=== PATIENT | female | born 1955 | race Caucasian/White ===

== ENCOUNTER 2017-09-27 07:25 | Inpatient (IN) | payer MEDICARE, MEDICAID ==
[~2017-09-27] VITALS: Ht 167.6 cm; Wt 181.9 kg
[~2017-09-27 07:25] MED LIST: BUMETANIDE0.5 MG PO; LEVEMIR SUBQ; MYSOLINE250 M1 PO; NEURONTIN 300300 M1 PO; NORVASC2.5 MG PO; NOVOLOG100 UNIT/1 SUBQ; PREDNISONE50 MG PO; ROBAXIN 750 MG750 M1 PO; SYNTHROID50 MCG PO; TOPAMAX 100 MG100 MG PO; ZPAK PO
[2017-09-27 07:26] VITALS: BP 192/99
[2017-09-27 08:05] LABS: ABSOLUTE EOSINOPHILS 0.5 thou/uL (0.0-0.7); ABSOLUTE MONOCYTES 0.4 thou/uL (0.0-1.2); ABSOLUTE NEUTROPHILS 4.9 thou/uL (1.6-8.1); BASOPHILS 0.7 %; HEMATOCRIT 42.5 % (37.0-47.0); HEMOGLOBIN 14.2 gm/dL (12.0-15.0); LYMPHOCYTES 14.3 %; MCH 31.2 pg (26.0-34.0); MCHC 33.5 g/dL (28.0-37.0); MONOCYTES 5.2 %; MPV 10.6 fl. (7.2-11.1); NUCLEATED RBCS 0 /100WBC; PLATELET COUNT* 139 thou/uL (150-400); POLYS 71.8 %; RBC 4.57 mil/uL (4.20-5.00); RDW-CV 13.8 % (10.5-14.5); WBC 6.9 thou/uL (4.0-11.0)
[2017-09-27 08:18] LABS: ANION GAP 6 mmol/L (7-16); BUN 12 mg/dL (7-18); CALCIUM 8.4 mg/dL (8.5-10.1); CHLORIDE 101 mmol/L (98-107); CO2 30 mmol/L (21-32); GLUCOSE 167 mg/dL (70-99); POTASSIUM 4.2 mmol/L (3.5-5.1); SODIUM 137 mmol/L (136-145)
[2017-09-27 08:24] LABS: INFLUENZA A ANTIGEN None Detected (None Detect); INFLUENZA B ANTIGEN None Detected (None Detect)
[2017-09-27 08:28] LABS: ALKALINE PHOSPHATASE 97 U/L (46-116); LIPASE 66 U/L (73-393); MAGNESIUM 1.6 mg/dL (1.8-2.4); NT-PRO BRAIN NAT PEPTIDE 285 pg/mL (<300); SGOT 32 U/L (15-37); SGPT 45 U/L (30-65); TOTAL BILIRUBIN 0.3 mg/dL (<0.1-1.0); TROPONIN-I LEVEL <0.06 ng/mL (<0.06)
[2017-09-27 08:58] LABS: URINE BILIRUBIN NEGATIVE (Negative); URINE BLOOD TRACE (Negative); URINE CLARITY CLEAR; URINE COLOR YELLOW; URINE GLUCOSE-RANDOM NEGATIVE (Negative); URINE KETONES NEGATIVE (Negative); URINE LEUKOCYTES-REFLEX NEGATIVE (Negative); URINE NITRITE-REFLEX NEGATIVE (Negative); URINE PROTEIN 3+ (Negative); URINE SPECIFIC GRAVITY 1.025 (1.005-1.030); URINE UROBILINOGEN 0.2 E.U./dl (0.2-1.0)
[2017-09-27 09:11] LABS: SQUAMOUS >10 Many /LPF (0-3)
[2017-09-27 09:12] LABS: HYALINE CASTS 0-3 Few /LPF (None Seen); MUCUS None Seen strn/LPF (None Seen)
[2017-09-27 09:13] LABS: BACTERIA-REFLEX 1-9 Few /HPF (None Seen); CRYSTALS None Seen /LPF (None Seen); URINE RBC 0-2 Rare /HPF (0-2); URINE WBC-REFLEX 6-15 Few /HPF (0-5)
[2017-09-27] MEDS ORDERED: ULTRAM 50MG TAB50 MG PO (10:34)
[2017-09-27] MEDS ORDERED: VENTOLIN HFA 1818 GM INH (10:34)
[2017-09-27] MEDS ORDERED: RESTASIS1 EACH OPHTHALMIC (10:35)
[2017-09-27] MEDS ORDERED: SINGULAIR 10 MG10 M1 PO (10:36)
[2017-09-27] MEDS ORDERED: BUMETANIDE0.25 MG/1 IM (10:36)
[2017-09-27] MEDS ORDERED: OXYBUTYNIN 5 MG5 M2 PO (10:37)
[2017-09-27] MEDS ORDERED: OMEPRAZOLE 20 MG CAP PO (10:37)
[2017-09-27 12:00] VITALS: BP 131/71
[2017-09-27 12:30] VITALS: BP 171/82
--- NOTE | 2017-09-27 13:28 | NUR ---
pt to room from ER, appears alert oo x 3, denies chest pain, denies SOB at rest, although appears sl dyspeinic at rest, came up on BIPAP machine , switched to 6l per nc to eat, states has heasdache , other no pain
--- NOTE | 2017-09-27 13:32 | NUR ---
pt had taken off the bipap and turned it off and put on NC
[2017-09-27 16:00] VITALS: BP 131/47
[2017-09-27 17:04] LABS: BE -2.2 mmol/L (-2 to +3); HCO3 23.5 mmol/L (22.0-26.0); PCO2 43.7 mmHg (35.0-45.0); PO2 109.4 mmHg (75.0-100.0); pH 7.349 (7.340-7.450)
--- NOTE | 2017-09-27 18:52 | NUR ---
PT RESTING IN BED, WITHOUT C/O . O X 4, ON O2 AT 6L PER NC., ABGS DONE, WILL PENNY ATKINSAP AT HS
[2017-09-27 20:00] VITALS: BP 140/55
[2017-09-28] VITALS: BP 154/56
[2017-09-28 02:05] LABS: HEMATOCRIT 41.1 % (37.0-47.0); HEMOGLOBIN 13.6 gm/dL (12.0-15.0); MCH 31.2 pg (26.0-34.0); MCHC 33.1 g/dL (28.0-37.0); MCV 94.3 fL (80.0-100.0); MPV 10.3 fl. (7.2-11.1); RBC 4.36 mil/uL (4.20-5.00); RDW-CV 13.8 % (10.5-14.5); WBC 8.4 thou/uL (4.0-11.0)
[2017-09-28 02:54] LABS: POTASSIUM 4.6 mmol/L (3.5-5.1); TOTAL BILIRUBIN 0.2 mg/dL (<0.1-1.0)
[2017-09-28 02:55] LABS: ALBUMIN 2.8 g/dL (3.4-5.0); CALCIUM 8.4 mg/dL (8.5-10.1); MAGNESIUM 2.1 mg/dL (1.8-2.4); TOTAL PROTEIN 6.7 g/dL (6.4-8.2)
--- NOTE | 2017-09-28 03:53 | NUR ---
PT ALERT ORIENTED. PT OBESE. GETS UP TO BSC WITH 1 PERSON ASSIST. TRAMADOL GIVEN FOR BACK AND LEG PAIN AT BEDTIME. TELEMETRY SHOWS SR 80S. MANY CAT SCRATCHES ON THERESA LEGS AND ARMS. PT STATES THEY ARE FROM A CAT. INITAL ASSESSMENT O2 AT 6 LITERS NC. ON BIPAP AT HS 14/6, 12 AND 35% WILL CONTINUE TO MONITOR.
[2017-09-28 04:13] VITALS: BP 138/69
[2017-09-28 08:00] VITALS: BP 173/76
--- NOTE | 2017-09-28 09:50 | NUR ---
ASSUMED RESPONSIBILITY OF PT THIS AM PT IS ALERT AND ORIENTEDX4 FORGETFUL WITH SOME TIMES SOA NOTED AND CONGESTION PT COUGHS UP CLEAR/YELLOW THICK SPUTUM AT TIMES ON 4L NC AND DOES NOT WEAR AT HOME PT C/O PAIN 6 OUT OF 10 IN BACK AND KNEES HER 'CHRONIC PAIN USUALLY 3-4' GAVE TRAMADOL WITH EFFECTIVENESS AT BEDSIDE DISCUSSED 'CAT SCRATCHES' ALL OVER BODY AND ENCOURAGED DECLAWING OR MAKING THEM OUTSIDE CATS D/T THE NUMEROUS AMOUNTS AND COULD CAUSE INFECTION PT DOES NOT AMBULATE AND SITS IN HER CHAIR MOST OF THE DAY STRONG FOUL ODOR NOTED FROM HER BODY NO REDNESS OR YEAST LIKE SYMTPOMS BESIDES THE SMELL, IN ABD FOLDS PT WILL PIVOT TO BSC BUT ALSO IS INCONTINENT AT TIMES ENCOURAGED TO CALL OUT BEFORE THAT HAPPENS BLOOD PRESSURE AND PULSE ELEVATED MEDS GIVEN LS WITH WHEEZING AND COARSE IN UPPER LOBES CALL LIGHT IN REACH CALLS OUT APPROPRIATELY WILL CONT TO MONITOR BED ALARM ON
[2017-09-28 12:00] VITALS: BP 143/51
--- NOTE | 2017-09-28 12:34 | EKG ---
[place] [address] ELECTROCARDIOGRAM REPORT Name: HEATHER DIEHL Room: [address] ADM IN [facility].#: [id number] Admission: 09/27/17 Attend Phys: Aruna Damico MD Discharge: Date of : 53 Report #: [id number] THIS REPORT FOR: //name// [facility] ED Test Date: 2017-09-27 Test Time: 07:47:23 Pat Name: HEATHER DIEHL Department: Room: [facility] Gender: F Floor Nurse: Abril RUBIO : 1955 Requested By: Williams Moffett Order Number: [id number] MD: Piter Villaseñor Measurements Intervals [employer] Rate: 122 P: 61 MS: 164 QRS: 12 QRSD: 77 T: 74 QT: 366 QTc: 522 Interpretive Statements Sinus tachycardia Prolonged QT interval Compared to ECG 07/14/2017 11:49:12 Prolonged QT interval now present Sinus rhythm no longer present Atrial premature complex(es) no longer present T-wave abnormality no longer present Electronically Signed On 09-28-2017 12:34:13 ICT QUALITY ASSURANCE ENGINEER by Piter Villaseñor [email or web address] <ELECTRONICALLY SIGNED> By: Melissa Villaseñor MD, [facility] 09/28/17 1234 0747 0747 Melissa Villaseñor MD, [facility] /EPI
--- NOTE | 2017-09-28 17:13 | NUR ---
PT DOWN TO ORTHO ROOM 111 REPORT GIVEN TO KADEN LONDONO NO CONCERNS AT THIS TIME
--- NOTE | 2017-09-28 17:30 | NUR ---
PATIENT ARRIVED TO UNIT AT 1710. RECIEVED REPORT FROM SPRING ESPARZA. PATIENT ALERT AND ORIENTED X 4. VITAL SIGNS STABLE ON 4L O2 NASAL CANULA. AGREE WITH PREVIOUE CHARTING AND ASSESSMENT.
[2017-09-28 21:00] VITALS: BP 123/48
[2017-09-28 23:42] VITALS: BP 160/61
[2017-09-29 04:23] VITALS: BP 161/73
[2017-09-29 05:16] LABS: ABSOLUTE BASOPHILS 0.1 thou/uL (0.0-0.2); ABSOLUTE LYMPHOCYTES 1.4 thou/uL (0.8-5.3); ABSOLUTE MONOCYTES 0.4 thou/uL (0.0-1.2); ABSOLUTE NEUTROPHILS 5.8 thou/uL (1.6-8.1); BASOPHILS 0.8 %; EOSINOPHILS 0.1 %; HEMATOCRIT 39.6 % (37.0-47.0); HEMOGLOBIN 13.1 gm/dL (12.0-15.0); LYMPHOCYTES 18.1 %; MCH 31.2 pg (26.0-34.0); MCHC 33.1 g/dL (28.0-37.0); MCV 94.3 fL (80.0-100.0); MONOCYTES 5.1 %; MPV 10.3 fl. (7.2-11.1); NUCLEATED RBCS 0 /100WBC; PLATELET COUNT* 146 thou/uL (150-400); POLYS 75.9 %; RDW-CV 14.1 % (10.5-14.5); WBC 7.7 thou/uL (4.0-11.0)
--- NOTE | 2017-09-29 05:38 | NUR ---
ALERT AND ORIENTED X4. UP TO BEDSIDE COMMODE WITH 1ASSIST. VOIDING WITHOUT DIFFICLTY. DENIES PAIN OR NAUSEA. ON BIPAP WHILE SLEEPING AND ON 4L/NC WHEN UP DURING THE DAY. LUNG SOUNDS COARSE WITH AN OCCASSIONAL WHEEZING NOTED. HAS NONPRODUCTIVE COUGH. O2 SAT 97% WITH O2. CALL LIGHT WITHIN REACH.
[2017-09-29 08:00] VITALS: BP 131/81
--- NOTE | 2017-09-29 09:49 | NUR ---
DC ORDERS REVIEWED. PT STATES SHE DOES NOT WANT HH AND USES [facility] FOR O2. CURRENT RX WITH DR CANO
[2017-09-29] MEDS ORDERED: PREDNISONE 10 M10 MG PO (10:01)
[2017-09-29] MEDS ORDERED: LEVAQUIN 500 M500 M3 PO (10:02)
[2017-09-29] MEDS ORDERED: DUONEB 2.5-0.5 M3 ML INH (10:03)
[2017-09-29 10:23] VITALS: BP 131/81
--- NOTE | 2017-09-29 13:01 | NUR ---
RECEIVED PT ORDERS ON 09/28/17 AT 1127. ATTEMPTED EVALUATION THIS AM HOWEVER PT HAD DISCHARGED FROM HOSPITAL PRIOR TO EVALUATION ATTEMPT.
[2018-02-03] MEDS ORDERED: DULCOLAX10 MG RECTAL (13:00)
[2018-02-03] MEDS ORDERED: LOPRESSOR25 PO (13:00)
[2018-02-03] MEDS ORDERED: TYLENOL325 MG PO (13:01)
[2018-02-03] MEDS ORDERED: MILK OF MA400 MG/5 M PO (13:01)
[2018-02-03] MEDS ORDERED: NORCO 5-325 TA1 EACH PO (13:02)
[2018-02-03] MEDS ORDERED: PERCOCET PO (13:02)
[2018-02-03] MEDS ORDERED: VITAMINC500 PO (13:03)
[2018-02-03] MEDS ORDERED: UNICOMPLEX M TA1 TA1 PO (13:03)
[2018-02-03] MEDS ORDERED: NYAMYC15 GM TOP (13:04)
== END 2017-09-29 11:30 | disposition home or self-care (01) | DRG 177 ==
LOC: M.ERS 07:25 → M.ORTHSURG 09:27 → M.TBA-ER 09:27 → M.2W 12:53 → M.ORTHSURG 09-28 16:46
PROVIDERS: Emergency Medicine Emergency Medical Services; ADMIT Internal Medicine
PROC: 5A09457 Assistance with Respiratory Ventilation, 24-96 Consecutive Hours, Continuous Positive Airway Pressure (ICD-10-PCS; principal; 2017-09-27)
DX: J15.6 Pneumonia due to other Gram-negative bacteria (principal); J96.01 Acute respiratory failure with hypoxia; J44.1 Chronic obstructive pulmonary disease with (acute) exacerbation; J44.0 Chronic obstructive pulmonary disease with (acute) lower respiratory infection; I10 Essential (primary) hypertension; E11.9 Type 2 diabetes mellitus without complications; Z87.891 Personal history of nicotine dependence; Z79.4 Long term (current) use of insulin; Z79.899 Other long term (current) drug therapy; Z88.1 Allergy status to other antibiotic agents; Z88.2 Allergy status to sulfonamides

== ENCOUNTER → 2017-10-20 | Outpatient (CLI) | payer MEDICARE, MEDICAID ==
[~2017-10-20] MED LIST changes: +ACIDOPHILUS1 EAC4 PO; +ASPIRIN325 PO; +AUGMENTIN 875-1 EACH PO; +AZITHROMYCIN 2250 MG PO; +BUMETANIDE0.25 MG/1 IM; +CARDIZEM CD240 MG PO; +CEFUROXIME250 MG PO; +CIPRO500 MG PO; +DIGOXIN250 MCG PO; +DULCOLAX10 MG RECTAL; +DUONEB 2.5-0.5 M3 ML INH; +FLAGYL500 M1 PO; +FLAGYL500 MG PO; +FLECAINIDE ACET50 M1 PO; +FLUCONAZOLE 10100 MG PO; +FOLIC ACID1 MG PO; +HYDROCHLOROTH12.5 M1 PO; +HYDROCODONE-AP1 EAC6 PO; +LEVAQUIN 500 M500 M3 PO; +LIDOCAINE1 EACH TRANSDERM; +LISINOPRIL10 MG PO; +LOPRESSOR25 PO; +MILK OF MA2400 MG/10 PO; +MILK OF MA400 MG/5 M PO; +MYSOLINE50 MG PO; +NORCO 5-325 TA1 EACH PO; +NORVASC2.5 MG; +NYAMYC15 GM TOP; +NYSTATIN 100,0015 G1 TOP; +OMEPRAZOLE 20 MG CAP PO; +OXYBUTYNIN 5 MG5 M2 PO; +PACERONE 200 M200 M1 PO; +PERCOCET PO; +PRADAXA150 MG PO; +PREDNISONE 10 M10 MG PO; +PROPAFENONE 15150 MG PO; +RESTASIS1 EACH OPHTHALMIC; +SINGULAIR 10 MG10 M1 PO; +SYNTHROID75 MCG PO; +TYLENOL325 MG PO; +ULTRAM 50MG TAB50 MG PO; +UNICOMPLEX M TA1 TA1 PO; +VANCOCIN 125 M125 M1 PO; +VENTOLIN HFA 1818 GM INH; +VITAMINC500 PO; +VOLTAREN GEL 1100 G2 TOP; +ZITHROMAX250 MG NG
== END ==
LOC: M.RAD 13:56
DX: R05 Cough (principal); R06.2 Wheezing

== ENCOUNTER 2017-11-09 11:23 | Inpatient (IN) | payer MEDICARE ==
[~2017-11-09] VITALS: Ht 167.6 cm; Wt 185.1 kg
[~2017-11-09 11:23] MED LIST changes: -ACIDOPHILUS1 EAC4 PO; -ASPIRIN325 PO; -AUGMENTIN 875-1 EACH PO; -AZITHROMYCIN 2250 MG PO; -CARDIZEM CD240 MG PO; -CEFUROXIME250 MG PO; -CIPRO500 MG PO; -DIGOXIN250 MCG PO; -DULCOLAX10 MG RECTAL; -FLAGYL500 M1 PO; -FLAGYL500 MG PO; -FLECAINIDE ACET50 M1 PO; -FLUCONAZOLE 10100 MG PO; -FOLIC ACID1 MG PO; -HYDROCHLOROTH12.5 M1 PO; -HYDROCODONE-AP1 EAC6 PO; -LIDOCAINE1 EACH TRANSDERM; -LISINOPRIL10 MG PO; -LOPRESSOR25 PO; -MILK OF MA2400 MG/10 PO; -MILK OF MA400 MG/5 M PO; -MYSOLINE50 MG PO; -NORCO 5-325 TA1 EACH PO; -NORVASC2.5 MG; -NYAMYC15 GM TOP; -NYSTATIN 100,0015 G1 TOP; -PACERONE 200 M200 M1 PO; -PERCOCET PO; -PRADAXA150 MG PO; -PROPAFENONE 15150 MG PO; -SYNTHROID75 MCG PO; -TYLENOL325 MG PO; -UNICOMPLEX M TA1 TA1 PO; -VANCOCIN 125 M125 M1 PO; -VITAMINC500 PO; -VOLTAREN GEL 1100 G2 TOP; -ZITHROMAX250 MG NG
[2017-11-09 11:32] VITALS: BP 214/115
[2017-11-09 11:54] LABS: URINE BILIRUBIN NEGATIVE (Negative); URINE BLOOD 1+ (Negative); URINE CLARITY CLEAR; URINE COLOR YELLOW; URINE GLUCOSE-RANDOM TRACE (Negative); URINE KETONES NEGATIVE (Negative); URINE LEUKOCYTES-REFLEX NEGATIVE (Negative); URINE NITRITE-REFLEX NEGATIVE (Negative); URINE PROTEIN 3+ (Negative); URINE UROBILINOGEN 0.2 E.U./dl (0.2-1.0)
[2017-11-09 12:09] LABS: BE 2.1 mmol/L (-2 to +3); HCO3 24.8 mmol/L (22.0-26.0); PCO2 33.7 mmHg (35.0-45.0); PO2 60.9 mmHg (75.0-100.0); pH 7.485 (7.340-7.450)
[2017-11-09 12:13] LABS: HEMATOCRIT 47.1 % (37.0-47.0); HEMOGLOBIN 15.6 gm/dL (12.0-15.0); MCH 30.6 pg (26.0-34.0); MCHC 33.1 g/dL (28.0-37.0); MCV 92.2 fL (80.0-100.0); MPV 10.8 fl. (7.2-11.1); NUCLEATED RBCS 0 /100WBC; PLATELET COUNT* 139 thou/uL (150-400); RBC 5.11 mil/uL (4.20-5.00); WBC 19.3 thou/uL (4.0-11.0)
[2017-11-09 12:18] LABS: CASTS None Seen /LPF (None Seen); CRYSTALS None Seen /LPF (None Seen); SQUAMOUS 4-10 Moderate /LPF (0-3)
[2017-11-09 12:19] LABS: BACTERIA-REFLEX 1-9 Few /HPF (None Seen); URINE RBC 3-10 Few /HPF (0-2); URINE WBC-REFLEX 6-15 Few /HPF (0-5)
[2017-11-09 12:21] LABS: ANION GAP 10 mmol/L (7-16); BUN 14 mg/dL (7-18); CALCIUM 9.2 mg/dL (8.5-10.1); CHLORIDE 99 mmol/L (98-107); CO2 27 mmol/L (21-32); CREATININE 1.2 mg/dL (0.6-1.3); GLUCOSE 241 mg/dL (70-99); POTASSIUM 4.1 mmol/L (3.5-5.1); SODIUM 136 mmol/L (136-145)
[2017-11-09 12:28] LABS: ALBUMIN 2.8 g/dL (3.4-5.0); ALKALINE PHOSPHATASE 108 U/L (46-116); SGOT 38 U/L (15-37); SGPT 47 U/L (30-65); TOTAL BILIRUBIN 0.7 mg/dL (<0.1-1.0); TOTAL PROTEIN 7.5 g/dL (6.4-8.2); TROPONIN-I LEVEL <0.06 ng/mL (<0.06)
[2017-11-09 12:32] LABS: ABSOLUTE LYMPHOCYTES 0.2 thou/uL (0.8-5.3); ABSOLUTE MONOCYTES 0.8 thou/uL (0.0-1.2); ABSOLUTE NEUTROPHILS 18.3 thou/uL (1.6-8.1); PLATELET ESTIMATE DECREASED
[2017-11-09 15:41] LABS: AMP/METHAMP Negative (Negative); BARBITURATES POSITIVE (Negative); BENZODIAZEPINES Negative (Negative); COCAINE Negative (Negative); METHADONE Negative (Negative); OPIATES POSITIVE (Negative); PCP Negative (Negative); THC Negative (Negative)
[2017-11-09 16:46] VITALS: BP 161/66
[2017-11-09 17:00] VITALS: BP 160/61
--- NOTE | 2017-11-09 17:57 | NUR ---
PT ADMITTED TO ROOM 232 W/ DX OF COPD / ABDOMINAL PAIN W/ ASSOCIATED HYPOXEMIA. POSITIVE SEPSIS SCREENING. PHYSICIAN NOTIFIED. REFER TO ASSESSMENT. PT HAS MULTIPLE CAT SCRATCHES TO BLE. EXCORIATED UNDER ABDOMINAL FOLDS. NEW ORDER OBTAINED FOR NYSTATIN POWDER FOR ABDOMINAL FOLDS AND BREASTS FOLDS. PT FEBRILE AT 102.5 F ON ADMIT. PRN TYLENOL ADMINISTERED W/ ICE PACKS PLACED TO AXILLARY. BARIATRIC BED ORDERED FOR PT. AND GRAND DAUGHTER AT BEDSIDE DURING ADMIT. PT REPORTS SHE IS NONAMBULATORY AT HOME AND USES A MOTORIZED W/C. HAM TO DEPENDENT DRAINAGE. TELE ST. NO OTHER CONCERNS AT THIS TIME. CLWR. WCTM.
[2017-11-09 20:30] VITALS: BP 122/57
[2017-11-09 21:25] LABS: MAGNESIUM 1.2 mg/dL (1.8-2.4); PHOSPHORUS* 2.3 mg/dL (2.5-4.9)
[2017-11-10] VITALS: BP 112/55
[2017-11-10 04:00] VITALS: BP 136/52
[2017-11-10 04:43] LABS: ABSOLUTE LYMPHOCYTES 1.1 thou/uL (0.8-5.3); ABSOLUTE MONOCYTES 1.1 thou/uL (0.0-1.2); ABSOLUTE NEUTROPHILS 17.6 thou/uL (1.6-8.1); BASOPHILS 0.2 %; HEMATOCRIT 37.3 % (37.0-47.0); LYMPHOCYTES 5.4 %; MCH 30.6 pg (26.0-34.0); MCV 92.5 fL (80.0-100.0); MONOCYTES 5.7 %; NUCLEATED RBCS 0 /100WBC; PLATELET COUNT* 125 thou/uL (150-400); POLYS 88.7 %; RBC 4.03 mil/uL (4.20-5.00); WBC 19.8 thou/uL (4.0-11.0)
[2017-11-10 04:56] LABS: INR 1.3; PROTIME 12.9 Seconds (9.20-11.50)
[2017-11-10 04:58] LABS: PREALBUMIN 12.3 mg/dL (18.0-35.7)
[2017-11-10 05:18] LABS: HEMOGLOBIN 12.3 gm/dL (12.0-15.0)
[2017-11-10 05:26] LABS: CALCIUM 7.5 mg/dL (8.5-10.1); CREATININE 1.3 mg/dL (0.6-1.3); MAGNESIUM 1.3 mg/dL (1.8-2.4); POTASSIUM 3.8 mmol/L (3.5-5.1)
[2017-11-10 05:37] LABS: INFLUENZA A ANTIGEN None Detected (None Detect); INFLUENZA B ANTIGEN None Detected (None Detect)
--- NOTE | 2017-11-10 05:56 | NUR ---
ASSUMED CARE AT 1999, ASSESSMENT CHARTED. PATIENT ALERT/ORIENTED X4, RESTING IN BED. DR. SU NOTIFIED, STATES WANTING THE IVF BOLUS GIVEN PER SEPSIS PROTOCOL, TO RECEIVE A TOTAL OF 5319 ML FOR THE INITIAL BOLUS. IVF INFUSING PER MAR. PATIENT TURNED AND REPOSITIONED IN BED Q2H WITH WEDGES. DENIES NEEDS. STATES HAVING PAIN TO HEAD, MEDS PER MAR WITH RELIEF NOTED. MAG REPLACED PER PROTOCOL. BED ALARM ON. CALL LIGHT WITHIN REACH, ENCOURAGED TO CALL FOR NEEDS.
[2017-11-10 07:40] VITALS: BP 128/51
--- NOTE | 2017-11-10 11:24 | NUR ---
RECIEVED REPORT FROM MORTEZA AND ASSUMED CARE OF PT @ 3240. PT A/O X4, VSS, TRACING SINUS ARRYTHMIA ON MONITOR, LUNG SOUNDS ARE DIMINISHED.HAM IN PLACE AND PATENT.IV LEFT AC NORMAL SALINE RUNNING @ 80ML/HR. PT IS CALM AND COOPERATIVE WITH NO C/O PAIN. PT MAINTAINS BEDREST AND HAS BEEN PUT ON BEDPAN A COUPLE OF TIMES WITH NO SUCCESS. PT WAS LEFT RESTING IN BED WITH CALL LIGHT AND FALL PRECAUTIONS IN PLACE. WILL CONTINUE TO [facility]. DOCTOR CAME TO SEE PT AND WANTS PT TO BE GETTING UP TO CHAIR AND HAM D/C.BARIATRIC BED DELIEVERED AND MOVED INTO PT ROOM. PT GOT UP TO CHAIR WITH SBA ASSIST AND HAM REMOVED @ 1215. POSSIBLE DISCHARGE TOMORROW OR THE NEXT DAY PER .
[2017-11-10 12:09] VITALS: BP 117/56
--- NOTE | 2017-11-10 14:14 | NUR ---
MET WITH PT BRIEFLY, SHE WAS EATING LUNCH. WENT BACK AND SHE WAS SLEEPING. SPOKE WITH PT'S SPOUSE AT BEDSIDE. PT AND SPOUSE LIVE IN MOBILE HOME. PT IS ABLE TO WALK SHORT DISTANCES IN THE HOME. SHE USES A LIFT CHAIR THAT SHE SLEEPS IN 'SOMETIMES' AND ALSO AN ELECTRIC W/C. SPOUSE ASSISTS PT WITH ADLS AND IADLS NEEDED. PT FOLLOWS WITH DR CANO. SHE HASN'T HAD HH OR BEEN TO SNF. PLAN IS TO RETURN [place] AT [place]. WILL FOLLOW
--- NOTE | 2017-11-10 14:44 | EKG ---
[place] [address] ELECTROCARDIOGRAM REPORT Name: SHANITAHEATHER Room: [address] ADM IN [facility]#: [id number] Admission: 11/09/17 Attend Phys: Adam Santillan MD Discharge: Date of : 53 Report #: [id number] THIS REPORT FOR: //name// [facility] ED Test Date: 2017-11-09 Test Time: 12:02:11 Pat Name: HEATHER DIEHL Department: Room: [facility] Gender: Quality Assurance Coordinator: DAVID : 1955 Requested By: Clary Morin Order Number: [id number] MD: Yahir Wylie Measurements Intervals [place] Rate: 131 P: 56 WY: 152 QRS: 7 QRSD: 83 T: 53 QT: 292 QTc: 431 Interpretive Statements Sinus tachycardia Atrial premature complex Compared to ECG 09/27/2017 07:47:23 Atrial premature complex(es) now present Prolonged QT interval no longer present Electronically Signed On 11-10-2017 14:44:27 CDT by Yahir Wylie [email or web address] <ELECTRONICALLY SIGNED> By: Yahir Wylie MD, [facility] 11/10/17 1444 1202 1202 Yahir Wylie MD, [facility] /EPI
[2017-11-10 16:08] VITALS: BP 120/50
--- NOTE | 2017-11-10 17:34 | NUR ---
PT HAS HAD NO CHANGE IN STATUS.O2 TITRATED DOWN FROM 2L TO NONE. PT HAS BEEN UP IN CHAIR DURING SHIFT AND GOT CLEANED UP WITH SELF CARE. SEPSIS AND ELECTROLYTE PROTOCOL MAINTAINED PER ORDERS. PT HAS BEEN UP TO BSC SEVERAL TIMES WITH SUCCESSFUL BOWEL MOVEMENTS. PT WILL CONTINUE TO BE MONITORED. FALL PRECAUTIONS AND CALL LIGHT IN PLACE. PT LEFT RESTING IN RECLINER CHAIR. HOURLY ROUNDING COMPLETED FOR PT SAFETY.
[2017-11-10 18:07] LABS: GLYCOHEMOGLOBIN (HGB A1C) 6.2 % (4.8-5.6)
[2017-11-10 20:00] VITALS: BP 145/69
[2017-11-11] VITALS: BP 139/73
[2017-11-11 04:29] VITALS: BP 157/79
[2017-11-11 05:29] LABS: ABSOLUTE LYMPHOCYTES 1.1 thou/uL (0.8-5.3); ABSOLUTE MONOCYTES 0.8 thou/uL (0.0-1.2); ABSOLUTE NEUTROPHILS 10.1 thou/uL (1.6-8.1); BASOPHILS 0.3 %; EOSINOPHILS 0.3 %; HEMATOCRIT 35.2 % (37.0-47.0); HEMOGLOBIN 11.8 gm/dL (12.0-15.0); LYMPHOCYTES 9.4 %; MCH 30.8 pg (26.0-34.0); MCHC 33.4 g/dL (28.0-37.0); MCV 92.2 fL (80.0-100.0); MONOCYTES 6.5 %; MPV 11.5 fl. (7.2-11.1); NUCLEATED RBCS 0 /100WBC; PLATELET COUNT* 112 thou/uL (150-400); POLYS 83.5 %; RBC 3.82 mil/uL (4.20-5.00); RDW-CV 13.3 % (10.5-14.5)
[2017-11-11 05:58] LABS: CALCIUM 7.9 mg/dL (8.5-10.1); CREATININE 1.4 mg/dL (0.6-1.3); MAGNESIUM 1.8 mg/dL (1.8-2.4); POTASSIUM 4.4 mmol/L (3.5-5.1); TOTAL BILIRUBIN 0.2 mg/dL (<0.1-1.0); TOTAL PROTEIN 5.3 g/dL (6.4-8.2)
--- NOTE | 2017-11-11 06:12 | NUR ---
ASSUMED CARE AT 1999, ASSESSMENT CHARTED. PATIENT ALERT/ORIENTED X4, RESTING IN BED. UP WITH ASSIST TO BSC. DENIES PAIN OR NEEDS. REFUSING SCD'S. REFUSING Q2H TURNS. MEDS PER OCT. REMAINS ON BARIATRIC BED. BED ALARM ON. CALL LIGHT WITHIN REACH, ENCOURAGED TO CALL FOR NEEDS.
[2017-11-11 07:45] VITALS: BP 132/50
--- NOTE | 2017-11-11 08:10 | NUR ---
PATIENT UP TO RECLINER THIS MORNING. DENIES PAIN OR NEEDS. BEDSIDE REPORT GIVEN. WILL MONITOR.
--- NOTE | 2017-11-11 10:20 | NUR ---
RECIEVED REPORT FROM MORTEZA AND ASSUMED CARE OF PT @ 0982. PT IS A/O X4, VSS,TRACING SR WITH PVCS ON MONTIOR. LUNGS ARE CLEAR DIMINISHED. BOWEL MOVEMENT THIS MORNING.IV LEFT AC NS RUNNING @ 80ML/HR. PT IS CALM AND COOPERATIVE WITH C/O PAIN IN LEFT KNEE 8 OUT OF 10-MEDICATIONS GIVEN WITH COMPLETE RELIEF. PT IS UP WITH ONE ASSIST TO BSC.PT LEFT RESTING IN RECLINER WITH CALL LIGHT AND FALL PRECAUTIONS IN PLACE. WILL CONTINUE TO MONITOR.
[2017-11-11] MEDS ORDERED: FLAGYL500 M1 PO (11:43)
[2017-11-11] MEDS ORDERED: CIPRO500 MG PO (11:43)
[2017-11-11 11:53] VITALS: BP 132/50
--- NOTE | 2017-11-11 14:18 | NUR ---
PT SEEN BY DOCTOR AND OK FOR DISCHARGE. DISCHARGE PAPERWORK COMPLETED PER ORDERS AND GONE OVER WITH PT. EDUCATION PROVIDED FOR NEW SCRIPTS AND DISCHARGE FOLLOW UPS. DENIES ANY QUESTIONS OR CONCERNS AT TIME OF DISCHARGE.ALL PERSONAL BELONGINGS TAKEN AND WHEELED OUT BY NURSING STAFF AND SPOUSE TO PERSONAL VEHICLE. IV AND HEART MONITOR REMOVED AND RETURNED TO NURSES STATION.
--- NOTE | 2017-11-11 16:37 | NUR ---
PT. DISCHARGED PRIOR TO O.T. EVAL. PLEASE ORDER FURTHER O.T. SERVICES IF NEEDED.
--- NOTE | 2017-11-12 17:44 | H ---
[place] [address] HISTORY AND PHYSICAL Name: HEATHER DIEHL Room: [address]#: [id number] Admission: 11/09/17 Attend Phys: Adam Santillan MD Discharge: 11/11/17 Date of : 53 Report #: [id number] THIS REPORT FOR: //name// CC: Adam Layne MD DATE OF SERVICE: 11/09/2017 CHIEF COMPLAINT OR REASON FOR ADMISSION: Fevers and chills, and possibility of sepsis. HISTORY OF PRESENT ILLNESS: The patient is a 62-year-old lady presents to the hospital with complaints of fevers and chills, and body aches associated with cough and phlegm that has been ongoing for the last day or so. She says she woke up this morning with high grade fevers and when she checked her temperature, it was 103. She also had some toothache for which she did salt water gargling and used Sensodyne paste and apparently the toothache subsided, but she started having cough with phlegm. She does have underlying history of COPD. She used to be a smoker and apparently she has quit smoking. She is seen in the Emergency Department quite uncomfortable and in moderate to severe distress. Her heart rate is in the 130s. Her respiratory rates are more than 22. She is on oxygen support. She denies any chest discomfort. She admits to nausea and vomiting as well, in addition, to cough and fevers. She apparently threw up at least 3 times. She is having abdominal discomfort. No loose stools. No urinary complaints. She is morbidly obese. No focal neurological complaints. PAST MEDICAL HISTORY: Significant for COPD, diabetes, hypertension, asthma, and hysterectomy. CURRENT MEDICATIONS: List for this patient include levothyroxine, Levemir, Robaxin, gabapentin, primidone, Bumex, tramadol, cyclosporine, Singulair, oxybutynin, insulin aspart, amlodipine, Topamax, albuterol, omeprazole, prednisone, and DuoNeb. ALLERGIES: ALLERGIC TO BACTRIM. REVIEW OF SYSTEMS: HEAD: No complaints of any headache. EYES: No visual symptoms. EARS: No hearing difficulty. NOSE: No nasal discharge. NECK: No neck pain or neck swelling. THROAT: No soreness in the throat. LUNGS: [place] [address] HISTORY AND PHYSICAL Name: HEATHER DIEHL Room: [address]#: [id number] Admission: 11/09/17 Attend Phys: Adam Santillan MD Discharge: 11/11/17 Date of : 53 Report #: [id number] CARDIOVASCULAR: No chest pain or palpitation. GASTROINTESTINAL: No nausea, vomiting, abdominal discomfort. GENITOURINARY: No urine frequency or urgency. Currently, has Dominguez catheter. NEUROLOGIC: Generally feels weak. HEMATOLOGIC: No complaints of easy bruising, easy bleeding. MUSCULOSKELETAL: Currently, no complaints of aches or pains in joints. She does have some chronic pain. HEMATOLOGIC: No complaints of easy bruising, easy bleeding. PSYCHIATRIC: No history of anxiety, depression. FAMILY MEDICAL HISTORY: Negative for any malignancy or heart disease. SOCIAL HISTORY: Ex-smoker. Denies any alcohol or any recreational drug use. PHYSICAL EXAMINATION: GENERAL: This is a 62-year-old lady seen in the emergency department, is awake and alert, in moderate distress. She is tachycardic and tachypneic. VITAL SIGNS: Reviewed. Blood pressure is elevated to 170/100. HEENT: Atraumatic, normocephalic. EYES: Conjunctivae are clear. Pupils somewhat constricted. Extraocular movements appeared to be intact. NEUROLOGICAL: Alert and oriented, able to move all extremities. NECK: Supple. LUNGS: Diminished, basilar crepitations heard and some expiratory rhonchi heard. CARDIOVASCULAR: S1, S2 tachycardic. ABDOMEN: Soft, nontender. Bowel sounds active. GENITOURINARY: Deferred. RECTAL: Deferred. SKIN: Warm and dry. Lower extremity edema is noticed. VASCULAR: Upper and lower extremity pulses present. BACK: Limited. Gait is not evaluated. NECK: Supple. LABORATORY DATA: For this patient, WBC count elevated to 19,000. Sodium 136, potassium 4.1, BUN is 14, and creatinine 1.2. Blood glucose elevated to 241. Lactic acid elevated to 2.3, pH 7.48, pCO2 of 33, WBC count of 19, hemoglobin 15, hematocrit 47, and platelet count 139. Urine suggested possibility of urinary tract infection. IMAGING STUDIES: Chest x-ray negative. CT scan is currently pending at this time. ASSESSMENT AND PLAN: This is a 62-year-old lady who presents to the hospital with moderate distress and fevers, chills, tachycardia, tachypnea, elevated white count, elevated lactic acid symptoms and signs [place] [address] HISTORY AND PHYSICAL Name: HEATHER DIEHL Room: [address] IN [facility]#: [id number] Admission: 11/09/17 Attend Phys: Adam Santillan MD Discharge: 11/11/17 Date of : 53 Report #: [id number] systemic inflammation sepsis, concern for pneumonitis, possible gastrointestinal origin as well. IMPRESSION: 1. Pneumonitis. 2. Systemic inflammatory response syndrome, possible sepsis. 3. Lactic acidosis. 4. Chronic obstructive pulmonary disease exacerbation. 5. Diabetes mellitus, uncontrolled with hyperglycemia. 6. Hypertension. 7. History of asthma. 8. Morbid obesity. 9. Edema. 10. Possible urinary tract infection. PLAN: To give IV fluid bolus, IV antibiotics, steroids, and bronchodilators. Control sugars. Follow the CT scan and telemetry monitoring. This patient's prognosis is guarded. For further plan and management, please also see orders and consults. The patient and patient's family have been educated regarding plan of care, they verbalized understanding. We will follow with the patient closely. <ELECTRONICALLY SIGNED> By: Adam Santillan MD 11/12/17 1744 1506 1532Amegan Santillan MD /[facility]
[2018-02-03] MEDS ORDERED: DULCOLAX10 MG RECTAL (13:00)
[2018-02-03] MEDS ORDERED: LOPRESSOR25 PO (13:00)
[2018-02-03] MEDS ORDERED: TYLENOL325 MG PO (13:01)
[2018-02-03] MEDS ORDERED: MILK OF MA400 MG/5 M PO (13:01)
[2018-02-03] MEDS ORDERED: PERCOCET PO (13:02)
[2018-02-03] MEDS ORDERED: NORCO 5-325 TA1 EACH PO (13:02)
[2018-02-03] MEDS ORDERED: VITAMINC500 PO (13:03)
[2018-02-03] MEDS ORDERED: UNICOMPLEX M TA1 TA1 PO (13:03)
[2018-02-03] MEDS ORDERED: NYAMYC15 GM TOP (13:04)
== END 2017-11-11 12:00 | disposition home or self-care (01) | DRG 371 ==
LOC: M.ERS 11:23 → M.2W 15:07 → M.TBA-ER 15:07 → M.2W 17:04
PROVIDERS: Personal Emergency Response Attendant; ADMIT Internal Medicine
DX: A04.9 Bacterial intestinal infection, unspecified (principal); J96.21 Acute and chronic respiratory failure with hypoxia; J44.0 Chronic obstructive pulmonary disease with (acute) lower respiratory infection; N39.0 Urinary tract infection, site not specified; R65.10 Systemic inflammatory response syndrome (SIRS) of non-infectious origin without acute organ dysfunction; Z68.44 Body mass index [BMI] 60.0-69.9, adult; J44.1 Chronic obstructive pulmonary disease with (acute) exacerbation; J98.11 Atelectasis; E11.65 Type 2 diabetes mellitus with hyperglycemia; E66.01 Morbid (severe) obesity due to excess calories; I10 Essential (primary) hypertension; Z90.710 Acquired absence of both cervix and uterus; Z79.2 Long term (current) use of antibiotics; Z79.4 Long term (current) use of insulin; Z79.899 Other long term (current) drug therapy; Z88.2 Allergy status to sulfonamides; Z88.8 Allergy status to other drugs, medicaments and biological substances

== ENCOUNTER 2017-11-19 12:12 | Inpatient (IN) | payer MEDICARE ==
[~2017-11-19] VITALS: Ht 167.6 cm; Wt 215.9 kg
--- NOTE | 2017-11-19 | NUR ---
ASSUMED CARE AT 1950, ASSESSMENT CHARTED. PATIENT ALERT/ORIENTED X4, RESTING IN BED. ON TELE, ATRIAL TACHYCARDIA WITH RATE IN THE UPPER 140'S. ON ROOM AIR, NO SOB NOTED, SATS 95%. IV TO RIGHT HAND LEAKING. NEW IV STARTED TO LEFT FOREARM, IV FLUIDS INFUSING PER MAR. UP WITH ASSIST TO BSC. DENIES PAIN OR NEEDS. SCD'S PLACED ON. HOME MEDICATIONS REVIEWED. MULTIPLE PICTURES TAKEN OF SCRATCHES TO SKIN, RASH TO BACK, AND BUTTOCKS. DR. SPANN NOTIFIED REGARDING HOME MEDICATIONS, ORDERS RECEIVED AND NOTED. DR. ZUÑIGA NOTIFIED REGARDING ELEVATED HEART RATE, ORDERS RECEIVED TO START CARDIZEM DRIP AT 10ML/HR AND TITRATE. MAG REPLACED PER PROTOCOL. VSS. BED ALARM ON. FALL PRECAUTIONS IN PLACE. CALL LIGHT WITHIN REACH, ENCOURAGED TO CALL FOR NEEDS.
[~2017-11-19 12:12] MED LIST changes: +CIPRO500 MG PO; +FLAGYL500 M1 PO
[2017-11-19 12:17] VITALS: BP 149/87
[2017-11-19 12:32] LABS: ABSOLUTE EOSINOPHILS 0.2 thou/uL (0.0-0.7); ABSOLUTE LYMPHOCYTES 1.1 thou/uL (0.8-5.3); ABSOLUTE MONOCYTES 0.5 thou/uL (0.0-1.2); ABSOLUTE NEUTROPHILS 5.3 thou/uL (1.6-8.1); BASOPHILS 0.6 %; EOSINOPHILS 3.1 %; HEMATOCRIT 40.5 % (37.0-47.0); HEMOGLOBIN 13.5 gm/dL (12.0-15.0); LYMPHOCYTES 15.2 %; MCH 30.9 pg (26.0-34.0); MCHC 33.4 g/dL (28.0-37.0); MCV 92.5 fL (80.0-100.0); MONOCYTES 7.3 %; MPV 10.1 fl. (7.2-11.1); NUCLEATED RBCS 0 /100WBC; PLATELET COUNT* 169 thou/uL (150-400); POLYS 73.8 %; RBC 4.37 mil/uL (4.20-5.00); RDW-CV 13.2 % (10.5-14.5); WBC 7.1 thou/uL (4.0-11.0)
[2017-11-19 12:55] LABS: APTT 29.4 Seconds (25.0-31.3); INR 1.1; PROTIME 11.1 Seconds (9.20-11.50)
[2017-11-19 13:18] LABS: ANION GAP 9 mmol/L (7-16); BUN 8 mg/dL (7-18); CALCIUM 8.5 mg/dL (8.5-10.1); CHLORIDE 106 mmol/L (98-107); CO2 25 mmol/L (21-32); CREATININE 1.2 mg/dL (0.6-1.3); GLUCOSE 109 mg/dL (70-99); POTASSIUM 3.7 mmol/L (3.5-5.1); SODIUM 140 mmol/L (136-145)
[2017-11-19 13:30] LABS: ALBUMIN 2.5 g/dL (3.4-5.0); ALKALINE PHOSPHATASE 87 U/L (46-116); LIPASE 76 U/L (73-393); MAGNESIUM 1.5 mg/dL (1.8-2.4); SGOT 25 U/L (15-37); SGPT 37 U/L (30-65); TOTAL BILIRUBIN 0.2 mg/dL (<0.1-1.0); TOTAL PROTEIN 7.1 g/dL (6.4-8.2); TROPONIN-I LEVEL <0.06 ng/mL (<0.06)
[2017-11-19 13:37] LABS: CK-MB MASS 0.8 ng/mL (<0.5-3.6); NT-PRO BRAIN NAT PEPTIDE 641 pg/mL (<300)
--- NOTE | 2017-11-19 15:19 | NUR ---
PT WAS GIVEN LITTLE SALENA SNACK CAKES, 8 OZ OF ORANGE JUICE AND ONE 8 OZ CAN OF COCA COLA UPON FINDINGS OF BLOOD GLUCOSE OF 31.
--- NOTE | 2017-11-19 15:54 | EKG ---
[place] [address] ELECTROCARDIOGRAM REPORT Name: SHANITAHEATHER KWOK Room: [place] [address] ADM IN [facility]#: [id number] Admission: 11/19/17 Attend Phys: Robert Caputo MD Discharge: Date of : 53 Report #: [id number] THIS REPORT FOR: //name// [facility] ED Test Date: 2017-11-19 Test Time: 12:22:26 Pat Name: HEATHER DIEHL Department: Room: [facility] Gender: F Palm And Back Forger: : 1955 Requested By: Narciso Yen Order Number: [id number] MD: Rene Robles Measurements Intervals [place] Rate: 143 P: 269 HI: 56 QRS: 37 QRSD: 116 T: 81 QT: 384 QTc: 593 Interpretive Statements atrial flutter Nonspecific intraventricular conduction delay Compared to ECG 11/09/2017 12:02:11 Sinus tachycardia no longer present Electronically Signed On 11-19-2017 15:54:15 CDT by Rene Robles [email or web address] <ELECTRONICALLY SIGNED> By: Rene Robles MD, [facility] 11/19/17 1554 1222 1222 Rene Robles MD, [facility] /EPI
--- NOTE | 2017-11-19 17:38 | NUR ---
DR. SPANN CONSULTING WITH PT.
[2017-11-19 17:54] VITALS: BP 120/81
[2017-11-19 18:05] VITALS: BP 144/69
--- NOTE | 2017-11-19 19:31 | NUR ---
RECEIVED REPORT FROM MYLES IN ER. PT ARRIVED TO TELE FLOOR AT 1805, ASSUMED CARE. VSS. O2 SAT 96% ON RA. PT A&O X4. ADMISSION HISTORY, EDUCATON AND ASSESSMENT COMPLETED CHARTED. STEEL PLATE PRINTER PLACED TRACING ST. PT ASYPMTOMATIC WITH TACHYCARDIA. PT DENIES CHEST PAIN. PT DENIES ANY OTHER PAIN OR DISCOMFORT AT THIS TIME. IV SALINE LOCKED. PT ORIENTED TO ROOM, BED AND CALL LIGHT, PT COMMUNICATEDS UNDERSTANDING. PT HAS MULTIPLE HEALING SCRATCHES TO BLE AND A FEW TO BUE THAT SHE STATES ARE FROM HER CATS AND DOG AT HOME. BOTTOM IS RED AND EXCORIATED FROM FREQUENT STOOLS. PT UP WITH 1 TO BEDSIDE COMMODE. VOIDING WITHOUT ISSUE. PT HAS HAD NO STOOLS SINCE ADMISSION TO FLOOR. PT ABLE TO EAT DINNER WITHOUT ISSUE. FAMILY AT BEDSIDE. CALL LIGHT IS WITHIN REACH. FALL PRECAUTIONS ARE IN PLACE. HOURLY ROUNDING PERFORMED.
[2017-11-19 19:50] VITALS: BP 148/71
[2017-11-20] VITALS (7 sets, daily range): BP systolic 106–128; BP diastolic 53–68
--- NOTE | 2017-11-20 | NUR ---
ASSUMED CARE AT 1950, ASSESSMENT CHARTED. PATIENT ALERT/ORIENTED X4, RESTING IN BED. ON TELE, ATRIAL TACHYCARDIA WITH RATE IN THE UPPER 140'S. ON ROOM AIR, NO SOB NOTED, SATS 95%. IV TO RIGHT HAND LEAKING. NEW IV STARTED TO LEFT FOREARM, IV FLUIDS INFUSING PER MAR. UP WITH ASSIST TO BSC. DENIES PAIN OR NEEDS. SCD'S PLACED ON. HOME MEDICATIONS REVIEWED. MULTIPLE PICTURES TAKEN OF SCRATCHES TO SKIN, RASH TO BACK, AND BUTTOCKS. DR. SPANN NOTIFIED REGARDING HOME MEDICATIONS, ORDERS RECEIVED AND NOTED. DR. ZUÑIGA NOTIFIED OF ELEVATED HEART RATE AFTER THE IV CARDIZEM PUSH, ORDERS RECEIVED TO START CARDIZEM DRIP AT 10ML/HR AND TITRATE. MAG REPLACED PER PROTOCOL. VSS. BED ALARM ON. FALL PRECAUTIONS IN PLACE. CALL LIGHT WITHIN REACH, ENCOURAGED TO CALL FOR NEEDS.
--- NOTE | 2017-11-20 04:02 | NUR ---
DR. ZUÑIGA PAGED AGAIN REGARDING ELEVATED HEART RATE, REMAINS UPPER 140'S. BP STABLE. CARDIZEM CONTINUES TO INFUSE AT 20MG/HR. DR. ZUÑIGA STATES TO INCREASE IVF RATE TO 150ML/HR AND TO RE-PAGE IF HEART RATE >160. PATIENT UPDATED. WILL MONITOR.
[2017-11-20 05:24] LABS: CALCIUM 8.3 mg/dL (8.5-10.1); MAGNESIUM 1.5 mg/dL (1.8-2.4); POTASSIUM 3.8 mmol/L (3.5-5.1)
--- NOTE | 2017-11-20 09:27 | NUR ---
ASSUMED CARE OF PT AROUND 0730 THIS AM. REFER TO ASSESSMENT. TELE REMAINS ATRIAL TACH W RATE IN THE 140'S. PHYSICIANS AWARE. PT CONTINUES ON CARDIZEM AT MAX DOSE. NO OTHER CONCERNS AT THIS TIME. CLWR. WCTM.
--- NOTE | 2017-11-20 14:08 | NUR ---
PT GIVEN FLECAINIDE BOLUS AROUND 1000 THIS AM. PT CONTINUES ON CARDIZEM GTT. RATE NOTED TO BE AROUND 115 AT THIS TIME. EKG OBTAINED AND STATES AFIB AT THIS TIME. DOES NOT APPEAR TO BE AFIB D/T REGULAR RHYTHM AT THIS TIME. NO OTHER CONCERNS AT THIS TIME. CLWR. WCTM.
--- NOTE | 2017-11-20 15:50 | NUR ---
CM ASSESSMENT: Pt is A&O. at bedside. Pt recently dc from hospital last month. assist with iADLs and does majority of ADLs. Pt is nonambulatory, uses an electric wc for mobility. No hx of HH or SNF. Goal is to return home once medically stable.
--- NOTE | 2017-11-20 16:36 | EKG ---
[place] [address] ELECTROCARDIOGRAM REPORT Name: SHANITAHEATHER KWOK Room: [address] ADM IN [facility]#: [id number] Admission: 11/19/17 Attend Phys: Robert Caputo MD Discharge: Date of : 53 Report #: [id number] THIS REPORT FOR: //name// [facility] Test Date: 2017-11-19 Test Time: 23:24:29 Pat Name: HEATHER DIEHL Department: Room: [address] Gender: F Audio Visual Aide: : 1955 Requested By: Robert Caputo Order Number: [id number] Reading MD: Jeronimo Verma Measurements Intervals [place] Rate: 143 P: 262 TX: 74 QRS: -9 QRSD: 72 T: 86 QT: 340 QTc: 525 Interpretive Statements Atrial flutter with 21 conduction Low voltage, precordial leads Abnormal R-wave progression, late transition Repol abnrm suggests ischemia, diffuse leads Compared to ECG 11/19/2017 12:22:26 Low QRS voltage now present Early repolarization now present Possible ischemia now present Intraventricular conduction delay no longer present Electronically Signed On 11-20-2017 16:36:36 CDT by Jeronimo Verma [email or web address] <ELECTRONICALLY SIGNED> By: Jeronimo Verma MD, [facility] 11/20/17 1636 2324 2324 Jeronimo Verma MD, [facility] /EPI
--- NOTE | 2017-11-20 16:43 | EKG ---
[place] [address] ELECTROCARDIOGRAM REPORT Name: HEATHER DIEHL Room: [address] ADM IN [facility]#: [id number] Admission: 11/19/17 Attend Phys: Robert Caputo MD Discharge: Date of : 53 Report #: [id number] THIS REPORT FOR: //name// [facility] Test Date: 2017-11-20 Test Time: 13:26:09 Pat Name: HEATHER DIEHL Department: Room: [address] Gender: F A P Manager: : 1955 Requested By: Robert Caputo Order Number: [id number] Reading MD: Jeronimo Verma Measurements Intervals [place] Rate: 115 P: MD: QRS: 8 QRSD: 86 T: -6 QT: 331 QTc: 458 Interpretive Statements Atrial flutter Compared to ECG 11/19/2017 12:22:26 no significant changes noted Electronically Signed On 11-20-2017 16:43:13 CDT by Jeronimo Verma [email or web address] <ELECTRONICALLY SIGNED> By: Jeronimo Verma MD, [facility] 11/20/17 1643 25 Jeronimo Verma MD, [facility] /EPI
--- NOTE | 2017-11-20 17:52 | NUR ---
PT SOMEWHAT PROGRESSING TOWARDS GOALS THIS SHIFT. PT HAS HAD A COUPLE LOOSE STOOLS THIS SHIFT. SAMPLE SENT TO LAB FOR C-DIFF ANALYSIS. PT IN SPECIAL CONTACT ISOLATION. TELE REMAINS A-TACH WITH RATE AROUND 115. NURSING STAFF NOTED BUGS CRAWLING OFF PT'S HOME W/C THIS SHIFT. FAMILY NOTIFIED TO REMOVE ALL PERSONAL BELONGINGS AND RETURN THEM HOME. PT WAS MOVED TO ROOM 205 TODAY WITH NEW LINEN/ GOWN. PT'S PREVIOUS ROOM TO BE EVALUATED BY [employer] COURTESY CLERK. PT STATES THEY HAVE HAD AN INFESTATION OF COCKROACHES AT HOME AND THEY HAVE NOT BEEN ABLE TO TREAT D/T WEATHER. VSS. NO OTHER CONCERNS AT THIS TIME. CLWR. WCTM.
--- NOTE | 2017-11-20 18:16 | CON ---
[address] [address] CONSULTATION Name: HEATHER DIEHL Room: [address] IN .R.#: [id number] Admission: 11/19/17 Attend Phys: Robert Caputo MD Discharge: Date of : 53 Report #: [id number] THIS REPORT FOR: //name// CC: Rene Caputo INDICATION: Atrial tachycardia. HISTORY OF PRESENT ILLNESS: The patient is a very pleasant, morbidly obese 62-year-old white female who was admitted to the hospital after being seen at her primary care physician's office and noted to be tachycardic. She is totally asymptomatic. Her heart rate is 140. She is not having chest pain. She has dyspnea on exertion, but no shortness of breath. She denies orthopnea or paroxysmal nocturnal dyspnea. She has no prior cardiac history. Her only cardiac risk factors are diabetes and hypertension. PAST MEDICAL HISTORY: 1. Type 2 diabetes mellitus. 2. Hypertension. 3. COPD. 4. Morbid obesity. 5. Cholecystectomy. FAMILY HISTORY: Noncontributory. SOCIAL HISTORY: The patient has a remote history of smoking only for approximately a year. She does not drink alcohol. REVIEW OF SYSTEMS: She reports remote pneumonia, COPD, dyspnea, lower extremity edema, diabetes, hypothyroidism, seasonal allergies, medical allergies to BACTRIM, arthritis, she wears glasses, otherwise 14-point review of systems unremarkable. PHYSICAL EXAMINATION: VITAL SIGNS: Blood pressure 128/64, pulse 144 and regular. GENERAL: This is a morbidly obese white female, in no distress. HEENT: Extraocular muscles intact. NECK: Thick. CHEST: Clear to auscultation. CARDIOVASCULAR: Regular rhythm without gallop rhythm. Rate is tachycardic. I do not appreciate obvious murmur. ABDOMEN: Protuberant, soft. EXTREMITIES: 3+ edema to fglhi-zdd-hmnvs bilaterally. SKIN: Warm and dry. A 12-lead EKG shows atrial tachycardia, likely atrial flutter with 2:1 [place] [address] CONSULTATION Name: HEATHER DIEHL Room: [address] IN [facility].#: [id number] Admission: 11/19/17 Attend Phys: Robert Caputo MD Discharge: Date of : 53 Report #: [id number] conduction. No acute ST segment abnormalities noted. LABS: Reviewed. Electrolytes are within normal limits. BUN 6, creatinine 1.0, serum glucose 119. TSH is minimally elevated at 6.247. CBC is within normal limits. IMPRESSION AND RECOMMENDATIONS: 1. New onset atrial tachycardia, likely atrial flutter with 2:1 conduction. We will start with flecainide bolus to see if the patient will chemically cardiovert to normal sinus rhythm. We would not recommend anticoagulation at this time. We will follow clinically. 2. Hypertension, well controlled on current regimen. 3. Diabetes per primary physician. 4. Hypothyroidism, on replacement. <ELECTRONICALLY SIGNED> By: Jeronimo Verma MD, FACC 11/20/17 1816 1000 1249Michael Dany Verma MD, FACC /nt
[2017-11-21] VITALS (15 sets, daily range): BP systolic 103–142; BP diastolic 49–125
--- NOTE | 2017-11-21 03:38 | NUR ---
ASSUMED PT CARE AT 1930, PT IS A&OX4, PT DENIES ANY PAIN OR NEEDS AT THIS TIME. PT IS TRACING ST ON THE MONITOR, HR IN THE 120'S. PT CARDIZEM INFUSING 20MLS/HR. VSS. PT IS UP STB TO THE BSC. SHE HAS NOT HAD ANY LOOSE STOOLS THIS SHIFT. PT DENIES ANY PAIN OR NEEDS AT THIS TIME. BED IN LOW POSITION, CALL LIGHT IN REACH, BED ALARM ON, YELLOW ARM BAND AND SOCKS IN PLACE. HOURLY ROUNDING COMPLETED FOR PT SAFETY. PT IS ON ISOLATION FOR PENDING C DIFF.
--- NOTE | 2017-11-21 07:30 | NUR ---
ASSUMED CARE OF PT ASSESSED AND DOCUMENTED. PT IS ON CARDIAC MONITER TRACING ST HR 127. PT IS A&O AND ON ROOM AIR. SHE IS ON ISO/PENDING C-DIFF. PT IS ON FALL RISK PER FACILITY PROTOCOL. BED IS IN LOW POSITION CALL LIGHT IS IN REACH. WM.
--- NOTE | 2017-11-21 09:00 | NUR ---
CALLED PHARMACY RE CYCLOSPORINE NOT IN PXYSIS.
--- NOTE | 2017-11-21 17:17 | TEE ---
[place] [address] TRANSESOPHAGEAL ECHOCARDIOGRAM Name: HEATHER DIEHL Room: [address] IN [facility]#: [id number] Admission: 11/19/17 Attend Phys: Robert Caputo, Discharge: Date of : 53 Date of Service: 11/21/17 1716 Report #: [id number] THIS REPORT FOR: //name// APPROVED REPORT Study performed: 11/21/2017 15:54:33 EXAM: Transesophageal Echocardiogram Patient Location: In-Patient Room #: [facility] Status: routine BSA: 2.89 HR: 110 bpm BP: 127/73 mmHg Rhythm: Atrial Fibrillation Other Information Study Quality: Good Indications Atrial Fibrillation Echo Enhancing Agent Indication: Rule out Shunt Agent(s) / Amount(s) Used: Agitated Saline 10 cc Procedure After obtaining informed consent, patient underwent transesophageal echo in the Bedside. Type of Sedation : Conscious Sedation Sedation was administered by Irlanda Thomas RN. Sedation start time: 1610 Case end Time: 1620 Sedation was achieved intravenously with: Versed (3) Fentanyl (75) Transesophageal probe was inserted and advanced into esophagus without difficulty by Jeronimo Verma MD, [facility]. Echo enhancement indication: R/O Septal defect. Echo enhancement agent administered: Agitated Saline The YIMI was performed without complications. Synchronized Cardioversion acheived with 300 Joules after 1 attempt(s). Rhythm following Synchronized Cardioversion: Normal Sinus Rhythm Throughout the procedure, the blood pressure, pulse oximetry, cardiac rhythm, and rate were monitored. The patient tolerated the procedure without [place] [address] TRANSESOPHAGEAL ECHOCARDIOGRAM Name: HEATHER DIEHL Room: [address] IN [facility]#: [id number] Admission: 11/19/17 Attend Phys: Robert Caputo, Discharge: Date of : 53 Date of Service: 11/21/17 1716 Report #: [id number] from conscious sedation was uneventful and vital signs were stable. Left Ventricle The left ventricle is normal size. There is normal LV segmental wall motion. There is normal left ventricular wall thickness. Left ventricular systolic function is normal. LVEF is >70%. Right Ventricle The right ventricle is normal size. The right ventricular systolic function is normal. Atria Left atrium is moderately dilated. No thrombus is visualized in the left atrium or appendage. Interatrial septum is intact without evidence of ASD or PFO. The right atrium size is normal. Aortic Valve The aortic valve is normal in structure. No aortic regurgitation is present. There is no aortic valvular stenosis. Mitral Valve The mitral valve is normal in structure. There is no mitral valve regurgitation noted. No evidence of mitral valve stenosis. Tricuspid Valve The tricuspid valve is normal in structure. Mild tricuspid regurgitation. Pulmonic Valve Pulmonic valve is not well visualized. Great Vessels The aortic root is normal in size. Aortic arch is not visualized. Pericardium Trace pericardial effusion. <Conclusion> The left ventricle is normal size. There is normal left ventricular wall thickness. Left ventricular systolic function is normal. LVEF is >70%. Left [place] [address] TRANSESOPHAGEAL ECHOCARDIOGRAM Name: HEATHER DIEHL Room: [address] IN ..#: [id number] Admission: 11/19/17 Attend Phys: Robert Caputo, Discharge: Date of : 53 Date of Service: 11/21/171715 Report #: [id number] No thrombus is visualized in the left atrium or appendage. Interatrial septum is intact without evidence of ASD or PFO. <ELECTRONICALLY SIGNED> By: Jeronimo Verma MD, FACC 11/21/171715 15 15 Jeronimo Verma MD, FACC /INF
--- NOTE | 2017-11-21 18:51 | NUR ---
PT HAD YIMI ,CARDIOVERSION THIS SHIFT IN PT ROOM DUE TO ISO STATUS. PT IS NOW NSR. CALLED DR CAMERON RE PTS MD OF 62. CARDIZEN GTT D/C'D BY . PTS C-DIFF IS NEG SO PT OFF ISO. EDUCATION GIVEN ON DEMAND. HOURLY ROUYNDING COMPLETE. MG PROTOCOL COMPLETE AND IS WNL.
[2017-11-22] VITALS: BP 110/60
--- NOTE | 2017-11-22 03:39 | NUR ---
ASSUMED PT CARE AT 1930, PT IS A&OX4, PT IS TRACING NSR ON THE MONITOR, ON RA SATTING MID TO HIGH 90'S. PT DNEIES ANY PAIN OR NEEDS AT THIS TIME. PT IS UP STB TO THE BSC. PT HAS NOT HAD ANY BM'S THIS SHIFT. PT HAS SLEPT ON AND OFF THROUGHOUT THE SHIFT. BED IN LOW POSITION, CALL LIGHT IN REACH, BED ALARM ON, YELLOW ARM BAND AND SOCKS IN PLACE. HOURLY ROUNDING COMPLETED FOR PT SAFETY.
[2017-11-22 04:00] VITALS: BP 131/69
[2017-11-22 06:11] LABS: CREATININE 1.4 mg/dL (0.6-1.3); MAGNESIUM 1.8 mg/dL (1.8-2.4); POTASSIUM 4.4 mmol/L (3.5-5.1)
[2017-11-22] MEDS ORDERED: SYNTHROID75 MCG PO (07:43)
[2017-11-22] MEDS ORDERED: FLECAINIDE ACET50 M1 PO (07:43)
[2017-11-22] MEDS ORDERED: LOPRESSOR25 PO (07:43)
[2017-11-22] MEDS ORDERED: ASPIRIN325 PO (07:48)
--- NOTE | 2017-11-22 08:16 | NUR ---
PT RESTING IN BED, APPEARS ALERT O X 4, DENIES CHEST PAIN, SOB, PAIN OR DISCOMFORT, SR ON MONITOR
[2017-11-22 08:18] VITALS: BP 130/78
[2017-11-22 08:28] VITALS: BP 130/78
[2017-11-22 12:21] VITALS: BP 130/856
--- NOTE | 2017-11-22 12:26 | EKG ---
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 : 1955 Requested By: Jeronimo Verma Order Number: [id number] Reading MD: Enrique Rodrigues Measurements Intervals [place] Rate: 79 P: 26 MT: 237 QRS: 20 QRSD: 104 T: 52 QT: 407 QTc: 467 Interpretive Statements Sinus rhythm Prolonged MT interval Low voltage, precordial leads Compared to ECG 11/20/2017 13:26:09 First degree AV block now present Low QRS voltage now present Atrial flutter no longer present Electronically Signed On 11-22-2017 12:26:19 CDT by Enrique Rodrigues [email or web address] <ELECTRONICALLY SIGNED> By: Enrique Rodrigues MD, [facility] 11/22/17 1226 0740 0740 Enrique Rodrigues MD, [facility] /EPI
[2017-11-22 12:28] VITALS: BP 130/78
--- NOTE | 2017-11-24 08:18 | CARD ---
[address] [address] CARDIAC CATH REPORT Name: HEATHER DIEHL Room: [address]#: [id number] Admission: 11/19/17 Attend Phys: Robert Caputo MD Discharge: 11/22/17 Date of : 53 Report #: [id number] THIS REPORT FOR: //name// CC: Rene Caputo DATE OF SERVICE: 11/21/2017 INDICATION: Persistent atrial flutter. PROCEDURE: Direct current cardioversion. DESCRIPTION OF PROCEDURE: After informed consent was obtained, the patient underwent transesophageal echocardiogram. No evidence of intracardiac thrombus was noted. A full report will be submitted separately. After transesophageal echocardiogram was completed, adequate sedation was assured. The patient was cardioverted with a single biphasic shock of 300 joules from atrial flutter to normal sinus rhythm. IMPRESSION: 1. Persistent atrial flutter. 2. Successful direct current cardioversion to normal sinus rhythm after transesophageal echocardiogram. <ELECTRONICALLY SIGNED> By: Jeronimo Verma MD, FACC 11/24/17817 1716 1918[facility] MD, FACC /nt
[2018-02-03] MEDS ORDERED: DULCOLAX10 MG RECTAL (13:00)
[2018-02-03] MEDS ORDERED: LOPRESSOR25 PO (13:00)
[2018-02-03] MEDS ORDERED: MILK OF MA400 MG/5 M PO (13:01)
[2018-02-03] MEDS ORDERED: TYLENOL325 MG PO (13:01)
[2018-02-03] MEDS ORDERED: PERCOCET PO (13:02)
[2018-02-03] MEDS ORDERED: NORCO 5-325 TA1 EACH PO (13:02)
[2018-02-03] MEDS ORDERED: UNICOMPLEX M TA1 TA1 PO (13:03)
[2018-02-03] MEDS ORDERED: VITAMINC500 PO (13:03)
[2018-02-03] MEDS ORDERED: NYAMYC15 GM TOP (13:04)
== END 2017-11-22 14:09 | disposition home or self-care (01) | DRG 394 ==
LOC: M.ERS 12:12 → M.2W 15:01 → M.TBA-ER 15:01 → M.2W 18:04
PROVIDERS: Family Medicine; ADMIT Internal Medicine
PROC: B24BZZ4 Ultrasonography of Heart with Aorta, Transesophageal (ICD-10-PCS; principal; 2017-11-21)
PROC: 5A2204Z Restoration of Cardiac Rhythm, Single (ICD-10-PCS; principal; 2017-11-21)
DX: K52.1 Toxic gastroenteritis and colitis (principal); I47.1 Supraventricular tachycardia; I48.92 Unspecified atrial flutter; Z68.45 Body mass index [BMI] 70 or greater, adult; T37.3X5A Adverse effect of other antiprotozoal drugs, initial encounter; E66.01 Morbid (severe) obesity due to excess calories; J44.9 Chronic obstructive pulmonary disease, unspecified; E11.9 Type 2 diabetes mellitus without complications; I10 Essential (primary) hypertension; E03.9 Hypothyroidism, unspecified; Z90.49 Acquired absence of other specified parts of digestive tract; Z90.710 Acquired absence of both cervix and uterus; Z87.891 Personal history of nicotine dependence; Z79.4 Long term (current) use of insulin; Z79.899 Other long term (current) drug therapy; Z88.1 Allergy status to other antibiotic agents; Z88.2 Allergy status to sulfonamides; Z82.49 Family history of ischemic heart disease and other diseases of the circulatory system; Z80.8 Family history of malignant neoplasm of other organs or systems; Y92.89 Other specified places as the place of occurrence of the external cause

== ENCOUNTER 2017-12-12 22:03 | Inpatient (IN) | payer MEDICARE, MEDICAID ==
[~2017-12-12] VITALS: Ht 167.6 cm; Wt 186.0 kg
[~2017-12-12 22:03] MED LIST changes: +ASPIRIN325 PO; +FLECAINIDE ACET50 M1 PO; +LOPRESSOR25 PO; +SYNTHROID75 MCG PO
[2017-12-12 22:10] VITALS: BP 122/36
[2017-12-12 22:26] LABS: ABSOLUTE BASOPHILS 0.1 thou/uL (0.0-0.2); ABSOLUTE EOSINOPHILS 0.4 thou/uL (0.0-0.7); ABSOLUTE LYMPHOCYTES 1.4 thou/uL (0.8-5.3); ABSOLUTE MONOCYTES 0.9 thou/uL (0.0-1.2); BASOPHILS 0.7 %; EOSINOPHILS 4.1 %; HEMOGLOBIN 11.8 gm/dL (12.0-15.0); LYMPHOCYTES 13.1 %; MCH 30.7 pg (26.0-34.0); MCHC 32.8 g/dL (28.0-37.0); MCV 93.5 fL (80.0-100.0); MONOCYTES 8.4 %; NUCLEATED RBCS 0 /100WBC; PLATELET COUNT* 170 thou/uL (150-400); POLYS 73.7 %; RBC 3.85 mil/uL (4.20-5.00); RDW-CV 14.8 % (10.5-14.5); WBC 10.8 thou/uL (4.0-11.0)
[2017-12-12 22:35] LABS: ANION GAP 12 mmol/L (7-16); BUN 26 mg/dL (7-18); CALCIUM 7.9 mg/dL (8.5-10.1); CHLORIDE 100 mmol/L (98-107); CO2 20 mmol/L (21-32); CREATININE 1.7 mg/dL (0.6-1.3); GLUCOSE 82 mg/dL (70-99); POTASSIUM 4.3 mmol/L (3.5-5.1); SODIUM 132 mmol/L (136-145)
[2017-12-12 22:36] LABS: APTT 37.8 Seconds (25.0-31.3); INR 1.2; PROTIME 12.1 Seconds (9.20-11.50)
[2017-12-12 22:43] LABS: URINE BILIRUBIN NEGATIVE (Negative); URINE BLOOD 1+ (Negative); URINE CLARITY SL CLOUDY; URINE COLOR YELLOW; URINE GLUCOSE-RANDOM NEGATIVE (Negative); URINE KETONES NEGATIVE (Negative); URINE LEUKOCYTES-REFLEX 3+ (Negative); URINE NITRITE-REFLEX NEGATIVE (Negative); URINE PROTEIN 1+ (Negative); URINE UROBILINOGEN 0.2 E.U./dl (0.2-1.0)
[2017-12-12 22:51] LABS: BACTERIA-REFLEX >30 Many /HPF (None Seen); MUCUS None Seen strn/LPF (None Seen); SQUAMOUS >10 Many /LPF (0-3); URINE WBC-REFLEX >25 Many /HPF (0-5); WBC CLUMPS Few (None Seen)
[2017-12-12 22:52] LABS: CRYSTALS None Seen /LPF (None Seen); HYALINE CASTS 0-3 Few /LPF (None Seen); URINE RBC 0-2 Rare /HPF (0-2)
[2017-12-12 22:53] LABS: ALBUMIN 2.7 g/dL (3.4-5.0); ALKALINE PHOSPHATASE 71 U/L (46-116); NT-PRO BRAIN NAT PEPTIDE 846 pg/mL (<300); SGOT 26 U/L (15-37); SGPT 25 U/L (30-65); TOTAL BILIRUBIN 0.3 mg/dL (<0.1-1.0); TROPONIN-I LEVEL <0.06 ng/mL (<0.06)
[2017-12-12 23:45] VITALS: BP 116/44
[2017-12-13] VITALS: BP 109/35
[2017-12-13 04:00] VITALS: BP 103/38
[2017-12-13 08:30] VITALS: BP 140/54
--- NOTE | 2017-12-13 08:36 | EKG ---
[place] [address] ELECTROCARDIOGRAM REPORT Name: SHANITAHEATHER Room: [address] IN [facility]#: [id number] Admission: 12/12/17 Attend Phys: Robert Caputo MD Discharge: Date of : 53 Report #: [id number] THIS REPORT FOR: //name// [facility] ED Test Date: 2017-12-12 Test Time: 22:25:52 Pat Name: HEATHER DIEHL Department: Room: Gender: Accreditation Specialist: BARRON Samuels : 1955 Requested By: Narciso Yen Order Number: [id number] MD: Jeronimo Verma Measurements Intervals [place] Rate: 59 P: 38 [place]: 268 QRS: 2 QRSD: 115 T: 31 QT: 483 QTc: 479 Interpretive Statements Sinus arrhythmia Prolonged [place] interval Incomplete right bundle branch block Compared to ECG 11/22/2017 07:40:09 Incomplete right bundle-branch block now present Electronically Signed On 12-13-2017 8:36:37 CDT by Jeronimo Verma [email or web address] <ELECTRONICALLY SIGNED> By: Jeronimo Verma MD, FACC 12/13/17 0836 2225 Jeronimo Verma MD, [facility] /EPI
[2017-12-13 16:04] VITALS: BP 137/70
[2017-12-14 00:12] VITALS: BP 150/59
[2017-12-14 03:41] LABS: HEMATOCRIT 34.9 % (37.0-47.0); HEMOGLOBIN 11.6 gm/dL (12.0-15.0); MCH 30.7 pg (26.0-34.0); MCHC 33.1 g/dL (28.0-37.0); MCV 92.9 fL (80.0-100.0); RBC 3.76 mil/uL (4.20-5.00); RDW-CV 15.1 % (10.5-14.5); WBC 7.4 thou/uL (4.0-11.0)
[2017-12-14 03:45] LABS: CALCIUM 8.4 mg/dL (8.5-10.1); CREATININE 1.2 mg/dL (0.6-1.3); POTASSIUM 4.5 mmol/L (3.5-5.1)
[2017-12-14 07:47] VITALS: BP 110/80
[2017-12-14 16:15] LABS: BE -4.1 mmol/L (-2 to +3); HCO3 22.1 mmol/L (22.0-26.0); PCO2 45.3 mmHg (35.0-45.0); PO2 106.7 mmHg (75.0-100.0); pH 7.307 (7.340-7.450)
[2017-12-14 16:44] VITALS: BP 159/79
[2017-12-14 20:00] VITALS: BP 147/67
[2017-12-15 00:42] VITALS: BP 123/54
[2017-12-15 05:05] LABS: CALCIUM 8.2 mg/dL (8.5-10.1); CREATININE 1.1 mg/dL (0.6-1.3); MAGNESIUM 1.8 mg/dL (1.8-2.4); POTASSIUM 3.9 mmol/L (3.5-5.1)
[2017-12-15 07:55] VITALS: BP 120/63
[2017-12-15 10:49] VITALS: BP 120/63
[2017-12-15] MEDS ORDERED: LIDOCAINE1 EACH TRANSDERM (11:02)
[2017-12-15] MEDS ORDERED: MILK OF MA2400 MG/10 PO (11:02)
[2017-12-15] MEDS ORDERED: FOLIC ACID1 MG PO (11:04)
[2017-12-15] MEDS ORDERED: HYDROCODONE-AP1 EAC6 PO (11:06)
[2017-12-15] MEDS ORDERED: NYSTATIN 100,0015 G1 TOP (11:07)
[2017-12-15] MEDS ORDERED: CEFUROXIME250 MG PO (11:53)
[2017-12-15 16:00] VITALS: BP 152/67
[2017-12-15 21:12] VITALS: BP 161/53
[2017-12-16 08:07] VITALS: BP 150/56
[2017-12-16 16:00] VITALS: BP 143/47
[2017-12-17 00:31] VITALS: BP 156/62
[2017-12-17] MEDS ORDERED: FLUCONAZOLE 10100 MG PO (08:08)
[2017-12-17] MEDS ORDERED: NYSTATIN 100,0015 G1 TOP (08:08)
[2017-12-17 09:20] VITALS: BP 132/64
[2018-02-03] MEDS ORDERED: DULCOLAX10 MG RECTAL (13:00)
[2018-02-03] MEDS ORDERED: LOPRESSOR25 PO (13:00)
[2018-02-03] MEDS ORDERED: MILK OF MA400 MG/5 M PO (13:01)
[2018-02-03] MEDS ORDERED: TYLENOL325 MG PO (13:01)
[2018-02-03] MEDS ORDERED: PERCOCET PO (13:02)
[2018-02-03] MEDS ORDERED: NORCO 5-325 TA1 EACH PO (13:02)
[2018-02-03] MEDS ORDERED: VITAMINC500 PO (13:03)
[2018-02-03] MEDS ORDERED: UNICOMPLEX M TA1 TA1 PO (13:03)
[2018-02-03] MEDS ORDERED: NYAMYC15 GM TOP (13:04)
== END 2017-12-17 10:27 | disposition left against medical advice (07) | DRG 683 ==
LOC: M.ERS 22:03 → M.TBA-ER 23:07 → M.ORTHSURG 23:07 → M.ICU 23:14 → M.ORTHSURG 12-13 11:00
PROVIDERS: Family Medicine; ADMIT Internal Medicine
DX: N17.9 Acute kidney failure, unspecified (principal); N39.0 Urinary tract infection, site not specified; I50.32 Chronic diastolic (congestive) heart failure; Z68.44 Body mass index [BMI] 60.0-69.9, adult; I13.0 Hypertensive heart and chronic kidney disease with heart failure and stage 1 through stage 4 chronic kidney disease, or unspecified chronic kidney disease; L89.322 Pressure ulcer of left buttock, stage 2; J44.9 Chronic obstructive pulmonary disease, unspecified; E66.01 Morbid (severe) obesity due to excess calories; N18.3 Chronic kidney disease, stage 3 (moderate); E11.22 Type 2 diabetes mellitus with diabetic chronic kidney disease; B37.2 Candidiasis of skin and nail; I48.0 Paroxysmal atrial fibrillation; R25.1 Tremor, unspecified; M17.11 Unilateral primary osteoarthritis, right knee; Z53.21 Procedure and treatment not carried out due to patient leaving prior to being seen by health care provider; L89.312 Pressure ulcer of right buttock, stage 2; J45.909 Unspecified asthma, uncomplicated; Z90.710 Acquired absence of both cervix and uterus; Z86.73 Personal history of transient ischemic attack (TIA), and cerebral infarction without residual deficits; Z98.49 Cataract extraction status, unspecified eye; Z88.2 Allergy status to sulfonamides; Z88.8 Allergy status to other drugs, medicaments and biological substances; Z82.49 Family history of ischemic heart disease and other diseases of the circulatory system; Z79.82 Long term (current) use of aspirin; Z79.899 Other long term (current) drug therapy

== ENCOUNTER 2017-12-30 11:59 | Emergency (ER) | payer MEDICARE, MEDICAID ==
[~2017-12-30] VITALS: Ht 167.6 cm; Wt 171.5 kg
[~2017-12-30 11:59] MED LIST changes: +CEFUROXIME250 MG PO; +FLUCONAZOLE 10100 MG PO; +FOLIC ACID1 MG PO; +HYDROCODONE-AP1 EAC6 PO; +LIDOCAINE1 EACH TRANSDERM; +MILK OF MA2400 MG/10 PO; +NYSTATIN 100,0015 G1 TOP
[2017-12-30] MEDS ORDERED: PRADAXA150 MG PO (12:10)
[2017-12-30 13:10] VITALS: BP 154/74
--- NOTE | 2017-12-30 14:59 | EKG ---
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 : 1955 Requested By: Narciso Yen Order Number: [id number] MD: Jeronimo Verma Measurements Intervals [place] Rate: 107 P: 249 [place]: 192 QRS: -30 QRSD: 88 T: 17 QT: 378 QTc: 505 Interpretive Statements Sinus or ectopic atrial tachycardia Abnormal R-wave progression, late transition Inferior infarct, old Lateral leads are also involved Prolonged QT interval Nonspecific T-wave abnormality Compared to ECG 12/12/2017 22:25:52 Myocardial infarct finding now present Prolonged QT interval now present Sinus arrhythmia no longer present First degree AV block no longer present Incomplete right bundle-branch block no longer present Electronically Signed On 12-30-2017 14:59:09 CDT by Jeronimo Verma [email or web address] <ELECTRONICALLY SIGNED> By: Jeronimo Verma MD, FAC 12/30/17 1459 1216 1216 Jeronimo Verma MD, [facility] /EPI
[2018-02-03] MEDS ORDERED: DULCOLAX10 MG RECTAL (13:00)
[2018-02-03] MEDS ORDERED: LOPRESSOR25 PO (13:00)
[2018-02-03] MEDS ORDERED: TYLENOL325 MG PO (13:01)
[2018-02-03] MEDS ORDERED: MILK OF MA400 MG/5 M PO (13:01)
[2018-02-03] MEDS ORDERED: PERCOCET PO (13:02)
[2018-02-03] MEDS ORDERED: NORCO 5-325 TA1 EACH PO (13:02)
[2018-02-03] MEDS ORDERED: VITAMINC500 PO (13:03)
[2018-02-03] MEDS ORDERED: UNICOMPLEX M TA1 TA1 PO (13:03)
[2018-02-03] MEDS ORDERED: NYAMYC15 GM TOP (13:04)
== END 2017-12-30 13:10 | disposition home or self-care (01) ==
LOC: M.ERS 11:59
DX: R06.00 Dyspnea, unspecified (principal); J44.9 Chronic obstructive pulmonary disease, unspecified; I48.91 Unspecified atrial fibrillation; E11.9 Type 2 diabetes mellitus without complications; E11.22 Type 2 diabetes mellitus with diabetic chronic kidney disease; N18.3 Chronic kidney disease, stage 3 (moderate); I50.9 Heart failure, unspecified; Z79.4 Long term (current) use of insulin; Z88.1 Allergy status to other antibiotic agents; Z86.73 Personal history of transient ischemic attack (TIA), and cerebral infarction without residual deficits

== ENCOUNTER 2018-01-02 11:55 | Inpatient (IN) | payer MEDICARE, MEDICAID ==
[~2018-01-02] VITALS: Ht 167.6 cm; Wt 173.7 kg
[~2018-01-02 11:55] MED LIST changes: +PRADAXA150 MG PO
[2018-01-02 12:05] VITALS: BP 146/77
[2018-01-02] MEDS ORDERED: PROPAFENONE 15150 MG PO (12:08)
[2018-01-02] MEDS ORDERED: AZITHROMYCIN 2250 MG PO (12:09)
[2018-01-02] MEDS ORDERED: VOLTAREN GEL 1100 G2 TOP (12:09)
[2018-01-02 12:32] LABS: ABSOLUTE EOSINOPHILS 0.5 thou/uL (0.0-0.7); ABSOLUTE LYMPHOCYTES 1.2 thou/uL (0.8-5.3); ABSOLUTE MONOCYTES 0.7 thou/uL (0.0-1.2); ABSOLUTE NEUTROPHILS 6.1 thou/uL (1.6-8.1); BASOPHILS 0.6 %; EOSINOPHILS 5.6 %; HEMATOCRIT 40.1 % (37.0-47.0); HEMOGLOBIN 13.1 gm/dL (12.0-15.0); LYMPHOCYTES 14.6 %; MCH 30.6 pg (26.0-34.0); MCHC 32.7 g/dL (28.0-37.0); MCV 93.5 fL (80.0-100.0); MONOCYTES 7.7 %; NUCLEATED RBCS 0 /100WBC; PLATELET COUNT* 215 thou/uL (150-400); POLYS 71.5 %; RDW-CV 15.5 % (10.5-14.5); WBC 8.6 thou/uL (4.0-11.0)
[2018-01-02 12:54] LABS: CALCIUM 8.6 mg/dL (8.5-10.1); CREATININE 1.1 mg/dL (0.6-1.3); POTASSIUM 3.5 mmol/L (3.5-5.1)
[2018-01-02 12:59] LABS: ALBUMIN 2.8 g/dL (3.4-5.0); TOTAL BILIRUBIN 0.4 mg/dL (<0.1-1.0); TOTAL PROTEIN 7.6 g/dL (6.4-8.2)
[2018-01-02 13:30] LABS: URINE BILIRUBIN NEGATIVE (Negative); URINE BLOOD 1+ (Negative); URINE CLARITY CLEAR; URINE COLOR YELLOW; URINE GLUCOSE-RANDOM NEGATIVE (Negative); URINE KETONES NEGATIVE (Negative); URINE PROTEIN 2+ (Negative); URINE SPECIFIC GRAVITY 1.025 (1.005-1.030); URINE UROBILINOGEN 0.2 E.U./dl (0.2-1.0)
[2018-01-02 13:31] LABS: URINE LEUKOCYTES-REFLEX 2+ (Negative); URINE NITRITE-REFLEX POSITIVE (Negative)
[2018-01-02 14:20] LABS: BACTERIA-REFLEX >30 Many /HPF (None Seen); CASTS None Seen /LPF (None Seen); CRYSTALS None Seen /LPF (None Seen); SQUAMOUS >10 Many /LPF (0-3); URINE RBC 3-10 Few /HPF (0-2); URINE WBC-REFLEX >25 Many /HPF (0-5)
[2018-01-02 15:21] VITALS: BP 169/100
[2018-01-02 15:35] VITALS: BP 168/91
[2018-01-02 23:36] VITALS: BP 153/77
[2018-01-03 04:19] LABS: HEMATOCRIT 37.2 % (37.0-47.0); HEMOGLOBIN 12.2 gm/dL (12.0-15.0); MCH 30.5 pg (26.0-34.0); MCHC 32.8 g/dL (28.0-37.0); MCV 93.2 fL (80.0-100.0); MPV 10.1 fl. (7.2-11.1); RBC 3.99 mil/uL (4.20-5.00); RDW-CV 15.3 % (10.5-14.5); WBC 5.4 thou/uL (4.0-11.0)
[2018-01-03 05:16] LABS: CALCIUM 8.6 mg/dL (8.5-10.1); MAGNESIUM 1.7 mg/dL (1.8-2.4); POTASSIUM 4.4 mmol/L (3.5-5.1)
[2018-01-03 09:05] VITALS: BP 156/89
[2018-01-03 14:00] VITALS: BP 155/79
[2018-01-03] MEDS ORDERED: RESTASIS1 EACH OPHTHALMIC (22:28)
[2018-01-03] MEDS ORDERED: ROBAXIN 750 MG750 M1 PO (22:28)
[2018-01-03 23:29] VITALS: BP 164/80
[2018-01-04 04:27] LABS: HEMATOCRIT 35.4 % (37.0-47.0); HEMOGLOBIN 11.6 gm/dL (12.0-15.0); MCH 30.5 pg (26.0-34.0); MCHC 32.8 g/dL (28.0-37.0); MCV 92.7 fL (80.0-100.0); MPV 10.2 fl. (7.2-11.1); RBC 3.82 mil/uL (4.20-5.00); RDW-CV 14.6 % (10.5-14.5)
[2018-01-04 04:45] LABS: CALCIUM 8.6 mg/dL (8.5-10.1); CREATININE 0.9 mg/dL (0.6-1.3); MAGNESIUM 1.7 mg/dL (1.8-2.4); POTASSIUM 3.5 mmol/L (3.5-5.1)
[2018-01-04 08:25] VITALS: BP 167/98
--- NOTE | 2018-01-04 15:28 | EKG ---
[place] [address] ELECTROCARDIOGRAM REPORT Name: HEATHER DIEHL Room: [address] ADM IN [facility]#: [id number] Admission: 01/02/18 Attend Phys: Robert Caputo MD Discharge: Date of : 53 Report #: [id number] THIS REPORT FOR: //name// [facility] Test Date: 2018-01-04 Test Time: 08:35:30 Pat Name: HEATHER DIEHL Department: Room: [address] Gender: Banquet Steward: INDIRA DUVAL : 1955 Requested By: Robert Caputo Order Number: [id number] Reading MD: Rene Robles Measurements Intervals [place] Rate: 134 P: 172 SD: 96 QRS: -14 QRSD: 78 T: -82 QT: 241 QTc: 360 Interpretive Statements ectopic atrial tachycardia Abnormal T, consider ischemia, inferior leads Compared to ECG 12/30/2017 12:16:27 atrial tachycardia seen T-wave abnormality still present Electronically Signed On 01-04-2018 15:28:22 CDT by Rene Robles [email or web address] <ELECTRONICALLY SIGNED> By: Rene Robles MD, [facility] 01/04/18 1528 0835 0835 Rene Robles MD, [facility] /EPI
[2018-01-04 16:17] VITALS: BP 173/96
[2018-01-04 19:00] VITALS: BP 156/91
[2018-01-04 19:53] VITALS: BP 147/77
[2018-01-04 21:18] VITALS: BP 143/77
[2018-01-04 22:45] VITALS: BP 115/66
[2018-01-05] VITALS (7 sets, daily range): BP systolic 116–158; BP diastolic 53–98
[2018-01-05 05:33] LABS: CALCIUM 8.3 mg/dL (8.5-10.1); CREATININE 0.9 mg/dL (0.6-1.3); MAGNESIUM 1.8 mg/dL (1.8-2.4); POTASSIUM 3.5 mmol/L (3.5-5.1)
[2018-01-06] VITALS: BP 150/70
[2018-01-06 04:33] VITALS: BP 160/65
[2018-01-06 05:10] LABS: HEMATOCRIT 39.7 % (37.0-47.0); HEMOGLOBIN 13.2 gm/dL (12.0-15.0); MCH 30.5 pg (26.0-34.0); MCHC 33.1 g/dL (28.0-37.0); MPV 10.1 fl. (7.2-11.1); RBC 4.32 mil/uL (4.20-5.00); RDW-CV 14.6 % (10.5-14.5)
[2018-01-06 05:12] LABS: CALCIUM 8.7 mg/dL (8.5-10.1); CREATININE 0.8 mg/dL (0.6-1.3); MAGNESIUM 1.7 mg/dL (1.8-2.4)
[2018-01-06 09:30] VITALS: BP 131/44
--- NOTE | 2018-01-06 10:13 | EKG ---
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: : 1955 Requested By: Rene Robles Order Number: [id number] Reading MD: Rene Robles Measurements Intervals [place] Rate: 128 P: [place]: QRS: -46 QRSD: 92 T: -81 QT: 403 QTc: 588 Interpretive Statements Atrial flutter/fibrillation Left axis deviation Abnormal R-wave progression, late transition Borderline repol abnormality, diffuse leads Prolonged QT interval Compared to ECG 01/04/2018 08:35:30 no change Electronically Signed On 01-06-2018 10:13:45 CDT by Rene Robles [email or web address] <ELECTRONICALLY SIGNED> By: Rene Robles MD, [facility] 01/06/18 1013 0834 0834 Rene Robles MD, [facility] /EPI
[2018-01-06 11:33] VITALS: BP 143/67
[2018-01-06 15:40] VITALS: BP 132/84
[2018-01-06 20:00] VITALS: BP 157/70
[2018-01-07] VITALS (9 sets, daily range): BP systolic 119–175; BP diastolic 62–94
[2018-01-07 05:07] LABS: CALCIUM 8.4 mg/dL (8.5-10.1); CREATININE 0.8 mg/dL (0.6-1.3); MAGNESIUM 1.7 mg/dL (1.8-2.4)
[2018-01-07 05:31] LABS: POTASSIUM 2.9 mmol/L (3.5-5.1)
[2018-01-07] MEDS ORDERED: AUGMENTIN 875-1 EACH PO (10:31)
[2018-01-07] MEDS ORDERED: FLUCONAZOLE 10100 MG PO (10:31)
[2018-01-07] MEDS ORDERED: AZITHROMYCIN 2250 MG PO (10:31)
[2018-01-07] MEDS ORDERED: ACIDOPHILUS1 EAC4 PO (10:31)
[2018-01-07] MEDS ORDERED: PREDNISONE 10 M10 MG PO (10:31)
--- NOTE | 2018-01-07 16:29 | EKG ---
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: : 1955 Requested By: Robert Caputo Order Number: [id number] Reading MD: Yahir Wylie Measurements Intervals [place] Rate: 128 P: [place]: QRS: -35 QRSD: 96 T: -87 QT: 377 QTc: 550 Interpretive Statements Atrial flutter with 2:1 AV block Left axis deviation Possible ischemia Prolonged QT interval Compared to ECG 01/06/2018 08:34:45 2:1 AV block now present Possible ischemia now present Electronically Signed On 01-07-2018 16:29:32 CDT by Yahir Wylie [email or web address] <ELECTRONICALLY SIGNED> By: Yahir Wylie MD, [facility] 01/07/18 1629 0814 Yahir Wylie MD, [facility] /EPI
[2018-01-07 18:41] LABS: MAGNESIUM 1.7 mg/dL (1.8-2.4); POTASSIUM 4.8 mmol/L (3.5-5.1)
[2018-01-08] VITALS: BP 148/62
[2018-01-08 04:39] VITALS: BP 142/58
[2018-01-08 08:00] VITALS: BP 155/61
[2018-01-08 09:11] VITALS: BP 153/75
[2018-01-08 10:39] VITALS: BP 153/75
[2018-01-08] MEDS ORDERED: PACERONE 200 M200 M1 PO (10:55)
[2018-01-08] MEDS ORDERED: DIGOXIN250 MCG PO (11:00)
[2018-01-08] MEDS ORDERED: CARDIZEM CD240 MG PO (11:02)
[2018-01-08 11:11] VITALS: BP 153/75
--- NOTE | 2018-01-09 17:06 | EKG ---
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: : 1955 Requested By: Maricel Case Order Number: [id number] Reading MD: Enrique Rodrigues Measurements Intervals [place] Rate: 71 P: 32 [place]: 194 QRS: 11 QRSD: 101 T: 81 QT: 411 QTc: 447 Interpretive Statements Sinus rhythm Borderline T abnormalities, lateral leads Compared to ECG 01/07/2018 08:14:31 T-wave abnormality now present Atrial flutter no longer present 2:1 AV block no longer present Left-axis deviation no longer present Possible ischemia no longer present Prolonged QT interval no longer present Electronically Signed On 01-09-2018 17:05:48 CDT by Enrique Rodrigues [email or web address] <ELECTRONICALLY SIGNED> By: Enrique Rodrigues MD, [facility] 01/09/18 1705 1033 1033 Enrique Rodrigues MD, [facility] /EPI
--- NOTE | 2018-01-10 11:31 | PROC ---
[address] [address] PROCEDURE REPORT Name: HEATHER DIEHL Room: [address]#: [id number] Admission: 01/02/18 Attend Phys: Robert Caputo MD Discharge: 01/08/18 Date of : 53 Report #: [id number] THIS REPORT FOR: //name// CC: Rene Caputo DATE OF SERVICE: 01/08/2018 PROCEDURE: DC cardioversion. TECHNIQUE: The patient received sedation with total of 3 mg of Versed and 50 mcg of fentanyl. Appropriate sedation was achieved with patches applied in the AP location and with synchronization undertaken, we proceeded with DC cardioversion x 1 with 200 watt seconds, through a rhythm reverting from atrial flutter with 2:1 atrioventricular conduction block to sinus rhythm at a rate of 85. That persisted. The sedation gradually wore off and she returned to her normal state of consciousness. She remained in sinus rhythm at a moderate rate as noted above. IMPRESSION: Successful DC cardioversion with rhythm reverting from atrial flutter with 2:1 atrioventricular conduction block to sinus rhythm and a normal rate. <ELECTRONICALLY SIGNED> By: Yahir Wylie MD, [facility] 01/10/18 1131 1736 0240Joeunice Wylie MD, FACC /nt
[2018-02-03] MEDS ORDERED: DULCOLAX10 MG RECTAL (13:00)
[2018-02-03] MEDS ORDERED: LOPRESSOR25 PO (13:00)
[2018-02-03] MEDS ORDERED: TYLENOL325 MG PO (13:01)
[2018-02-03] MEDS ORDERED: MILK OF MA400 MG/5 M PO (13:01)
[2018-02-03] MEDS ORDERED: PERCOCET PO (13:02)
[2018-02-03] MEDS ORDERED: NORCO 5-325 TA1 EACH PO (13:02)
[2018-02-03] MEDS ORDERED: VITAMINC500 PO (13:03)
[2018-02-03] MEDS ORDERED: UNICOMPLEX M TA1 TA1 PO (13:03)
[2018-02-03] MEDS ORDERED: NYAMYC15 GM TOP (13:04)
== END 2018-01-08 11:45 | disposition home or self-care (01) | DRG 189 ==
LOC: M.ERS 11:55 → M.2W 13:47 → M.TBA-ER 13:47 → M.3W 15:39 → M.2W 01-04 12:44
PROVIDERS: Emergency Medicine Emergency Medical Services; ADMIT Internal Medicine
PROC: 5A2204Z Restoration of Cardiac Rhythm, Single (ICD-10-PCS; principal; 2018-01-08)
DX: J96.01 Acute respiratory failure with hypoxia (principal); J44.0 Chronic obstructive pulmonary disease with (acute) lower respiratory infection; J44.1 Chronic obstructive pulmonary disease with (acute) exacerbation; I50.32 Chronic diastolic (congestive) heart failure; N39.0 Urinary tract infection, site not specified; Z68.44 Body mass index [BMI] 60.0-69.9, adult; I13.0 Hypertensive heart and chronic kidney disease with heart failure and stage 1 through stage 4 chronic kidney disease, or unspecified chronic kidney disease; I48.92 Unspecified atrial flutter; I47.1 Supraventricular tachycardia; I48.2 Chronic atrial fibrillation; J20.9 Acute bronchitis, unspecified; N18.3 Chronic kidney disease, stage 3 (moderate); E11.22 Type 2 diabetes mellitus with diabetic chronic kidney disease; E66.01 Morbid (severe) obesity due to excess calories; G47.33 Obstructive sleep apnea (adult) (pediatric); Z86.73 Personal history of transient ischemic attack (TIA), and cerebral infarction without residual deficits; Z88.2 Allergy status to sulfonamides; Z88.8 Allergy status to other drugs, medicaments and biological substances; Z82.49 Family history of ischemic heart disease and other diseases of the circulatory system

== ENCOUNTER 2018-01-10 17:49 | Inpatient (IN) | payer MEDICARE, MEDICAID ==
[~2018-01-10] VITALS: Ht 157.5 cm; Wt 166.7 kg
[~2018-01-10 17:49] MED LIST changes: +ACIDOPHILUS1 EAC4 PO; +AUGMENTIN 875-1 EACH PO; +AZITHROMYCIN 2250 MG PO; +CARDIZEM CD240 MG PO; +DIGOXIN250 MCG PO; +PACERONE 200 M200 M1 PO; +PROPAFENONE 15150 MG PO; +VOLTAREN GEL 1100 G2 TOP
[2018-01-10 17:55] VITALS: BP 123/60
[2018-01-10 18:36] LABS: HEMATOCRIT 39.4 % (37.0-47.0); HEMOGLOBIN 12.8 gm/dL (12.0-15.0); MCH 30.6 pg (26.0-34.0); MCHC 32.4 g/dL (28.0-37.0); MCV 94.5 fL (80.0-100.0); MPV 10.7 fl. (7.2-11.1); NUCLEATED RBCS 0 /100WBC; PLATELET COUNT* 188 thou/uL (150-400); RBC 4.17 mil/uL (4.20-5.00); RDW-CV 15.3 % (10.5-14.5); WBC 10.9 thou/uL (4.0-11.0)
[2018-01-10 18:44] LABS: CALCIUM 8.7 mg/dL (8.5-10.1); CREATININE 1.6 mg/dL (0.6-1.3); POTASSIUM 5.7 mmol/L (3.5-5.1)
[2018-01-10 18:49] LABS: TOTAL BILIRUBIN 0.3 mg/dL (<0.1-1.0); TOTAL PROTEIN 7.2 g/dL (6.4-8.2)
[2018-01-10 18:58] LABS: ABSOLUTE LYMPHOCYTES 0.8 thou/uL (0.8-5.3); ABSOLUTE MONOCYTES 0.3 thou/uL (0.0-1.2); ABSOLUTE NEUTROPHILS 9.8 thou/uL (1.6-8.1); PLATELET ESTIMATE ADEQUATE
[2018-01-10 22:18] VITALS: BP 159/67
[2018-01-10 23:00] VITALS: BP 156/56
[2018-01-11] VITALS (12 sets, daily range): BP systolic 121–155; BP diastolic 36–97
[2018-01-11 03:42] LABS: ABSOLUTE EOSINOPHILS 0.1 thou/uL (0.0-0.7); ABSOLUTE LYMPHOCYTES 1.6 thou/uL (0.8-5.3); ABSOLUTE NEUTROPHILS 6.6 thou/uL (1.6-8.1); BASOPHILS 0.5 %; EOSINOPHILS 0.7 %; HEMATOCRIT 42.8 % (37.0-47.0); HEMOGLOBIN 13.7 gm/dL (12.0-15.0); LYMPHOCYTES 17.2 %; MCH 30.6 pg (26.0-34.0); MCHC 31.9 g/dL (28.0-37.0); MCV 95.7 fL (80.0-100.0); MONOCYTES 10.5 %; MPV 11.1 fl. (7.2-11.1); NUCLEATED RBCS 0 /100WBC; PLATELET COUNT* 146 thou/uL (150-400); POLYS 71.1 %; RBC 4.47 mil/uL (4.20-5.00); RDW-CV 15.6 % (10.5-14.5); WBC 9.3 thou/uL (4.0-11.0)
[2018-01-11 03:48] LABS: ALBUMIN 2.8 g/dL (3.4-5.0); CALCIUM 8.5 mg/dL (8.5-10.1); CREATININE 1.5 mg/dL (0.6-1.3); POTASSIUM 4.9 mmol/L (3.5-5.1); TOTAL BILIRUBIN 0.3 mg/dL (<0.1-1.0); TOTAL PROTEIN 7.3 g/dL (6.4-8.2)
--- NOTE | 2018-01-11 15:56 | EKG ---
[place] [address] ELECTROCARDIOGRAM REPORT Name: SHANITAHEATHER KWOK Room: [address] IN [facility]#: [id number] Admission: 01/10/18 Attend Phys: Raul Allen, Discharge: Date of : 53 Report #: [id number] THIS REPORT FOR: //name// [facility] ED Test Date: 2018-01-10 Test Time: 18:00:15 Pat Name: HEATHER DIEHL Department: Room: Gender: Trap Operator: Abril RUBIO : 1955 Requested By: Clary Morin Order Number: [id number] MD: Jeronimo Verma Measurements Intervals [place] Rate: 64 P: 0 [place]: 188 QRS: -6 QRSD: 105 T: 74 QT: 420 QTc: 434 Interpretive Statements Sinus rhythm Probable left atrial enlargement Nonspecific ST segment depression Compared to ECG 01/08/2018 10:33:47 T-wave abnormality no longer present Electronically Signed On 01-11-2018 15:55:54 CDT by Jeronimo Verma [email or web address] <ELECTRONICALLY SIGNED> By: Jeronimo Verma MD, FACC 01/11/18 1555 1800 1800 Jeronimo Verma MD, FAC /EPI
[2018-01-12 00:22] VITALS: BP 165/69
[2018-01-12 04:12] VITALS: BP 156/64
[2018-01-12 12:07] VITALS: BP 165/48
[2018-01-12 14:20] LABS: CALCIUM 8.7 mg/dL (8.5-10.1); POTASSIUM 4.4 mmol/L (3.5-5.1)
[2018-01-12 15:38] VITALS: BP 158/45
[2018-01-12 20:00] VITALS: BP 151/49
[2018-01-13 00:10] VITALS: BP 162/48
[2018-01-13 04:00] VITALS: BP 147/62
[2018-01-13 05:34] LABS: CALCIUM 8.8 mg/dL (8.5-10.1); CREATININE 0.9 mg/dL (0.6-1.3); POTASSIUM 4.9 mmol/L (3.5-5.1)
[2018-01-13 07:30] VITALS: BP 174/64
[2018-01-13 09:05] VITALS: BP 174/64
[2018-01-13 11:37] VITALS: BP 153/55
[2018-01-13] MEDS ORDERED: HYDROCHLOROTH12.5 M1 PO (14:01)
[2018-01-13] MEDS ORDERED: LISINOPRIL10 MG PO (14:39)
--- NOTE | 2018-01-13 17:14 | CON ---
[address] [address] CONSULTATION Name: HEATHER DIEHL Room: [address] IN .R.#: [id number] Admission: 01/10/18 Attend Phys: Raul Allen, Discharge: Date of : 53 Report #: [id number] THIS REPORT FOR: //name// CC: Rene Allen TYPE OF REPORT: Cardiology consultation. INDICATION: Cardiac evaluation. HISTORY OF PRESENT ILLNESS: The patient is a 62-year-old morbidly obese white female who has a history of paroxysmal atrial fibrillation, diabetes, hypertension and morbid obesity. She was admitted to the hospital after fracturing her right fibula. At outside hospital, the patient was noted to be mildly hyperkalemic with some bradycardia. She is in sinus rhythm. Here at [place], she was noted to have a mildly elevated digoxin level and was given Digibind. She is also on amiodarone, metoprolol and diltiazem for both rate and rhythm control. She is anticoagulated with Pradaxa and having no bleeding problems. Presently, she is without cardiac complaint. She is not having any significant chest pain. She is not having palpitations. She does have underlying COPD. PAST MEDICAL HISTORY: 1. Paroxysmal atrial fibrillation. 2. Type 2 diabetes mellitus. 3. Hypertension. 4. COPD. 5. Morbid obesity. 6. History of cholecystectomy. FAMILY HISTORY: Noncontributory. SOCIAL HISTORY: The patient has a remote history of smoking and at that time only for a year. She does not drink alcohol. PHYSICAL EXAMINATION: VITAL SIGNS: Stable. Blood pressure 138/36, pulse 64 and regular. GENERAL: Morbidly obese white female, in no distress. HEENT: The patient is wearing glasses. Extraocular muscles intact. NECK: Reveals a thick neck with no obvious jugular venous distention. CHEST: Reveals diffuse wheezes throughout. CARDIAC: Reveals a regular rhythm with normal S1 and S2. I do not appreciate gallop [place] [address] CONSULTATION Name: HEATHER DIEHL Room: [address] IN [facility]#: [id number] Admission: 01/10/18 Attend Phys: Raul Allen, Discharge: Date of : 53 Report #: [id number] ABDOMEN: Reveals a protuberant abdomen, soft and nontender. EXTREMITIES: The right lower extremity to be splinted and wrapped. There is moderate edema of the left lower extremity. There are chronic skin changes noted. SKIN: Dry. LABORATORY DATA: Current labs are evaluated. Sodium 136, potassium 4.9, chloride 103, bicarbonate 26, BUN 28, creatinine 1.5 and serum glucose 136. Troponin less than 0.06. White blood cell count 9.3; hemoglobin 13.7 and platelet count 146,000. RADIOLOGICAL DATA: Chest x-ray shows bilateral scarring and mild cardiomegaly with decreasing congestion. IMPRESSION AND RECOMMENDATIONS: 1. Paroxysmal atrial fibrillation. The patient presently maintaining sinus rhythm on amiodarone. We would continue amiodarone at above recommended dose. She is anticoagulated with Pradaxa and having no bleeding problems. 2. Recent ankle fracture. Per the family, the orthopedic physicians did not feel that surgery was going to be needed as there is fair alignment of the fracture. We will follow. 3. Hypertension, presently stable. 4. Acute renal failure. The patient is being gently hydrated. Repeat labs in a.m. 5. Chronic obstructive pulmonary disease. Continue breathing treatments. 6. Morbid obesity. The patient has been counseled on considering weight loss. <ELECTRONICALLY SIGNED> By: Jeronimo Verma MD, FACC 01/13/18 1714 1448 2248Micmick Verma MD, FACC /nt
[2018-01-13 20:00] VITALS: BP 167/61
[2018-01-14] VITALS: BP 161/54
[2018-01-14 04:00] VITALS: BP 172/63
[2018-01-14 04:05] VITALS: BP 146/56
[2018-01-14 08:00] VITALS: BP 178/67
[2018-01-14 12:39] VITALS: BP 140/88
[2018-01-14] MEDS ORDERED: PREDNISONE 10 M10 MG PO (14:56)
[2018-01-14] MEDS ORDERED: ZITHROMAX250 MG NG (14:58)
[2018-02-03] MEDS ORDERED: DULCOLAX10 MG RECTAL (13:00)
[2018-02-03] MEDS ORDERED: LOPRESSOR25 PO (13:00)
[2018-02-03] MEDS ORDERED: TYLENOL325 MG PO (13:01)
[2018-02-03] MEDS ORDERED: MILK OF MA400 MG/5 M PO (13:01)
[2018-02-03] MEDS ORDERED: NORCO 5-325 TA1 EACH PO (13:02)
[2018-02-03] MEDS ORDERED: PERCOCET PO (13:02)
[2018-02-03] MEDS ORDERED: VITAMINC500 PO (13:03)
[2018-02-03] MEDS ORDERED: UNICOMPLEX M TA1 TA1 PO (13:03)
[2018-02-03] MEDS ORDERED: NYAMYC15 GM TOP (13:04)
== END 2018-01-14 15:15 | DRG 562 ==
LOC: M.ERS 17:49 → M.ICU 20:45 → M.2W 20:45 → M.TBA-ER 20:45 → M.ICU 22:37 → M.2W 01-11 19:00
PROVIDERS: Internal Medicine; Internal Medicine Cardiovascular Disease; Personal Emergency Response Attendant; ADMIT Family Medicine
PROC: 2W0 Placement, Anatomical Regions, Change (ICD-10-PCS; principal; 2018-01-11)
DX: S82.831A Other fracture of upper and lower end of right fibula, initial encounter for closed fracture (principal); N17.0 Acute kidney failure with tubular necrosis; I48.92 Unspecified atrial flutter; I50.32 Chronic diastolic (congestive) heart failure; I13.0 Hypertensive heart and chronic kidney disease with heart failure and stage 1 through stage 4 chronic kidney disease, or unspecified chronic kidney disease; E66.2 Morbid (severe) obesity with alveolar hypoventilation; Z68.44 Body mass index [BMI] 60.0-69.9, adult; J44.1 Chronic obstructive pulmonary disease with (acute) exacerbation; R00.1 Bradycardia, unspecified; J44.9 Chronic obstructive pulmonary disease, unspecified; I48.91 Unspecified atrial fibrillation; N18.3 Chronic kidney disease, stage 3 (moderate); E11.22 Type 2 diabetes mellitus with diabetic chronic kidney disease; E87.5 Hyperkalemia; I48.0 Paroxysmal atrial fibrillation; M19.90 Unspecified osteoarthritis, unspecified site; T46.0X5A Adverse effect of cardiac-stimulant glycosides and drugs of similar action, initial encounter; W18.39XA Other fall on same level, initial encounter; Y92.89 Other specified places as the place of occurrence of the external cause; Z91.14 Patient's other noncompliance with medication regimen; Z86.73 Personal history of transient ischemic attack (TIA), and cerebral infarction without residual deficits; Z79.899 Other long term (current) drug therapy; Z79.4 Long term (current) use of insulin; Z88.2 Allergy status to sulfonamides; Z88.8 Allergy status to other drugs, medicaments and biological substances; Z90.49 Acquired absence of other specified parts of digestive tract; Z87.891 Personal history of nicotine dependence; Y93.89 Activity, other specified; Y99.8 Other external cause status

== ENCOUNTER → 2018-01-19 | Outpatient (CLI) | payer MEDICARE, MEDICAID ==
[~2018-01-19] MED LIST changes: +DULCOLAX10 MG RECTAL; +FLAGYL500 MG PO; +HYDROCHLOROTH12.5 M1 PO; +LISINOPRIL10 MG PO; +MILK OF MA400 MG/5 M PO; +MYSOLINE50 MG PO; +NORCO 5-325 TA1 EACH PO; +NORVASC2.5 MG; +NYAMYC15 GM TOP; +PERCOCET PO; +TYLENOL325 MG PO; +UNICOMPLEX M TA1 TA1 PO; +VANCOCIN 125 M125 M1 PO; +VITAMINC500 PO; +ZITHROMAX250 MG NG
== END ==
LOC: M.WC 08:00
DX: E11.622 Type 2 diabetes mellitus with other skin ulcer (principal); L89.322 Pressure ulcer of left buttock, stage 2; I48.2 Chronic atrial fibrillation; I10 Essential (primary) hypertension; E66.01 Morbid (severe) obesity due to excess calories; M06.9 Rheumatoid arthritis, unspecified; G47.33 Obstructive sleep apnea (adult) (pediatric); J44.9 Chronic obstructive pulmonary disease, unspecified; Z90.710 Acquired absence of both cervix and uterus; Z68.43 Body mass index [BMI] 50.0-59.9, adult; Z87.891 Personal history of nicotine dependence

== ENCOUNTER → 2018-01-26 | Outpatient (CLI) | payer MEDICARE, MEDICAID | LOC: M.WC 06:28 | DX: E11.622 Type 2 diabetes mellitus with other skin ulcer (principal); L89.322 Pressure ulcer of left buttock, stage 2; L98.411 Non-pressure chronic ulcer of buttock limited to breakdown of skin; I10 Essential (primary) hypertension; I48.2 Chronic atrial fibrillation; E66.01 Morbid (severe) obesity due to excess calories; M06.9 Rheumatoid arthritis, unspecified; G47.33 Obstructive sleep apnea (adult) (pediatric); J44.9 Chronic obstructive pulmonary disease, unspecified; Z87.891 Personal history of nicotine dependence; Z68.43 Body mass index [BMI] 50.0-59.9, adult; Z90.710 Acquired absence of both cervix and uterus ==

== ENCOUNTER → 2018-02-02 | Outpatient (CLI) | payer MEDICARE, MEDICAID | LOC: M.WC 01:07 | DX: E11.622 Type 2 diabetes mellitus with other skin ulcer (principal); L89.322 Pressure ulcer of left buttock, stage 2; L98.411 Non-pressure chronic ulcer of buttock limited to breakdown of skin; E66.01 Morbid (severe) obesity due to excess calories; I48.2 Chronic atrial fibrillation; J44.9 Chronic obstructive pulmonary disease, unspecified; I10 Essential (primary) hypertension; M06.9 Rheumatoid arthritis, unspecified; G47.33 Obstructive sleep apnea (adult) (pediatric); Z87.891 Personal history of nicotine dependence; Z90.710 Acquired absence of both cervix and uterus; Z68.43 Body mass index [BMI] 50.0-59.9, adult ==

== ENCOUNTER 2018-02-05 06:30 | Inpatient (IN) | payer MEDICARE, MEDICAID ==
[~2018-02-05] VITALS: Ht 167.6 cm; Wt 160.6 kg
[~2018-02-05 06:30] MED LIST changes: -FLAGYL500 MG PO; -MYSOLINE50 MG PO; -NORVASC2.5 MG; -VANCOCIN 125 M125 M1 PO
[2018-02-05 07:17] LABS: ABSOLUTE EOSINOPHILS 0.3 thou/uL (0.0-0.7); ABSOLUTE MONOCYTES 0.3 thou/uL (0.0-1.2); ABSOLUTE NEUTROPHILS 1.9 thou/uL (1.6-8.1); BASOPHILS 0.9 %; EOSINOPHILS 8.4 %; HEMATOCRIT 40.9 % (37.0-47.0); HEMOGLOBIN 13.4 gm/dL (12.0-15.0); LYMPHOCYTES 28.2 %; MCH 30.3 pg (26.0-34.0); MCHC 32.7 g/dL (28.0-37.0); MCV 92.6 fL (80.0-100.0); MONOCYTES 8.7 %; MPV 11.3 fl. (7.2-11.1); NUCLEATED RBCS 0 /100WBC; PLATELET COUNT* 115 thou/uL (150-400); POLYS 53.8 %; RBC 4.41 mil/uL (4.20-5.00); RDW-CV 14.3 % (10.5-14.5); WBC 3.5 thou/uL (4.0-11.0)
[2018-02-05 07:26] LABS: ALBUMIN 2.8 g/dL (3.4-5.0); CALCIUM 8.7 mg/dL (8.5-10.1); POTASSIUM 4.2 mmol/L (3.5-5.1); TOTAL BILIRUBIN 0.3 mg/dL (<0.1-1.0); TOTAL PROTEIN 6.4 g/dL (6.4-8.2)
[2018-02-05 07:32] VITALS: BP 143/77
[2018-02-05 08:39] LABS: URINE BILIRUBIN NEGATIVE (Negative); URINE BLOOD TRACE (Negative); URINE CLARITY CLEAR; URINE COLOR YELLOW; URINE GLUCOSE-RANDOM NEGATIVE (Negative); URINE KETONES NEGATIVE (Negative); URINE PROTEIN NEGATIVE (Negative); URINE SPECIFIC GRAVITY <= 1.005 (1.005-1.030); URINE UROBILINOGEN 0.2 E.U./dl (0.2-1.0)
[2018-02-05 08:42] LABS: URINE LEUKOCYTES-REFLEX 3+ (Negative); URINE NITRITE-REFLEX POSITIVE (Negative)
[2018-02-05 08:52] LABS: SQUAMOUS 0-3 Few /LPF (0-3); URINE RBC 0-2 Rare /HPF (0-2)
[2018-02-05 08:53] LABS: BACTERIA-REFLEX 1-9 Few /HPF (None Seen)
[2018-02-05 08:54] LABS: CASTS None Seen /LPF (None Seen); CRYSTALS None Seen /LPF (None Seen); MUCUS None Seen strn/LPF (None Seen)
[2018-02-05 18:00] VITALS: BP 149/73
--- NOTE | 2018-02-05 18:22 | NUR ---
PATIENT CAME FROM THE OR VIA BED IN STABLE CONDITION, ON TWO LITERS OF OXYGEN THROUGH NASAL CANNULA WITH A CAPNO. IV FLUIDS RUNNING IN RIGHT HAND. ADMISSION ASSESSMENT AND ROOM ORIENTATION DONE. QUESTIONS ANSWERED FOR PATIENT. CALL LIGHT IS IN REACH, WILL CONTINUE TO MONITOR.
[2018-02-05 20:30] VITALS: BP 149/85
[2018-02-06 00:45] VITALS: BP 125/42
[2018-02-06 04:00] VITALS: BP 138/58
--- NOTE | 2018-02-06 06:49 | NUR ---
PATIENT ALERT AND ORIENTED X 4. VITALS STABLE. ON 2L OF OXYGEN. RLE DRESSING C/D/I. HAM TO DEPENDENT DRAINAGE. CONTINUED CONTACT ISOLATION DUE TO ESBL IN THE URINE. PHYSICIAN CONTACTED PER PATIENT REQUEST DUE TO POOR PAIN CONTROL. ORDER RECEIVEDS. REPOSITONED FOR COMFORT. PATIENT UNHAPPY WITH PAIN MEDICATION ORDERS. PATIENT DOES FALL ASLEEP AFTER TAKING ONE HYDROCODONE AND SEEMED COMFORTABLE DURING THE NIGHT. HOURLY ROUNDS. BED ALARM IN USE. NURSING WILL CONTINUE TO MONITOR.
[2018-02-06 09:30] VITALS: BP 133/88
--- NOTE | 2018-02-06 15:04 | NUR ---
CM SPOKE TO THE PATIENT TO DISCUSS HOME SITUATION, DISCHARGE PLANNING, AND TO INFORM OF THE ROLE OF CM. PATIENT ALERT AND ORIENTED. PATIENT RESIDES AT HOME WITH SPOUSE AND GRANDDAUGHTER. PATIENT RECENTLY DISCHARGED FROM [facility] TO HAVE SURGERY FOR RT ANKLE FX. PATIENT USES AN ALECTRIC W/C FOR MOBILITY. PATIENT INFORMS THAT SHE RECENTLY PURCHASED A SLIDE BOARD AND GRAB BARS. PATIENT HAS NO HX OF HH. PATIENT INFORMS THAT SHE WILL NOT RETURN TO [facility] AT D/C, AND PLANS TO RETURN HOME. CM WILL REMAIN AVIALABLE TO ASSIST AND FOLLOW NEEDED.
[2018-02-06 15:53] VITALS: BP 158/69
--- NOTE | 2018-02-06 17:01 | NUR ---
PATIENT UP WITH PT TO CHAIR FOR APPROX 2 HOURS. RIGHT LEG REMAINS SPLINTED AND ELEVATED. PRN VICODIN GIVEN THIS AM FOR RIGHT ANKLE PAIN, DC'D AND CHANGED TO PERCOCET THIS EVENING FOR BETTER PAIN CONTROL. IV ZOSYN STARTED THIS EVENING FOR UTI, IVF TO BE SL. INSULIN GIVEN WITH MEALS WHEN REQUIRED. HAM DRAINING LARGE AMOUNTS OF YELLOW URINE.
[2018-02-07 00:20] VITALS: BP 160/58
--- NOTE | 2018-02-07 05:49 | NUR ---
ASSESSMENT COMPLETE. PT SLEPT PART OF THE NIGHT. PT REPORTS PAIN IN RIGHT FOOT, PRN PAIN MEDICATION GIVEN NEEDED. FOOT ELEVATED WITH PILLOWS. PT TURNED Q2 FOR SKIN INTEGRITY. PT GIVEN IV ZOSYN ORDERED. PT IS IN ISOLATION FOR ESBL. PT IS ON ROOM AIR WITH [place] SATS. HAM IN PLACE WITH [place] OUTPUT. PT HAS NEW IV IN LEFT HAND, SL. PT IS FALL RISK, BED ALARM ON. SEE ASSESSMENT AND VITALS FOR OTHER DETAILS. CALL LIGHT WITHIN REACH, WILL CONTINUE PLAN OF CARE
[2018-02-07 09:30] VITALS: BP 114/57
--- NOTE | 2018-02-07 15:15 | NUR ---
PATIENT SAT UP IN WHEELCHAIR APPROX 3 HOURS, UTILZING SLIDE BOARD. PRN TRAMADOL AND PERCOCET GIVEN FOR PAIN. NO INSULIN REWUIRED FOR BREAKFAST AND LUNCH. FATOUMATA LOMBARDI'D PER DR. SU.
[2018-02-07 16:57] VITALS: BP 103/46
--- NOTE | 2018-02-07 18:08 | NUR ---
TOK OVER CARE OF PATIENT AT 1500, AGREE WITH THE PREVIOUS NURSES ASSESSMENT FOR TODAY. SOME PAIN THAT IS PARTIALLY CONTROLLED WITH ORAL PAIN MEDICATIONS. VITAL SIGNS STABLE. CALL LIGHT IS IN REACH, WILL CONTINUE TO MONITOR.
[2018-02-07 23:59] VITALS: BP 111/52
[2018-02-08 04:18] LABS: ABSOLUTE EOSINOPHILS 0.3 thou/uL (0.0-0.7); ABSOLUTE LYMPHOCYTES 1.3 thou/uL (0.8-5.3); ABSOLUTE MONOCYTES 0.5 thou/uL (0.0-1.2); ABSOLUTE NEUTROPHILS 2.7 thou/uL (1.6-8.1); BASOPHILS 0.6 %; EOSINOPHILS 6.4 %; HEMATOCRIT 36.5 % (37.0-47.0); LYMPHOCYTES 26.5 %; MCH 30.8 pg (26.0-34.0); MCHC 32.9 g/dL (28.0-37.0); MCV 93.4 fL (80.0-100.0); MONOCYTES 9.5 %; MPV 11.6 fl. (7.2-11.1); NUCLEATED RBCS 0 /100WBC; PLATELET COUNT* 119 thou/uL (150-400); RBC 3.91 mil/uL (4.20-5.00); WBC 4.8 thou/uL (4.0-11.0)
[2018-02-08 05:04] LABS: ALBUMIN 2.4 g/dL (3.4-5.0); CALCIUM 8.5 mg/dL (8.5-10.1); POTASSIUM 3.8 mmol/L (3.5-5.1); TOTAL BILIRUBIN 0.3 mg/dL (<0.1-1.0); TOTAL PROTEIN 5.8 g/dL (6.4-8.2)
--- NOTE | 2018-02-08 06:02 | NUR ---
ASSESSMENT COMPLETE. PT SLEPT PART OF THE NIGHT. PRN PAIN MEDICATION GIVEN NEEDED. RIGHT FOOT IN SPLINT, ELEVATED ON PILLOW. PT GIVEN BENADRYL FOR ITCHING. IV ZOSYN GIVEN SCHEDULED. PT IS UP WITH CORDELIA. PT USES BEDPAN NEEDED. SEE ASSESSMENT AND VITALS FOR OTHER DETAILS. CALL LIGHT WITHIN REACH, WILL CONTINUE PLAN OF CARE
[2018-02-08 08:00] VITALS: BP 137/68
[2018-02-08 16:25] VITALS: BP 117/54
--- NOTE | 2018-02-08 16:53 | NUR ---
PATIENT RESTING IN BED. PATIENT WORKED WITH PHYSICAL THERAPY THIS AM AND WAS UP TO WHEELCHAIR. PATIENT ASSISTED BACK TO BED BY LIFT. PATIENT HAS COMPLAINTS OF PAIN TO RIGHT FOOT, TREATED ADEQUATELY WITH MEDICATION. PATIENT HAS GOOD APPETITE. PATIENT HOPING TO GO HOME SOON. PATIENT DENIES ANY NEEDS AT THIS TIME. CALL LIGHT WITHIN REACH. WILL CONTINUE TO MONITOR.
[2018-02-09 00:12] VITALS: BP 124/56
--- NOTE | 2018-02-09 06:03 | NUR ---
ASSESSMENT COMPLETE. PT SLEPT GOOD THROUGH THE NIGHT. PRN PAIN MEDICATION GIVEN TWICE NEEDED. PT HAS RIGHT FOOT ELEVATED WITH PILLOW. PT GIVEN IV ZOSYN SCHEDULED. URINE CULTURES STILL PENDING AT THIS TIME. PT IS IN ISOLATION. PT USES BEDPAN WHEN NEEDED. SPLINT TO RIGHT FOOT C/D/I. SEE ASSESSMENT AND VITALS FOR OTHER DETAILS. CALL LIGHT WITHIN REACH, WILL CONTINUE PLAN OF CARE
[2018-02-09 08:10] VITALS: BP 149/74
[2018-02-09 12:17] VITALS: BP 149/74
--- NOTE | 2018-02-09 12:20 | NUR ---
Received order from physician to arrange d/c to SNF vs home with home health. Reviewed chart and spoke with nurse and pt. Pt adamantly refuses SNF and said she will go home with home health. Pt said she wants referral sent to [facility]. [employer] to fax orders along with referral to . No other needs identified.
[2018-02-09] MEDS ORDERED: AUGMENTIN 875-1 EACH PO (13:02)
[2018-02-09] MEDS ORDERED: PERCOCET PO (13:05)
[2018-02-09 13:18] VITALS: BP 149/74
--- NOTE | 2018-02-09 13:41 | OP ---
[address] [address] OPERATIVE REPORT Name: HEATHER DIEHL Room: [address] IN .R.#: [id number] Admission: 02/05/18 Attend Phys: Belle Gillespie Discharge: Date of : 53 Report #: [id number] THIS REPORT FOR: //name// CC: Rene Amato DATE OF SERVICE: 02/05/2018 PREOPERATIVE DIAGNOSES: 1. Closed trimalleolar fracture with diastasis of syndesmotic ligament, right ankle. 2. Marked obesity, BMI 54. OPERATION PERFORMED: 1. Open reduction and internal fixation of trimalleolar fracture, right ankle. 2. Insertion of a transmalleolar screw for diastasis of syndesmotic ligament, right ankle. PHYSICIAN DIRECTED FLUOROSCOPY: Less than [address] Che. ANESTHESIA: General. SURGEON: Jeronimo Che DO. ROLLWAY WORKER: Rad Martinez. GROSS PATHOLOGY: There was evidence of a displaced fracture of the distal fibula of the right ankle with diastasis of the syndesmotic ligament, which x-rays in my office revealed change of her previous ankle mortise and fracture site, which revealed increased tibiotalar space, displacement of the distal fibula and surgical findings were consistent with a diastasis as well as the fractures above. The C-arm was used intermittently through surgery under my direction of less than 1 hour. IMPLANTS UTILIZED: Clare distal fibula plate system, 3.5 cortical locking and nonlocking screws. DESCRIPTION OF PROCEDURE: The patient was brought to the operating room where general anesthetic was administered. Preoperative antibiotics were given. A Hibiclens scrub and a ChloraPrep, prep were done to the right leg. The patient was draped in a sterile manner. Incision was then made approximately 5-1/2 inches in length on the distal right fibula. It was carried down through the skin and subcuticular material by sharp and blunt dissection. The fracture site was further identified. Hypertrophic tissue was removed from the fracture site. The fracture was reduced and held in place with clamps[place] [address] OPERATIVE REPORT Name: LYNDSEY DIEHLH Gunnar Room: [address] IN [facility]#: [id number] Admission: 02/05/18 Attend Phys: Belle Gillespie Discharge: Date of : 53 Report #: [id number] widening of the ankle mortise consistent with a diastasis. The plate was secured with screws as above. Two screw holes were left open for the insertion of the transmalleolar screws to also help make the constrain a diabetic sparing construct as well as one screw hole at the proximity of the fracture site. The screws were filled in the usual manner in the sideplate. The ankle mortise was reduced, and the transmalleolar screws were then inserted across the syndesmosis keeping this reduced. The C-arm was used intermittently through surgery with final pictures revealed acceptable position of the implant device and fracture sites. The medial malleolus was an avulsion type. The posterior malleolar fracture reduced well and was small in nature. The deep tissues closed with Vicryl sutures, subcutaneous with 2-0 Vicryl and lilly on the skin. ESTIMATED BLOOD LOSS: 30 mL. The area is anesthetized with Marcaine 0.5% plain, approximately 30 mL. The sterile dressing was applied. Gerardo Guzman dressing, splints posterior and stirrup U was applied. The patient was transferred to the recovery room in good condition. It is noted the patient's urine was positive for bacteria consistent with UTI. The patient also demanded a Dominguez be put into place. We will continue postoperatively antibiotics for her UTI and change per Medicine as they wish. The patient will also be admitted because of her marked obesity needing therapy as well as care of her multiple medical conditions. <ELECTRONICALLY SIGNED> By: Jeronimo Che DO 02/09/18 1341 1142 1228Micmick Che DO /nt
--- NOTE | 2018-02-09 14:29 | NUR ---
ASSUMED CARE OF PATIENT AFTER REPORT THIS MORNING. PATIENT AWAKE, ALERT, AND ORIENTED APPROPRIATELY. PHYSICAL ASSESSMENT COMPLETED AND CHARTED. COMPLAINED OF PAIN THIS SHIFT. GIVEN PRN AND SCHEDULED MEDICATIONS, SEE EMAR FOR DOCUMENTATION. VITAL SIGNS STABLE. OXYGEN SATURATION WITHIN NORMAL LIMITS ON ROOM AIR. PATIENT TRANSFERS WITH ASSIST FROM STAFF. USES CALL LIGHT APPROPRIATELY. RECEIVED ORDERS TO DISCHARGE PATIENT HOME WITH HOME HEALTH. PATIENT REFUSES TO GO TO A FACILITY. DISCHARGE PAPERWORK COMPLETED AND CHECKED BY SECOND NURSE. IV DISCONTINUED. WAITING FOR PATIENT'S RIDE AT THIS TIME. CALL LIGHT WITHIN REACH. DENIES NEEDS. NURSING WILL CONTINUE TO MONITOR.
--- NOTE | 2018-02-09 15:16 | NUR ---
DISCHARGE PAPERWORK DISCUSSED WITH PATIENT AND PRESCRIPTIONS GIVEN AND DISCUSSED WITH PATIENT. PAPERWORK SIGNED AND ON PATIENT'S CHART. ARRIVED WITH PATIENT'S WHEELCHAIR. TRANSPORTED PATIENT TO FRONT ENTERANCE IN HER OWN WHEELCHAIR. ESCORTED BY CRISTHIAN GIVENS. PATIENT DISCHARGED AT 1515.
== END 2018-02-09 15:15 | disposition home health service (06) | DRG 492 ==
LOC: M.TBA 06:30 → M.PRE 09:13 → M.3W 17:27
PROVIDERS: Internal Medicine; Orthopaedic Surgery; ADMIT Internal Medicine
PROC: 0QSJ04Z Reposition Right Fibula with Internal Fixation Device, Open Approach (ICD-10-PCS; principal; 2018-02-05)
PROC: 0QHG04Z Insertion of Internal Fixation Device into Right Tibia, Open Approach (ICD-10-PCS; principal; 2018-02-05)
DX: S82.851A Displaced trimalleolar fracture of right lower leg, initial encounter for closed fracture (principal); G92 Toxic encephalopathy; N39.0 Urinary tract infection, site not specified; Z68.43 Body mass index [BMI] 50.0-59.9, adult; J96.10 Chronic respiratory failure, unspecified whether with hypoxia or hypercapnia; B96.20 Unspecified Escherichia coli [E. coli] as the cause of diseases classified elsewhere; E11.9 Type 2 diabetes mellitus without complications; E66.01 Morbid (severe) obesity due to excess calories; G47.33 Obstructive sleep apnea (adult) (pediatric); G89.29 Other chronic pain; I11.0 Hypertensive heart disease with heart failure; T50.905A Adverse effect of unspecified drugs, medicaments and biological substances, initial encounter; J44.9 Chronic obstructive pulmonary disease, unspecified; I48.91 Unspecified atrial fibrillation; I50.9 Heart failure, unspecified; Z96.1 Presence of intraocular lens; X58.XXXA Exposure to other specified factors, initial encounter; Z79.2 Long term (current) use of antibiotics; Z79.4 Long term (current) use of insulin; Z79.01 Long term (current) use of anticoagulants; Z79.899 Other long term (current) drug therapy; Z88.1 Allergy status to other antibiotic agents; Z88.2 Allergy status to sulfonamides; Z90.710 Acquired absence of both cervix and uterus; Z98.41 Cataract extraction status, right eye; Z90.49 Acquired absence of other specified parts of digestive tract; Z80.9 Family history of malignant neoplasm, unspecified; Z82.49 Family history of ischemic heart disease and other diseases of the circulatory system; Y92.89 Other specified places as the place of occurrence of the external cause; Y93.89 Activity, other specified; Y92.121 Bathroom in nursing home as the place of occurrence of the external cause; Y99.8 Other external cause status

== ENCOUNTER 2018-03-24 15:28 | Inpatient (IN) | payer MEDICARE, MEDICAID ==
[~2018-03-24] VITALS: Ht 167.6 cm; Wt 129.3 kg
[2018-03-24 15:44] VITALS: BP 156/68
[2018-03-24 16:02] LABS: ABSOLUTE BASOPHILS 0.1 thou/uL (0.0-0.2); ABSOLUTE EOSINOPHILS 0.3 thou/uL (0.0-0.7); ABSOLUTE LYMPHOCYTES 2.7 thou/uL (0.8-5.3); ABSOLUTE MONOCYTES 1.1 thou/uL (0.0-1.2); ABSOLUTE NEUTROPHILS 13.3 thou/uL (1.6-8.1); BASOPHILS 0.7 %; EOSINOPHILS 1.5 %; HEMATOCRIT 43.4 % (37.0-47.0); LYMPHOCYTES 15.3 %; MCH 29.6 pg (26.0-34.0); MCHC 32.2 g/dL (28.0-37.0); MCV 91.7 fL (80.0-100.0); MONOCYTES 6.5 %; MPV 9.2 fl. (7.2-11.1); NUCLEATED RBCS 0 /100WBC; PLATELET COUNT* 318 thou/uL (150-400); RBC 4.73 mil/uL (4.20-5.00); RDW-CV 15.1 % (10.5-14.5); WBC 17.5 thou/uL (4.0-11.0)
[2018-03-24 16:13] LABS: ANION GAP 11 mmol/L (7-16); BUN 27 mg/dL (7-18); CALCIUM 8.2 mg/dL (8.5-10.1); CHLORIDE 96 mmol/L (98-107); CO2 19 mmol/L (21-32); CREATININE 1.6 mg/dL (0.6-1.3); GLUCOSE 199 mg/dL (70-99); SODIUM 126 mmol/L (136-145)
[2018-03-24 16:15] LABS: APTT 38.4 Seconds (25.0-31.3); INR 1.4; PROTIME 13.3 Seconds (9.20-11.50)
[2018-03-24 16:44] LABS: URINE BILIRUBIN NEGATIVE (Negative); URINE BLOOD 3+ (Negative); URINE CLARITY CLOUDY; URINE COLOR YELLOW; URINE GLUCOSE-RANDOM NEGATIVE (Negative); URINE KETONES TRACE (Negative); URINE PROTEIN TRACE (Negative); URINE UROBILINOGEN 0.2 E.U./dl (0.2-1.0)
[2018-03-24 16:46] LABS: ALBUMIN 2.3 g/dL (3.4-5.0); ALKALINE PHOSPHATASE 111 U/L (46-116); CK-MB MASS 0.5 ng/mL (<0.5-3.6); NT-PRO BRAIN NAT PEPTIDE 258 pg/mL (<300); SGOT 28 U/L (15-37); SGPT 22 U/L (30-65); TOTAL BILIRUBIN 0.3 mg/dL (<0.1-1.0); TOTAL PROTEIN 6.3 g/dL (6.4-8.2); TROPONIN-I LEVEL <0.06 ng/mL (<0.06)
[2018-03-24 17:00] LABS: URINE LEUKOCYTES-REFLEX 3+ (Negative); URINE NITRITE-REFLEX POSITIVE (Negative)
--- NOTE | 2018-03-24 17:02 | NUR ---
PT WHEEL CHAIR TAKEN TO CAR BY .
[2018-03-24 17:03] LABS: CASTS None Seen /LPF (None Seen); CRYSTALS None Seen /LPF (None Seen); SQUAMOUS >10 Many /LPF (0-3); URINE RBC 3-10 Few /HPF (0-2); URINE WBC-REFLEX >25 Many /HPF (0-5)
[2018-03-24 17:45] VITALS: BP 153/53
--- NOTE | 2018-03-24 18:05 | NUR ---
ER ADMIT TO 221 DIAGNOSIS HALLUCINATIONS REPORT GIVEN PATIENT TO VIA CART ASSIST TO BED ORIENTED TO RM OR CALL IGHT DENIES PAIN
[2018-03-24 18:15] VITALS: BP 157/71
[2018-03-24 20:00] VITALS: BP 152/81
[2018-03-25 00:42] VITALS: BP 146/63
[2018-03-25 04:54] VITALS: BP 153/64
--- NOTE | 2018-03-25 05:03 | NUR ---
ASSUMED CARE OF PT AFTER REPORT AT 1930.PT A&OX4. VSS. PHYSICAL ASSESSMENT COMPLETED & CHARTED. PT ON RA WITH 92% O2 SAT. PT TRACING SR 1ST DEG ON TELE.WOUND PRESSURE NOTED ON BILATERAL HIPS, SACRAL AND BUTTOCKS WITH ISH OF BEDPAN-PHOTOS TAKEN PLS SEE CHART.PT HAD 4 LIQUIDY STOOLS EPSIODES AND WITH EPISODES OF INCONTINENCE.DR SU INFORMED WITH NEW ORDERS. HAM CATHETER INSERTED. STOOL SPEMICEN SENT FOR C DIF. NO EPISODES OF HALLUCINATIONS.PTS REQUESTS FOR TRAMADOL & PRIMIDONE-DR SU INFORMED AND CLAIMED WILL AWAIT NEURO CONSULT FIRST.CALL LIGHT WITHIN REACH. BED IN LOW POSITION.
[2018-03-25 05:43] LABS: ABSOLUTE BASOPHILS 0.1 thou/uL (0.0-0.2); ABSOLUTE EOSINOPHILS 0.2 thou/uL (0.0-0.7); ABSOLUTE LYMPHOCYTES 1.7 thou/uL (0.8-5.3); ABSOLUTE MONOCYTES 1.1 thou/uL (0.0-1.2); ABSOLUTE NEUTROPHILS 10.9 thou/uL (1.6-8.1); BASOPHILS 0.4 %; EOSINOPHILS 1.5 %; HEMATOCRIT 39.6 % (37.0-47.0); HEMOGLOBIN 12.6 gm/dL (12.0-15.0); LYMPHOCYTES 12.2 %; MCH 29.5 pg (26.0-34.0); MCV 92.4 fL (80.0-100.0); MPV 9.1 fl. (7.2-11.1); NUCLEATED RBCS 0 /100WBC; POLYS 77.9 %; RBC 4.29 mil/uL (4.20-5.00); RDW-CV 14.9 % (10.5-14.5)
[2018-03-25 05:52] LABS: CALCIUM 7.7 mg/dL (8.5-10.1); CREATININE 1.2 mg/dL (0.6-1.3); PLATELET COUNT* 237 thou/uL (150-400); POTASSIUM 4.3 mmol/L (3.5-5.1)
[2018-03-25 08:00] VITALS: BP 154/60
--- NOTE | 2018-03-25 11:46 | NUR ---
ASSUMED CARE OF PATIENT THIS AM AT 0730. PATIENT IS ALERT AND ORIENTED X 4. SHE DENIED PAIN THIS AM. PATIENT CONTINUES IN ISOLATION FOR POSSIBLE CDIF. TELE SHOWS SR WITH 1D AVB. PATIENT IS USING BEDPAN FREQUENTLY. ASSISTED TO TURN Q 2 HR. IV FLUIDS CONTINUED. FSBS MONITORED ORDERED. IV FLUIDS CONTINUED PER ORDER. SEE FLOW SHEET FOR ASSESSMENTS. PATIENT IS TAKING HER DIET WELL. WILL CONTINUE TO MONITOR.
[2018-03-25 12:00] VITALS: BP 128/56
--- NOTE | 2018-03-25 14:53 | NUR ---
Pt is A&O. Resides at home with her . Pt was discharged from [facility] to home last Friday. Pt uses a electric wc for mobility and is normally able to transfer with slide board. Hx of [facility]. Pt has also been to [facility]. Pt's goal is to return home at ca. Following.
[2018-03-25 16:00] VITALS: BP 135/78
--- NOTE | 2018-03-25 17:29 | EKG ---
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 Rewinder: : 1955 Requested By: Narciso Yen Order Number: [id number] MD: Yahir Wylie Measurements Intervals [place] Rate: 91 P: 38 MI: 196 QRS: -14 QRSD: 97 T: 147 QT: 352 QTc: 434 Interpretive Statements Sinus rhythm Low voltage, precordial leads Consider anterior infarct Abnormal T, consider ischemia, lateral leads Compared to ECG 01/10/2018 18:00:15 Low QRS voltage now present Myocardial infarct finding now present T-wave abnormality now present Possible ischemia now present Electronically Signed On 03-25-2018 17:29:35 CDT by Yahir Wylie [email or web address] <ELECTRONICALLY SIGNED> By: Yahir Wylie MD, [facility] 03/25/18 1729 1630 1630 Yahir Wylie MD, [facility] /EPI
[2018-03-25 20:00] VITALS: BP 140/54
[2018-03-26] VITALS (7 sets, daily range): BP systolic 112–155; BP diastolic 32–76
--- NOTE | 2018-03-26 04:51 | NUR ---
ASSUMED CARE OF PT AFTER REPORT AT 1930. PT A&OX4.VSS. PHYSICAL ASSESSMENT COMPLETED AND CHARTED. PT ON RA WITH 95% O2 SAT. PT TRACING SR 1ST DEG ON TELE. PT HAS A HAM CATH PATENT & INTACT. PT COMPLAINED OF BACK & KNEE PAIN WITH PAIN SCALE OF 8/10-PAIN MEDS GIVEN WITH PARTIAL RELIEF. PT HAS CRITICAL RESULT BLOOD CULTURE-GRAM POSITIVE COCCI-RELAYED TO DR SPANN WITH NEW ORDER.HOURLY ROUNDING OBSERVED. HS REST & SAFETY GOALS ACHIEVED. CALL LIGHT WITHIN REACH. BED IN LOW POSITION.
[2018-03-26 04:58] LABS: ABSOLUTE BASOPHILS 0.1 thou/uL (0.0-0.2); ABSOLUTE EOSINOPHILS 0.3 thou/uL (0.0-0.7); ABSOLUTE LYMPHOCYTES 1.9 thou/uL (0.8-5.3); ABSOLUTE MONOCYTES 0.9 thou/uL (0.0-1.2); ABSOLUTE NEUTROPHILS 10.6 thou/uL (1.6-8.1); BASOPHILS 0.6 %; EOSINOPHILS 1.9 %; HEMATOCRIT 38.3 % (37.0-47.0); HEMOGLOBIN 12.3 gm/dL (12.0-15.0); LYMPHOCYTES 13.9 %; MCH 29.3 pg (26.0-34.0); MCHC 32.1 g/dL (28.0-37.0); MCV 91.3 fL (80.0-100.0); MONOCYTES 6.9 %; MPV 9.5 fl. (7.2-11.1); NUCLEATED RBCS 0 /100WBC; PLATELET COUNT* 240 thou/uL (150-400); POLYS 76.7 %; RBC 4.19 mil/uL (4.20-5.00); RDW-CV 14.7 % (10.5-14.5); WBC 13.8 thou/uL (4.0-11.0)
[2018-03-26 05:16] LABS: ALBUMIN 1.9 g/dL (3.4-5.0); CALCIUM 7.7 mg/dL (8.5-10.1); POTASSIUM 3.8 mmol/L (3.5-5.1); TOTAL BILIRUBIN 0.2 mg/dL (<0.1-1.0); TOTAL PROTEIN 5.3 g/dL (6.4-8.2)
--- NOTE | 2018-03-26 14:44 | NUR ---
WOUND CARE NOTE: CONSULT RECEIVED FOR WOUNDS ON HIPS, SACRAL AND BUTTOCKS. PATIENT PRESENTS WITH MULTIPLE AREAS OF SKIN BREAKDOWN. RIGHT HIP: STAGE 2 PRESSURE ULCER, MULTIPLE SITES OF ULCERATION. CLUSTERED, THE WOUND MEASURES 17.7X23X0.1. MOIST, RED, NON-GRANULAR WOUND BED. APPLIED BARRIER OINTMENT. LEFT HIP: STAGE 2 PRESSURE ULCER, MULTIPLE SITES OF ULCERATION. CLUSTERED, THE WOUND MEASURES 10.5X16X0.1. MOIST, RED, NON-GRANULAR WOUND BED. APPLIED BARRIER OINTMENT. LEFT POSTERIOR THIGHT: DTI MEASURING 1X9. PURPLE/MAROON DISCOLORATION WITHOUT OPENING. APPLIED BARRIER OINTMENT. LEFT BUTTOCK: UNSTAGEABLE PRESSURE ULCER WITH MULTIPLE SITES OF ULCERATION. CLUSTERED THE WOUND MEASURES 2.6X4X0.3. YELLOW, MOIST, ADHERENT SLOUGH TO 100% OF WOUND BED. CLEANSED WELL. APPLIED SKIN PREP TO ROLAND-WOUND. APPLIED AQUACEL AG TO WOUND BED. SECURED WITH EXUDERM THEN TEGADERM. RIGHT LOWER ABDOMEN, UNDERNEATH FOLD: ULCERATION MEASURING 0.5X1X0.1. UNSURE OF ETIOLOGY. WOUND BED IS RED, MOIST, NON-GRANULAR. ROLAND-WOUND WITH YEAST INFECTION. APPLIED AQUACEL AG TO WOUND BED AND COVERED WITH BORDERED FOAM. PATIENT TOLERATED WELL. EDUCATED ON IMPORTANCE OF TURNING AND KEEPING OFF AREA, PATIENT STATED THEY HAD BEEN TURNING HER. BARIATRIC RECLINER ORDERD AND WAFFLE CUSHION. RECOMMEND TURN Q2 HOURS LIMIT LAYERS OF LINEN UNDER PATIENT ENCOURAGE GOOD NUTRITION AND HYDRATION TIGHT BLOOD GLUCOSE CONTROL HOB <30 DEGREES IF CAN TOLERATE
--- NOTE | 2018-03-26 18:34 | NUR ---
PT HAD FREQUENT LOOSE BM TODAY USING BEDPAN. PT C/O PAIN IN BACK AND LEGS BUT REFUSED TYLENOL. BARIATRIC RECLINER ORDERED TODAY. BARRIER CREAM TO BUTTOCKS. HAM TO DD WITH YELLOW URINE. TELE SR HRR. PT ABLE TO MAKE NEEDS KNOWN, CALL LIGHT IN REACH
[2018-03-27] VITALS: BP 137/50
[2018-03-27 04:00] VITALS: BP 124/74
[2018-03-27 05:28] LABS: HEMATOCRIT 36.8 % (37.0-47.0); HEMOGLOBIN 12.1 gm/dL (12.0-15.0); MCH 30.1 pg (26.0-34.0); MCHC 32.9 g/dL (28.0-37.0); MCV 91.6 fL (80.0-100.0); NUCLEATED RBCS 0 /100WBC; PLATELET COUNT* 231 thou/uL (150-400); RBC 4.02 mil/uL (4.20-5.00); RDW-CV 14.9 % (10.5-14.5); WBC 8.4 thou/uL (4.0-11.0)
[2018-03-27 05:41] LABS: PREALBUMIN 10.6 mg/dL (18.0-35.7)
[2018-03-27 05:52] LABS: ALBUMIN 1.9 g/dL (3.4-5.0); CALCIUM 7.4 mg/dL (8.5-10.1); CREATININE 0.9 mg/dL (0.6-1.3); POTASSIUM 3.9 mmol/L (3.5-5.1); TOTAL BILIRUBIN 0.2 mg/dL (<0.1-1.0); TOTAL PROTEIN 5.1 g/dL (6.4-8.2)
[2018-03-27 06:56] LABS: ABSOLUTE EOSINOPHILS 0.3 thou/uL (0.0-0.7); ABSOLUTE LYMPHOCYTES 0.9 thou/uL (0.8-5.3); ABSOLUTE MONOCYTES 0.4 thou/uL (0.0-1.2); ABSOLUTE NEUTROPHILS 6.8 thou/uL (1.6-8.1); PLATELET ESTIMATE ADEQUATE
[2018-03-27 08:10] VITALS: BP 141/44
--- NOTE | 2018-03-27 10:01 | NUR ---
RECEIVED REPORT FROM ESTELLA AND ASSUMED CARE OF PT @ 8591.PT IS A/O,VSS,TRACING SR ON THE MONITOR.LUNG SOUNDS ARE DIMINSHED.LAST BM WAS TODAY.IV LEFT WRIST PATENT AND SALINE LOCKED.PT IS CALM AND COOPERATIVE WITH C/O PAIN IN KNEES AND BACK-RELIEF WITH MEDICATIONS.PT IS BEDREST WITH Q2 HOUR POSITION CHANGE.PT LEFT RESTING IN BED WITH CALL LIGHT AND FALL PRECAUTIONS IN PLACE.WILL CONTINUE TO MONITOR.
[2018-03-27 16:04] VITALS: BP 155/57
--- NOTE | 2018-03-27 18:22 | NUR ---
VSS,CARDIAC MONITORING IN PLACE WITH NO CHANGES.PAIN MANGAED WELL WITH PO PAIN MEDICATIONS.IV ANTIBIOTICS GIVEN.HAM SECURE AND PATENT.ISOLATION MAINTAINED.PT WORKED WITH PHYSICAL THERAPY TODAY AND GOT UP TO CHAIR WITH ASSIST OF 3.PT WORKED WITH OT.NEW DRESSING APPLIED TO WOUND PER ORDERS.HOURLY ROUNDING COMPLETED FOR PT SAFETY.CALL LIGHT AND FALL PRECAUTIONS IN PLACE.WILL CONTINUE TO MONITOR FOR DURATION OF SHIFT.
[2018-03-27 20:00] VITALS: BP 142/68
[2018-03-28] VITALS: BP 144/40
--- NOTE | 2018-03-28 02:53 | NUR ---
ASSUMED PT CARE AT 1930. ASSESSMENT COMPLETED CHARTED. ABLE TO MAKE NEEDS KNOWN. Q2HR TURN, ABLE TO TURN SELF, REDRESSED BOTTOM WOUND, ISOLATION STILL IN EFFECT, C/O CHRONIC BACK PAIN. WILL CONTINUE TO MONITOR.
[2018-03-28 04:00] VITALS: BP 145/62
[2018-03-28 05:42] LABS: ABSOLUTE EOSINOPHILS 0.3 thou/uL (0.0-0.7); ABSOLUTE LYMPHOCYTES 1.9 thou/uL (0.8-5.3); ABSOLUTE MONOCYTES 0.6 thou/uL (0.0-1.2); ABSOLUTE NEUTROPHILS 5.8 thou/uL (1.6-8.1); BASOPHILS 0.6 %; EOSINOPHILS 3.4 %; HEMATOCRIT 38.9 % (37.0-47.0); HEMOGLOBIN 12.7 gm/dL (12.0-15.0); LYMPHOCYTES 22.5 %; MCH 30.1 pg (26.0-34.0); MCHC 32.7 g/dL (28.0-37.0); MCV 91.9 fL (80.0-100.0); MONOCYTES 6.6 %; MPV 9.3 fl. (7.2-11.1); NUCLEATED RBCS 0 /100WBC; PLATELET COUNT* 252 thou/uL (150-400); POLYS 66.9 %; RBC 4.23 mil/uL (4.20-5.00); RDW-CV 15.2 % (10.5-14.5); WBC 8.6 thou/uL (4.0-11.0)
[2018-03-28 05:49] LABS: ALBUMIN 2.2 g/dL (3.4-5.0); CALCIUM 8.1 mg/dL (8.5-10.1); POTASSIUM 3.7 mmol/L (3.5-5.1); TOTAL BILIRUBIN 0.2 mg/dL (<0.1-1.0); TOTAL PROTEIN 5.5 g/dL (6.4-8.2)
[2018-03-28 07:55] VITALS: BP 147/53
[2018-03-28 09:22] LABS: AMP/METHAMP Negative (Negative); BARBITURATES POSITIVE (Negative); BENZODIAZEPINES Negative (Negative); COCAINE Negative (Negative); METHADONE Negative (Negative); OPIATES Negative (Negative); PCP Negative (Negative); THC Negative (Negative)
--- NOTE | 2018-03-28 11:27 | NUR ---
RECEIVED REPORT FROM RIO AND ASSUMED CARE OF PT @ 4287.PT IS A/O,VSS,TRACING SR ON THE MONITOR.LUNG SOUNDS ARE DIMINSHED.LAST BM WAS TODAY.IV PATENT AND SALINE LOCKED.HAM SECURE AND PATENT.PT IS CALM AND COOPERATIVE WITH C/O PAIN-RELIEF WITH MEDICATIONS.PT IS BEDREST WITH Q2 HOUR POSITION CHANGES.NEW WOUND DRESSING PLACED THIS AM.PT LEFT RESTING IN BED WITH CALL LIGHT AND FALL PRECAUTIONS IN PLACE.WILL CONTINUE TO MONITOR.
[2018-03-28 12:47] VITALS: BP 144/46
--- NOTE | 2018-03-28 15:27 | NUR ---
CM SPOKE TO THE PATIENT TO DISCUSS SNF AT D/C AND DISCHARGE PLANNING NEEDS. PATIENT STATES 'I WANT TO GO HOME, I DONT WANT TO GO BACK TO THE SKILLED NURSING'. CM WILL REMAIN AVAILABLE TO ASSIST AND FOLLOW NEEDED.
--- NOTE | 2018-03-28 18:14 | NUR ---
VSS,CARDIAC MONITORING IN PLACE WITH NO CHANGES THIS SHIFT.PT REMAINS ON ROOM AIR.PT PROGRESSING TOWARDS GOALS.PAIN WELL MANAGED WITH PO MEDICATIONS.IV ANTIBIOTICS GIVEN.Q2H POSITION CHANGES.DRESSING CHANGED ON WOUND.PT WORKED WITH PHYSICAL THERAPY AND GOT UP TO CHAIR.PT INFORMED OF PLAN OF CARE AND COMMUNICATES UNDERSTANDING.HOURLY ROUNDING COMPLETED FOR PT SAFETY.CALL LIGHT AND FALL PRECAUTIONS IN PLACE.WILL CONTINUE TO MONITOR FOR DURATION OF SHIFT.
[2018-03-28 18:20] VITALS: BP 155/55
[2018-03-28 20:00] VITALS: BP 151/67
[2018-03-29] VITALS: BP 147/38
[2018-03-29 04:00] VITALS: BP 149/87
--- NOTE | 2018-03-29 04:46 | NUR ---
ASSUMED PT CARE AT 1930. ASSESSMENT COMPLETED CHARTED. PT HAD HAM REPLACED AND THEN WANTED THE HAM OUT DUE TO PAIN AT INSERTION SITE AND DOESNT WANT IT BACK IN. ISOLATION STILL IN EFFECT. ABLE TO MAKE NEEDS KNOWN, PT HAS C/O CHRONIC BACK AND KNEE PAIN AND HAS BEEN GETTING CRAMPS IN FOOT AND GIVEN PRN PAIN MEDICATION. HAVE ALSO BEEN CHANGING BOTTOM WOUND DRESSING SEVERAL TIMES DUE TO BOWEL MOVEMENTS. WILL CONTINUE TO MONITOR.
[2018-03-29 08:25] VITALS: BP 162/66
--- NOTE | 2018-03-29 11:14 | NUR ---
RECEIVED REPORT FROM RIO AND ASSUMED CARE OF PT @ 7299.PT IS A/O,VSS,TRACING SR ON THE MONITOR.LUNG SOUNDS ARE CLEAR DIMINSHED.LAST BM WAS TODAY.IV LEFT WRIST PATENT AND SALINE LOCKED.PT IS CALM AND COOPERATIVE WITH C/O PAIN IN ANKLE 4/10-RELIEF WITH MEDICATION.PT IS BEDREST WITH Q2 HOUR POSITION CHANGES.PT LEFT RESTING IN BED WITIH CALL LIGHT AND FALL PRECAUTIONS IN PLACE.WILL CONTINUE TO MONITOR. PT OK FOR DISCHARGE.PAPERWORK COMPLETED AND GIVEN TO PT.SCRIPTS GIVEN WITH EDUCATION.IV REMOVED.HEART MONITOR REMOVED AND RETURNED TO NURSING STATION.DISCHARGE PICTURES TAKEN.WOUND DRESSINGS CHANGED.ALL PERSONAL BELONGINGS PACKED AND TAKEN WITH PT.
[2018-03-29] MEDS ORDERED: VANCOCIN 125 M125 M1 PO (11:39)
[2018-03-29 11:51] VITALS: BP 162/66
== END 2018-03-29 13:32 | DRG 371 ==
LOC: M.ERS 15:28 → M.2W 17:05 → M.TBA-ER 17:05 → M.2W 18:04
PROVIDERS: Family Medicine; ADMIT Internal Medicine
DX: A04.72 Enterocolitis due to Clostridium difficile, not specified as recurrent (principal); G93.40 Encephalopathy, unspecified; R65.11 Systemic inflammatory response syndrome (SIRS) of non-infectious origin with acute organ dysfunction; N17.9 Acute kidney failure, unspecified; N39.0 Urinary tract infection, site not specified; F11.20 Opioid dependence, uncomplicated; E87.1 Hypo-osmolality and hyponatremia; Z68.42 Body mass index [BMI] 45.0-49.9, adult; G25.0 Essential tremor; I48.91 Unspecified atrial fibrillation; G47.33 Obstructive sleep apnea (adult) (pediatric); E66.01 Morbid (severe) obesity due to excess calories; E11.9 Type 2 diabetes mellitus without complications; I10 Essential (primary) hypertension; J44.9 Chronic obstructive pulmonary disease, unspecified; Z96.1 Presence of intraocular lens; Z79.01 Long term (current) use of anticoagulants; Z91.19 Patient's noncompliance with other medical treatment and regimen; Z87.81 Personal history of (healed) traumatic fracture; Z88.1 Allergy status to other antibiotic agents; Z88.2 Allergy status to sulfonamides; Z90.49 Acquired absence of other specified parts of digestive tract; Z90.710 Acquired absence of both cervix and uterus; Z91.81 History of falling; Z98.41 Cataract extraction status, right eye; Z87.891 Personal history of nicotine dependence; Z79.2 Long term (current) use of antibiotics; Z79.4 Long term (current) use of insulin; Z79.899 Other long term (current) drug therapy; Z82.49 Family history of ischemic heart disease and other diseases of the circulatory system; Z80.9 Family history of malignant neoplasm, unspecified

== ENCOUNTER 2018-04-02 20:57 | Inpatient (IN) | payer MEDICARE, MEDICAID ==
[~2018-04-02] VITALS: Ht 167.6 cm; Wt 150.6 kg
--- NOTE | ~2018-04-02 | EKG ---
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: 00 : 1955 Requested By: Clary Morin Order Number: [id number] MD: Measurements Intervals [place] Rate: 65 P: 43 NH: 231 QRS: 9 QRSD: 103 T: 34 QT: 440 QTc: 458 Interpretive Statements Sinus rhythm Prolonged NH interval Low voltage, precordial leads Minimal ST depression, lateral leads Compared to ECG 03/24/2018 16:30:33 First degree AV block now present ST (T wave) deviation now present Myocardial infarct finding no longer present T-wave abnormality no longer present Possible ischemia no longer present [email or web address] By: 31 31 Epiphany Epiphany, /ARCHANA
--- NOTE | ~2018-04-02 | EKG ---
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: MARLEEN : 1955 Requested By: Clary Morin Order Number: [id number] MD: Measurements Intervals [place] Rate: 42 P: HI: QRS: 18 QRSD: 91 T: 178 QT: 592 QTc: 495 Interpretive Statements Junctional rhythm Repol abnrm suggests ischemia, anterolateral Compared to ECG 03/24/2018 16:30:33 Junctional rhythm now present Early repolarization now present Sinus rhythm no longer present Myocardial infarct finding no longer present T-wave abnormality no longer present Possible ischemia still present [email or web address] By: 01 01 Epiphany Epiphany, /ARCHANA
[~2018-04-02 20:57] MED LIST changes: +VANCOCIN 125 M125 M1 PO
[2018-04-02 21:04] VITALS: BP 105/34
[2018-04-02 21:28] LABS: ABSOLUTE BASOPHILS 0.1 thou/uL (0.0-0.2); ABSOLUTE EOSINOPHILS 0.2 thou/uL (0.0-0.7); ABSOLUTE LYMPHOCYTES 2.4 thou/uL (0.8-5.3); ABSOLUTE MONOCYTES 0.7 thou/uL (0.0-1.2); EOSINOPHILS 2.1 %; HEMATOCRIT 38.6 % (37.0-47.0); HEMOGLOBIN 12.7 gm/dL (12.0-15.0); MCH 29.8 pg (26.0-34.0); MCHC 32.9 g/dL (28.0-37.0); MCV 90.6 fL (80.0-100.0); MONOCYTES 8.9 %; MPV 9.2 fl. (7.2-11.1); NUCLEATED RBCS 0 /100WBC; PLATELET COUNT* 303 thou/uL (150-400); RBC 4.26 mil/uL (4.20-5.00); WBC 8.4 thou/uL (4.0-11.0)
[2018-04-02 21:41] LABS: APTT 36.3 Seconds (25.0-31.3); INR 1.3; PROTIME 12.2 Seconds (9.20-11.50)
[2018-04-02 21:51] LABS: ANION GAP 10 mmol/L (7-16); BUN 10 mg/dL (7-18); CHLORIDE 103 mmol/L (98-107); CO2 21 mmol/L (21-32); CREATININE 1.5 mg/dL (0.6-1.3); GLUCOSE 217 mg/dL (70-99); POTASSIUM 3.7 mmol/L (3.5-5.1); SODIUM 134 mmol/L (136-145)
[2018-04-02 22:00] LABS: ALBUMIN 2.4 g/dL (3.4-5.0); ALKALINE PHOSPHATASE 85 U/L (46-116); NT-PRO BRAIN NAT PEPTIDE 2379 pg/mL (<300); SGOT 27 U/L (15-37); SGPT 36 U/L (30-65); TOTAL BILIRUBIN 0.3 mg/dL (<0.1-1.0); TOTAL PROTEIN 5.7 g/dL (6.4-8.2); TROPONIN-I LEVEL <0.06 ng/mL (<0.06)
[2018-04-02 23:04] VITALS: BP 103/38
[2018-04-02 23:25] VITALS: BP 123/43
[2018-04-03 03:41] VITALS: BP 109/34
--- NOTE | 2018-04-03 04:02 | NUR ---
ASSUMED CARE OF PT AT 2325. PT IS ALERT AND ORIENTED BUT VERY DROWSY. VSS. PERRLA. NO COMPLAINTS OF PAIN. PT IS A Q2 TURN. PT IS SINUS BRADYCARDIA. PT IS SLEEPING COMFORTABLY IN BED. RESPIRATIONS ARE EVEN AND NONLABORED. WILL CONTINUE TO MONITOR PT.
[2018-04-03 06:48] LABS: AMP/METHAMP Negative (Negative); BARBITURATES POSITIVE (Negative); BENZODIAZEPINES Negative (Negative); COCAINE Negative (Negative); METHADONE Negative (Negative); OPIATES Negative (Negative); PCP Negative (Negative); THC Negative (Negative)
[2018-04-03 08:30] VITALS: BP 141/42
--- NOTE | 2018-04-03 08:30 | NUR ---
RECEIVED REPORT FROM BONNIE AND ASSUMED CARE OF PT @ 4914.PT IS A/O BUT VERY SLEEPY.VSS,TRACING SB WITH 1ST DEGREE.LUNG SOUNDS ARE CLEAR.LAST BM WAS TODAY.IV RIGHT AC PATENT WITH FLUIDS INFUSING PER ORDERS.IV LEFT HAND PATENT AND SALINE LOCKED.PT IS CALM ANDC OOPERATIVE WITH NO C/O PAIN AT TIME OF ASSESSMENT.PT IS BEDREST WITH Q2 HOUR POSITION CHANGE.PT LEFT RESTING IN BED WITH CALL LIGHT AND FALL PRECAUTIONS IN PLACE.WILL CONTINUE TO MONITOR.
[2018-04-03] MEDS ORDERED: MYSOLINE50 MG PO (09:37)
[2018-04-03 10:00] LABS: CALCIUM 7.7 mg/dL (8.5-10.1); CREATININE 1.3 mg/dL (0.6-1.3); MAGNESIUM 1.5 mg/dL (1.8-2.4); POTASSIUM 3.8 mmol/L (3.5-5.1)
[2018-04-03 11:14] VITALS: BP 153/41
--- NOTE | 2018-04-03 13:37 | NUR ---
Nutrition: Pt usually weighs 340#. 332# today. Admitted with cardiac dysrythmia. CHO controlled diet ordered. RD has educated pt on wt loss, CHO counting in past. Pt is noncompliant. MALKA/CPAP, narc dependent, afib. Has ARF, SIRS, UTI. Has wound on Lt buttock. Labs: BG 192, alb 2.4, prealb 14.7. RX: insulin, MVI, vanc. Increased nutrient needs R/T wound healing AEB long-term wound. RD will order Tigre b.i.d. for added protein for wound healing. Recommend continue MVI, tight BG control for wound healing aslo. Mild risk.
--- NOTE | 2018-04-03 13:53 | NUR ---
WOUND CARE NOTE: CONSULT RECEIVED FOR GLUTEAL WOUNDS PATIENT KNOWN TO ME FROM PREVIOUS HOSPITAL STAY. RIGHT HIP: HEALING STAGE 2 PRESSURE ULCER, MULTIPLE SITES OF ULCERATION, CLUSTERED MEASURE 9X6X0.2. CLEANSED WOUND AND REMOVED WHAT APPEARED TO BE BLACK HAIR FROM THE WOUND. WOUNDS ARE HEALING, ROLAND-WOUND WITH NEW EPITHELIUM. WOUND BEDS ARE RED, MOIST. APPLIED SKIN PREP TO ROLAND-WOUND. APPLIED AQUACEL AG TO WOUND BEDS AND SECURED WITH EXUDERM. RIGHT SIDE: HEALING STAGE 2 PRESSURE ULCER, MULTIPLE SITES OF ULCERATION. CLUSTERED MEASURE 3X6X0.1. CLEANSED WOUND AND REMOVED WHAT APPEARED TO BE BLACK HAIR FROM THE WOUND BED. WOUNDS ARE HEALING, ROLAND-WOUND WITH NEW EPITHELIUM. WOUND BEDS ARE RED, MOIST. APPLIED SKIN PREP TO ROLAND-WOUND. APPLIED AQUACEL AG TO WOUND BEDS AND SECURED WITH EXUDERM. LEFT HIP: HEALING STAGE 2 PRESSURE ULCER, MULTIPLE SITES OF ULCERATION. CLUSTERED MEASURE 2.5X6.5X0.1. CLEANSED WOUND AND REMOVED WHAT APPEARED TO BE BLACK HAIR FROM THE WOUND BED. WOUNDS ARE HEALING, ROLAND-WOUND WITH NEW EPITHELIUM. WOUND BEDS ARE RED, MOIST. APPLIED SKIN PREP TO ROLAND-WOUND. APPLIED AQUACEL AG TO WOUND BEDS AND SECURED WITH EXUDERM THEN TEGADERM. LEFT BUTTOCK: HEALING STAGE 3 PRESSURE ULCER, APPEARS MUCH IMPROVED SINCE LAST ADMISSION. WOUND MEASURES 0.3X3X0.3. RED, GRANULAR WOUND BED. ROLAND-WOUND IS PINK WITH NEW EPITHELIUM. THERE IS A SMALL ULCERATION PROXIMAL TO THIS ONE, MEASURING 0.2X0.3X0.1. ROLAND-WOUND IS PINK WITH NEW EPITHELIUM. CLEANSED ALL WITH WOUND CLEANSER, PATTED DRY. APPLIED SKIN PREP. APPLIED AQUACEL AG TO WOUND BED AND SECURED WITH TEGADERM. RIGHT LOWER ABDOMINAL QUADRANT, UNDERNEATH ABDOMINAL FOLD: PARTIAL THICKNESS UCLERATION. PINK, MOIST WOUND BED, FRIABLE. SANGUINEOUS DRAINAGE AFTER CLEANSING. APPLIED AQAUCEL AG AND SECURED WITH BORDERED FOAM. ENCOURAGED PATIENT TO EAT WELL AND KEEP OFF THE ULCERATIONS, COMMUNICATED UNDERSTANDING. RECOMMEND BARIATRIC PRASANNA [id number] STATES SHE HATES THE OTHER MATTRESS. ENCOURAGED HER TO USE TO ASSIST WITH WOUND HEALING ENCOURAGE GOOD NUTRTITION/HYDRATION TIGHT BLOOD GLUCOSE CONTROL.
--- NOTE | 2018-04-03 14:20 | NUR ---
Pt is A&O. Known to this CM from previous hospital stay. Pt resides at home with her and gdtr. Pt uses an electric wc and slide board for transfers. Pt stated that she had HH set up at her last dc with [facility], but they declined it when HH called to set up visit stating "I was doing so good at home, that I didn't think that I needed it." Hx of skilled at [facility] and [facility] [place]. Pt anticipates dc tomorrow. Pt stated that she does not think that she will need HH at dc. Following.
[2018-04-03 15:27] VITALS: BP 155/42
--- NOTE | 2018-04-03 18:19 | NUR ---
vss,cardiac monitoring in place with no changes.pt remains on 2l o2 nc.pt progressing towards goals.no c/o pain.pt has slept most of the shift.iv patent and saline locked.pt worked with physical therapy.hourly rounding completed for pt safety.call light and fall precautions in place.will continue to monitor for duration of shift.
[2018-04-03 19:30] VITALS: BP 145/50
[2018-04-04] VITALS (7 sets, daily range): BP systolic 120–162; BP diastolic 53–70
--- NOTE | 2018-04-04 06:46 | NUR ---
RECEIVED REPORT AND ASSUMED CARE AT 1900. VSS. CARDIAC MONITORING IN PLACE. PT DENIES ANY COMPLAINTS OF PAIN. ASSESSMENT COMPLETED CHARTED. POSITION CHANGED EVERY TWO HOURS. DISCUSSED PLAN OF CARE WITH PT. VERBALIZED UNDERSTANDING. PT ON BEDREST, RA. MEDICATION ADMIN PER EMAR. BED LOCKED IN LOWEST POSITION, CALL LIGHT WITHIN REACH. BED ALARM ON. HOURLY ROUNDING COMPLETED AND ALL NEEDS MET. WILL CONTINUE TO MONITOR
[2018-04-04 09:49] LABS: URINE BILIRUBIN NEGATIVE (Negative); URINE BLOOD 3+ (Negative); URINE CLARITY CLEAR; URINE COLOR YELLOW; URINE GLUCOSE-RANDOM NEGATIVE (Negative); URINE KETONES NEGATIVE (Negative); URINE PROTEIN NEGATIVE (Negative); URINE SPECIFIC GRAVITY <= 1.005 (1.005-1.030); URINE UROBILINOGEN 0.2 E.U./dl (0.2-1.0)
[2018-04-04 09:50] LABS: URINE LEUKOCYTES-REFLEX 3+ (Negative); URINE NITRITE-REFLEX POSITIVE (Negative)
[2018-04-04 09:56] LABS: SQUAMOUS 4-10 Moderate /LPF (0-3)
[2018-04-04 09:57] LABS: CASTS None Seen /LPF (None Seen); CRYSTALS None Seen /LPF (None Seen); MUCUS 0-3 Light strn/LPF (None Seen); URINE RBC 3-10 Few /HPF (0-2)
--- NOTE | 2018-04-04 11:32 | NUR ---
REC'D REPORT FROM [facility] AT 0730. A & O X4. 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 ON LOW AIR LOSS MATTRESS. CALL LIGHT IN REACH. ASSESSMENT COMPLETE DOCUMENTED. MEDS PER OCT.
--- NOTE | 2018-04-04 12:07 | EKG ---
[place] [address] ELECTROCARDIOGRAM REPORT Name: HEATHER DIEHL Room: [address] ADM IN .R.#: [id number] Admission: 04/02/18 Attend Phys: Belle Gillespie Discharge: Date of : 53 Report #: [id number] THIS REPORT FOR: //name// [facility] Test Date: 2018-04-04 Test Time: 08:18:58 Pat Name: HEATHER DIEHL Department: Room: [address] Gender: F Development Administrator: : 1955 Requested By: Rene Robles Order Number: [id number] Reading MD: Enrique Rodrigues Measurements Intervals [place] Rate: 69 P: 12 GA: 198 QRS: -1 QRSD: 90 T: 190 QT: 338 QTc: 362 Interpretive Statements Sinus rhythm Low voltage, precordial leads Borderline T abnormalities, diffuse leads Compared to ECG 04/02/2018 22:32:58 T-wave abnormality now present First degree AV block no longer present ST (T wave) deviation no longer present Electronically Signed On 04-04-2018 12:07:27 CDT by Enrique Rodrigues [email or web address] <ELECTRONICALLY SIGNED> By: Enrique Rodrigues MD, FACC 04/04/18 1207 7 7 Enrique Rodrigues MD, FAC /EPI
--- NOTE | 2018-04-04 20:02 | NUR ---
DISCHARGE EDUCATION GIVEN TO PATIENT AND FAMILY. REVIEWED MEDICATIONS. CALLED DR. SPANN FOR CLARIFICATION ABOUT HYDROCHLOROTHIZIDE ORDER WHICH PT STATES WAS NOT ONE OF HER HOME MEDICATIONS. MED WAS REMOVED FROM DC ORDER. PT ASKED WHERE TO GET SUPPLIES FOR WOUND CARE. PT WAS OFFERED HOME HEALTH BY ASSIGNMENT AGENT BUT REFUSED. EDUCATION GIVEN THAT WOUND CARE SUPPLIES CAN BE SUPPLIED THROUGH HOME HEALTH. PT REFUSED AND STATES WE WILL JUST BUY THE SUPPLIES AFTER WE ARE HOME. DISCUSSED TYPE OF DRESSINGS USED. PT'S SPOUSE STATES HE IS FAMILIAR WITH WOUND CARE AND HAS BEEN CARING FOR PT'S WOUNDS. HE EXPRESSED CONFIDENCE THAT HE HAS RECEIVED THE EDUCATION NECESSARY TO CARE FOR PT'S WOUNDS. PT TO BE TRANSPORTED HOME BY SPOUSE AND PERSONAL VEHICLE. PT LEFT UNIT VIA WC AND NURSING STAFF ASSISTANCE.
--- NOTE | 2018-04-06 08:25 | CON ---
[address] [address] CONSULTATION Name: HEATHER DIEHL Room: [address] IN M.R.#: [id number] Admission: 04/02/18 Attend Phys: Belle Gillespie Discharge: 04/04/18 Date of : 53 Report #: [id number] THIS REPORT FOR: //name// CC: Rene Amato DATE OF SERVICE: 04/03/2018 HISTORY OF PRESENT ILLNESS: The patient is a 63-year-old white female who I was asked to see in the hospital today after she was noted to have bradycardia. The history was obtained from the patient as well as some old records. She currently is followed by my partner, Dr. Jeronimo Verma. She has had multiple hospitalizations here at [facility]. She has a long history of diabetes. She is also morbidly obese, standing 5 feet 7 inches. There is no weight on the chart, but she apparently weighs over 250 pounds. She is not very active and basically uses a wheelchair. Apparently last year, she slipped and fractured her ankle and required surgery. She was in rehab for a couple of months. She was admitted to [facility] in November. She was noted to be in atrial fibrillation. She was seen by my partner, Dr. Verma. She underwent a YIMI. This showed no thrombus. Ejection fraction was over 65%, left atrial enlargement. No PFO. She was then cardioverted to sinus rhythm. She actually saw Dr. Verma in the Cardiology Clinic in February. He had placed her on propafenone, metoprolol and Pradaxa. She was in sinus rhythm at that time. He made no changes in her medications. Apparently, she was admitted last week with urinary tract infection, was found to have evidence of C. difficile colitis. She was in the hospital for a week. She just went home a week ago. However, recently she has felt fatigued, no energy and no appetite. She was having a hard time getting out of bed. An ambulance was called and she was noted to be bradycardic. She was admitted for further evaluation and treatment. She denied any syncope, chest pain, increased shortness of breath, increasing edema. PAST MEDICAL HISTORY: Significant for arthroscopic knee repair, cataract extraction, cholecystectomy, hysterectomy, hypertension, diabetes, sleep apnea. MEDICATIONS: Pradaxa, Neurontin, insulin, Synthroid, lisinopril, metformin, metoprolol, omeprazole, Mysoline, propafenone, Topamax, Ventolin inhaler. ALLERGIES: SHE HAS INTOLERANCE TO BACTRIM. FAMILY HISTORY: Positive for heart disease. SOCIAL HISTORY: She is . She and her live in [place]. Quit smoking years ago, rarely drinks alcohol. REVIEW OF SYSTEMS: She has sleep apnea, but could not tolerate CPAP[place] [address] CONSULTATION Name: SHANITAHEATHER KWOK Room: [address]#: [id number] Admission: 04/02/18 Attend Phys: Belle Gillespie Discharge: 04/04/18 Date of : 53 Report #: [id number] history of asthma. She had a peptic ulcer. No liver disease. She has had kidney stone. No cancer, no psychiatric illness. No chronic skin condition. Does wear glasses. PHYSICAL EXAMINATION: GENERAL: Revealed a morbidly obese, elderly female, lying in bed. She appeared in no distress. VITAL SIGNS: Revealed a blood pressure of 100/60, pulse initially 40. She is afebrile. HEENT: She is anicteric. Mucous membranes are moist. NECK: Veins difficult to assess due to obesity. CHEST: Clear to auscultation. CARDIOVASCULAR: Regular rate and rhythm. ABDOMEN: She had a very large protuberant abdominal apron that is soft. EXTREMITIES: Have trace edema. Dorsalis pedis pulse cannot be palpated. SKIN: Cool and dry. NEUROLOGIC: Nonfocal. LABORATORY DATA: ECG showed a junctional rhythm with no P waves, nonspecific ST-segment changes. Today, she appears to be in a sinus rhythm. Her workup, BUN 11, creatinine 1.3. In November, her TSH was 2.9. Her white blood cell count 8.4, hemoglobin 12.7. IMPRESSION AND RECOMMENDATIONS: 1. Junctional rhythm, suspect secondary to metoprolol. I will discontinue it at this time. 2. History of atrial fibrillation. The patient is anticoagulated with Pradaxa. I will continue Rythmol. 3. Hypertension. Blood pressure appears controlled at this time. 4. Diabetes. 5. Morbid obesity. 6. Sleep apnea. 7. Recent Clostridium difficile colitis. 8. Previous ankle fracture. <ELECTRONICALLY SIGNED> By: Rene Robles MD, FACC 04/06/18 0825 1145 2016Rene Robles MD, FACC /nt
== END 2018-04-04 15:00 | disposition home or self-care (01) | DRG 682 ==
LOC: M.ERS 20:57 → M.TBA-ER 22:37 → M.2W 22:37
PROVIDERS: Internal Medicine; Personal Emergency Response Attendant; ADMIT Internal Medicine
DX: N17.0 Acute kidney failure with tubular necrosis (principal); L89.323 Pressure ulcer of left buttock, stage 3; I44.2 Atrioventricular block, complete; Z68.43 Body mass index [BMI] 50.0-59.9, adult; I50.32 Chronic diastolic (congestive) heart failure; I13.0 Hypertensive heart and chronic kidney disease with heart failure and stage 1 through stage 4 chronic kidney disease, or unspecified chronic kidney disease; A04.72 Enterocolitis due to Clostridium difficile, not specified as recurrent; T44.7X5A Adverse effect of beta-adrenoreceptor antagonists, initial encounter; I49.9 Cardiac arrhythmia, unspecified; J44.9 Chronic obstructive pulmonary disease, unspecified; L89.222 Pressure ulcer of left hip, stage 2; L89.212 Pressure ulcer of right hip, stage 2; N18.2 Chronic kidney disease, stage 2 (mild); G47.33 Obstructive sleep apnea (adult) (pediatric); G25.0 Essential tremor; I48.0 Paroxysmal atrial fibrillation; E55.9 Vitamin D deficiency, unspecified; E53.8 Deficiency of other specified B group vitamins; E11.22 Type 2 diabetes mellitus with diabetic chronic kidney disease; E66.01 Morbid (severe) obesity due to excess calories; Z98.41 Cataract extraction status, right eye; Z87.891 Personal history of nicotine dependence; Z90.49 Acquired absence of other specified parts of digestive tract; Y92.89 Other specified places as the place of occurrence of the external cause; Z91.14 Patient's other noncompliance with medication regimen; Z87.81 Personal history of (healed) traumatic fracture; Z90.710 Acquired absence of both cervix and uterus; Z79.4 Long term (current) use of insulin; Z79.899 Other long term (current) drug therapy; Z88.1 Allergy status to other antibiotic agents; Z88.2 Allergy status to sulfonamides; Z82.49 Family history of ischemic heart disease and other diseases of the circulatory system; Z80.8 Family history of malignant neoplasm of other organs or systems

== ENCOUNTER 2018-05-15 03:28 | Observation (INO) | payer MEDICARE, MEDICAID ==
[~2018-05-15] VITALS: Ht 167.6 cm; Wt 145.1 kg
[~2018-05-15 03:28] MED LIST changes: +MYSOLINE50 MG PO
[2018-05-15 03:29] VITALS: BP 113/51
[2018-05-15] MEDS ORDERED: NORVASC2.5 MG (03:53)
[2018-05-15 04:01] LABS: HEMATOCRIT 37.6 % (37.0-47.0); HEMOGLOBIN 12.3 gm/dL (12.0-15.0); MCH 30.3 pg (26.0-34.0); MCHC 32.7 g/dL (28.0-37.0); MCV 92.7 fL (80.0-100.0); MPV 10.6 fl. (7.2-11.1); NUCLEATED RBCS 0 /100WBC; PLATELET COUNT* 183 thou/uL (150-400); RBC 4.06 mil/uL (4.20-5.00); RDW-CV 14.5 % (10.5-14.5)
[2018-05-15 04:17] LABS: ANION GAP 5 mmol/L (7-16); BUN 21 mg/dL (7-18); CALCIUM 8.2 mg/dL (8.5-10.1); CHLORIDE 95 mmol/L (98-107); CO2 30 mmol/L (21-32); CREATININE 1.3 mg/dL (0.6-1.3); GLUCOSE 70 mg/dL (70-99); INR 1.2; POTASSIUM 3.5 mmol/L (3.5-5.1); SODIUM 130 mmol/L (136-145)
[2018-05-15 04:28] LABS: ALBUMIN 2.9 g/dL (3.4-5.0); ALKALINE PHOSPHATASE 82 U/L (46-116); NT-PRO BRAIN NAT PEPTIDE 96 pg/mL (<300); SGOT 26 U/L (15-37); SGPT 16 U/L (30-65); TOTAL BILIRUBIN 0.3 mg/dL (<0.1-1.0); TOTAL PROTEIN 6.8 g/dL (6.4-8.2); TROPONIN-I LEVEL <0.06 ng/mL (<0.06)
[2018-05-15 05:06] LABS: URINE BILIRUBIN NEGATIVE (Negative); URINE BLOOD NEGATIVE (Negative); URINE CLARITY CLEAR; URINE COLOR YELLOW; URINE GLUCOSE-RANDOM NEGATIVE (Negative); URINE KETONES NEGATIVE (Negative); URINE LEUKOCYTES-REFLEX 1+ (Negative); URINE NITRITE-REFLEX NEGATIVE (Negative); URINE PROTEIN NEGATIVE (Negative); URINE UROBILINOGEN 0.2 E.U./dl (0.2-1.0)
[2018-05-15 05:46] LABS: ABSOLUTE BASOPHILS 0.2 thou/uL (0.0-0.2); ABSOLUTE EOSINOPHILS 0.6 thou/uL (0.0-0.7); ABSOLUTE LYMPHOCYTES 1.7 thou/uL (0.8-5.3); ABSOLUTE MONOCYTES 0.4 thou/uL (0.0-1.2); ABSOLUTE NEUTROPHILS 5.2 thou/uL (1.6-8.1)
[2018-05-15 05:47] LABS: ANISOCYTOSIS 1+; PLATELET ESTIMATE ADEQUATE; POIKILOCYTOSIS 1+
[2018-05-15 05:54] LABS: SQUAMOUS 0-3 Few /LPF (0-3); URINE WBC-REFLEX 6-15 Few /HPF (0-5); WBC CLUMPS Few (None Seen)
[2018-05-15 05:55] LABS: BACTERIA-REFLEX >30 Many /HPF (None Seen); CASTS None Seen /LPF (None Seen); CRYSTALS None Seen /LPF (None Seen); MUCUS 4-6 Moderate strn/LPF (None Seen); URINE RBC 3-10 Few /HPF (0-2)
[2018-05-15 07:40] VITALS: BP 99/50
[2018-05-15 09:02] VITALS: BP 120/54
--- NOTE | 2018-05-15 09:46 | NUR ---
PATIENT CAME TO THE FLOOR FROM THE ER VIA CART IN STABLE CONDITION. MOVED PATIENT TO BED FROM CART VIA EASY SLIDER. SOME PAIN IN RECTUM AND BACK FROM FALL. ADMISSION ASSESSMENT AND ROOM ORIENTATION DONE. QUESTIONS ANSWERED FOR PATIENT, CALL LIGHT IS IN REACH, WILL CONTINUE TO MONITOR.
--- NOTE | 2018-05-15 10:57 | EKG ---
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 [employer] Reconditioning: GERALD : 1955 Requested By: Stella Gomez Order Number: [id number] MD: Yahir Wylie Measurements Intervals [place] Rate: 79 P: 30 MS: 207 QRS: 7 QRSD: 97 T: 49 QT: 426 QTc: 489 Interpretive Statements Sinus rhythm Borderline prolonged QT interval Compared to ECG 04/04/2018 08:18:58 T-wave abnormality no longer present Electronically Signed On 05-15-2018 10:57:16 CDT by Yahir Wylie [email or web address] <ELECTRONICALLY SIGNED> By: Yahir Wylie MD, [facility] 05/15/18 1057 0401 0401 Yahir Wylie MD, [facility] /EPI
--- NOTE | 2018-05-15 12:42 | NUR ---
SW met with pt to complete initial assessment, introduce self, and SW role. Pt alert, oriented, talkative. Pt explained in detail the happenings leading up to her hospitalization. Pt explained that she and her usually do well with pt care at home. Pt has all needed DME and also felt she was/is doing well enough that she does not need HH services. Pt has hx of SNF at [facility] and [facility] [place]. Pt had [facility] eval pt for services but apparently also concluded pt did not need HH servics at that time according to previous note. Pt did not express any dc needs or concerns at this time. SW to continue to follow to assist with safe dc planning.
--- NOTE | 2018-05-15 13:41 | NUR ---
WOUND CARE NOTE: CONSULT RECEIVED FOR WOUNDS. PATIENT HAS A LACERATION TO HER ANAL AREA WHICH WAS ADDRESSED PER SURGERY, SUTURES IN PLACE. PATIENT DOES HAVE BUTTOCK/COCCYX PARTIAL THICKNESS BREAKDOWN. MOIST, PALE WOUND BEDS. PATIENT ALSO HAS MULTIPLE SCABBED AREAS TO BILATERAL LOWER EXTREMITIES STATES SOME ARE FROM HER CAT AND A DOG. THESE APPEAR DRY AND STABLE. PATIENT ALSO HAS MULTIPLE PARTIAL THICKNESS ULCERATIONS TO THE LEFT HIP AND RIGHT SIDE/HIP. THESE APPEAR HEALING. ALSO HAS PARTIAL THICKNESS ULCERATIONS UNDERNEATH RIGHT SIDE OF ABDOMINAL FOLD. RECOMMEND TURN Q2 HOURS GENTLY REPOSITION-BE CAUTIOUS OF SUTURES TO ANAL AREA TIGHT BLOOD GLUCOSE CONTROL CLEANSE UNDER ABDOMINAL FOLD AND GROIN FOLDS WELL THEN APPLY INTERDRY AG WILL SIGN OFF AT THIS TIME, PLEASE RECONSULT IF NEEDED
[2018-05-15 15:30] VITALS: BP 137/50
--- NOTE | 2018-05-15 18:36 | NUR ---
PATIENT IS ALERT AND ORINETED SINCE COMING TO THE FLOOR, SOME PAIN THAT IS CONTROLLED WITH ORAL PAIN MEDICATIONS. HAM IS IN PLACE DRAINING WELL. THE WOUND ON RECTUM HAS NOT DRAINED MUCH TODAY. IV IN RIGHT HAND WORKS WELL FOR ANTIBIOTICS BUT CAUSES SOME DISCOMFORT WHEN FLUSHING. PATIENT HAS BEEN TURNED FREQUENTLY AND REPOSITIONED. CALL LIGHT IS IN REACH WILL CONTINUE TO MONITOR.
[2018-05-15 19:40] VITALS: BP 116/45
[2018-05-16] VITALS: BP 128/53
[2018-05-16 04:00] VITALS: BP 114/52
--- NOTE | 2018-05-16 05:00 | NUR ---
PATIENT REMAINS ALERT AND ORIENTED X4 THROUGHOUT SHIFT. VITAL SIGNS STABLE ON ROOM AIR. IV PATENT IN THE RIGHT HAND SALINE LOCKED. PAIN MANAGED WITH PO MEDICATION PER ORDERS. DRESSING TO BUTTOCK CLEAN, DRY AND INTACT. ASSISTED TO REPOSITION EVERY TWO HOURS. HAM PATENT AND DRAINING YELLOW URINE, SECURED WITH STAT LOCK. TOLERATING DIET. RESTING COMFORTABLY THROUGHOUT SHIFT. HOURLY ROUNDING COMPLETE. BED ALARM IN PLACE. CALL LIGHT WITHIN REACH. NURSING WILL CONTINUE TO MONITOR.
[2018-05-16 08:00] VITALS: BP 108/86
--- NOTE | 2018-05-16 11:05 | NUR ---
ORDERS NOTED FOR DC. DISCUSSED WITH [facility]. PT NOT ABLE TO TOLERATE SITTING UP FOR TRANSPORT HOME AND PAINFUL. SET UP AMBULANCE FOR 1PM. PT CALLED SPOUSE TO NOTIFY
[2018-05-16] MEDS ORDERED: FLAGYL500 MG PO ×3 (12:28→12:41)
[2018-05-16 12:52] VITALS: BP 108/86
--- NOTE | 2018-05-16 14:12 | NUR ---
ASSUMED CARE THIS AM, NO DISTRESS NOTED, VSS, DENIES PAIN, SEE ASSESSMENT FOR DETAILS. DISCHARGE ORDERS RECEIVED, IV ACCESS REMOVED WITHOUT INCIDENT, HAM CATHETER REMOVED WITHOUT INCIDENT, PATIENT CHELY PROCEDURE WELL. DISCHARGE INSTRUCTIONS, F/U APPTS, PRESCRIPTIONS DISCUSSED WITH AND GIVEN TO PATIENT DENIES QUESTIONS AT THIS TIME. PERSONAL EFFECTS GATHERED, ACCOUNTED FOR, IN COMPANY OF PATIENT. PATIENT TRANSPORTED VIA STRETCHER W/ [facility] AMBULANCE DUE TO LACERATION LOCATION, CONDITION STABLE.
--- NOTE | 2018-05-18 07:55 | CON ---
[address] [address] CONSULTATION Name: HEATHER DIEHL Room: [address] Jonnie Romero#: [id number] Admission: 05/15/18 Attend Phys: Belle Gillespie Discharge: 05/16/18 Date of : 53 Report #: [id number] THIS REPORT FOR: //name// CC: Rene Amato DATE OF SERVICE: 05/15/2018 INFECTIOUS DISEASE CONSULTATION ATTENDING PHYSICIAN: Dr. Chance. REASON FOR EVALUATION: Ongoing treatment for C. diff colitis, started on ongoing tapering dose as well as probably urinary tract infection, admitted with fall and anal laceration. HISTORY OF PRESENT ILLNESS: Chart reviewed, patient examined. This is a 63-year-old, with known COPD, debility, essentially primarily wheelchair bound. She attempted to stand. She states her right knee gave way. She fell striking the front wheel of her wheelchair. The squad was called. She was brought in and confirmed to have an anal laceration, which was sewn for primary closure. In addition to that, urinalysis noted moderate pyuria, marked bacteriuria, although on questioning, he denies any particular symptoms including specific to urination. She has not had fevers. Other issue was perhaps she was hypoglycemic as well. She does have a cough and audible wheezing. She states this was clearly worse when she is outside. She notes neighbors are harvesting their huggins. She was empirically started on ceftriaxone, given a dose of vancomycin as well as Levaquin. She is not encephalopathic. Denies significant gastrointestinal-related complaints. ALLERGIES: LISTED TO BACTRIM. CURRENT MEDICATIONS: Include ascorbic acid, lisinopril, levothyroxine, amiodarone, apixaban, insulin, primidone, ceftriaxone, acetaminophen, oxybutynin, ipratropium and albuterol inhaler. PAST MEDICAL HISTORY: As noted above, diabetes mellitus type 2, insulin requiring; hypertension, COPD, morbid obesity, renal insufficiency, has congestive heart failure with history of cardiomyopathy, essential tremor, hysterectomy and cholecystectomy. SOCIAL HISTORY: Former smoker. No ethanol. FAMILY HISTORY: Noncontributory. REVIEW OF SYSTEMS: [place] [address] CONSULTATION Name: HEATHER DIEHL Room: [address] Nick#: [id number] Admission: 05/15/18 Attend Phys: Belle Gillespie Discharge: 05/16/18 Date of : 53 Report #: [id number] PHYSICAL EXAMINATION: GENERAL: She appears somewhat chronically ill, undernourished. She is pleasant and cooperative. She is not encephalopathic. She is obese. VITAL SIGNS: Temperature 97.9, pulse 74, respirations 20, blood pressure 137/50. SKIN: Warm, dry, no rashes. HEENT: Nasal cannula oxygen in place. NECK: Supple. LUNGS: Got bilateral wheezes, not infrequent coughing, although it is nonproductive. I do not appreciate any significant rhonchi. HEART: Regular. I do not appreciate any murmur. ABDOMEN: Obese, soft, nontender. GENITOURINARY: Deferred. RECTAL: Deferred. LABORATORY DATA: CT imaging was otherwise unremarkable. Urinalysis as described above, negative nitrite, 1+ leukocytes, few wbc's clumps, 6-15 white cells, greater than 30 bacteria. CBC: White count of 8.0, H and H 12.3 and 37.6, platelets of 183. Electrolytes: Sodium 130, potassium 3.5, chloride 95, bicarbonate is 30, anion gap of 5, BUN and creatinine 21 and 1.3, albumin of 2.9, total protein 6.8. Lactic acid of 2.4. ASSESSMENT: Anal tear, this was closed primarily, evidence of no particular infectious component at this point. Secondly, has moderate pyuria, marked bacteriuria without symptoms. I think I will discontinue may well be asymptomatic, could be concerned about an exacerbation of her Clostridium difficile colitis is virtually at the end of treatment at this point. We will continue the oral vancomycin once daily basis. We will see how she does clinically. I will try to get the [place] out as soon as possible. <ELECTRONICALLY SIGNED> By: Gopal Borja MD 05/18/18 0755 1659 [id number] Borja MD /nt
== END 2018-05-16 14:16 | disposition home or self-care (01) ==
LOC: M.ERS 03:28 → M.3W 06:47 → M.TBA-ER 06:47 → M.3W 06:47
PROVIDERS: Emergency Medicine; ADMIT Internal Medicine
DX: S31.831A Laceration without foreign body of anus, initial encounter (principal); N39.0 Urinary tract infection, site not specified; J44.9 Chronic obstructive pulmonary disease, unspecified; I13.0 Hypertensive heart and chronic kidney disease with heart failure and stage 1 through stage 4 chronic kidney disease, or unspecified chronic kidney disease; E11.22 Type 2 diabetes mellitus with diabetic chronic kidney disease; N18.2 Chronic kidney disease, stage 2 (mild); I50.32 Chronic diastolic (congestive) heart failure; E11.649 Type 2 diabetes mellitus with hypoglycemia without coma; I48.91 Unspecified atrial fibrillation; A04.72 Enterocolitis due to Clostridium difficile, not specified as recurrent; V00.811A Fall from moving wheelchair (powered), initial encounter; Y93.89 Activity, other specified; Y92.009 Unspecified place in unspecified non-institutional (private) residence as the place of occurrence of the external cause; Y99.8 Other external cause status; Z79.4 Long term (current) use of insulin; Z98.890 Other specified postprocedural states; Z90.710 Acquired absence of both cervix and uterus; Z87.891 Personal history of nicotine dependence; Z88.1 Allergy status to other antibiotic agents

== ENCOUNTER 2019-01-14 03:03 | Inpatient (IN) | payer MEDICARE, MEDICAID ==
[~2019-01-14] VITALS: Ht 170.2 cm; Wt 133.6 kg
[2019-01-14] VITALS (7 sets, daily range): BP systolic 110–167; BP diastolic 49–65
[~2019-01-14 03:03] MED LIST changes: +FLAGYL500 MG PO; +NORVASC2.5 MG
[2019-01-14 03:28] LABS: ABSOLUTE BASOPHILS 0.1 thou/uL (0.0-0.2); ABSOLUTE EOSINOPHILS 0.7 thou/uL (0.0-0.7); ABSOLUTE LYMPHOCYTES 0.8 thou/uL (0.8-5.3); ABSOLUTE MONOCYTES 0.3 thou/uL (0.0-1.2); ABSOLUTE NEUTROPHILS 4.8 thou/uL (1.6-8.1); BASOPHILS 0.8 %; EOSINOPHILS 10.1 %; HEMATOCRIT 38.4 % (37.0-47.0); HEMOGLOBIN 12.6 gm/dL (12.0-15.0); MCH 29.9 pg (26.0-34.0); MCHC 32.9 g/dL (28.0-37.0); MPV 10.4 fl. (7.2-11.1); NUCLEATED RBCS 0 /100WBC; PLATELET COUNT* 129 thou/uL (150-400); POLYS 72.1 %; RBC 4.22 mil/uL (4.20-5.00); RDW-CV 13.2 % (10.5-14.5); WBC 6.7 thou/uL (4.0-11.0)
[2019-01-14 03:39] LABS: ANION GAP 8 mmol/L (7-16); BUN 20 mg/dL (7-18); CALCIUM 8.5 mg/dL (8.5-10.1); CHLORIDE 96 mmol/L (98-107); CO2 25 mmol/L (21-32); CREATININE 1.1 mg/dL (0.6-1.3); GLUCOSE 188 mg/dL (70-99); POTASSIUM 4.2 mmol/L (3.5-5.1); SODIUM 129 mmol/L (136-145)
[2019-01-14 03:43] LABS: INR 1.1; PROTIME 11.3 Seconds (9.20-11.50)
[2019-01-14 03:46] LABS: BE -6.4 mmol/L (-2 to +3)
[2019-01-14 03:48] LABS: pH 7.237 (7.340-7.450)
[2019-01-14 03:49] LABS: PO2 58.9 mmHg (75.0-100.0)
[2019-01-14 03:50] LABS: ALBUMIN 3.3 g/dL (3.4-5.0); ALKALINE PHOSPHATASE 112 U/L (46-116); LIPASE 54 U/L (73-393); NT-PRO BRAIN NAT PEPTIDE 263 pg/mL (<300); SGOT 17 U/L (15-37); SGPT 25 U/L (30-65); TOTAL BILIRUBIN 0.2 mg/dL (<0.1-1.0); TOTAL PROTEIN 7.2 g/dL (6.4-8.2); TROPONIN-I LEVEL <0.06 ng/mL (<0.06)
[2019-01-14] MEDS ORDERED: ROBAXIN 750 MG750 MG PO (06:13)
[2019-01-14] MEDS ORDERED: OMEPRAZOLE 20 M20 M1 (06:13)
[2019-01-14] MEDS ORDERED: NEURONTIN 300300 M1 PO (06:14)
[2019-01-14] MEDS ORDERED: LEVOXYL75 MCG PO (07:43)
[2019-01-14 11:06] LABS: GLYCOHEMOGLOBIN (HGB A1C) 6.5 % (4.8-5.6)
--- NOTE | 2019-01-14 13:02 | EKG ---
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 : 1955 Requested By: Clary Morin Order Number: [id number] MD: Jeronimo Verma Measurements Intervals [place] Rate: 82 P: 128 MN: 201 QRS: -14 QRSD: 100 T: 147 QT: 375 QTc: 438 Interpretive Statements Sinus rhythm Low voltage, extremity leads Nonspecific T abnormalities, lateral leads Baseline wander in lead(s) V4 Compared to ECG 05/15/2018 04:01:38 Low QRS voltage now present T-wave abnormality now present Electronically Signed On 01-14-2019 13:02:18 CDT by Jeronimo Verma [email or web address] <ELECTRONICALLY SIGNED> By: Jeronimo Verma MD, FAC 01/14/19 1302 0 0 Jeronimo Verma MD, [facility] /EPI
[2019-01-15] VITALS: BP 154/64
[2019-01-15 00:40] LABS: URINE BILIRUBIN NEGATIVE (Negative); URINE BLOOD 1+ (Negative); URINE CLARITY CLEAR; URINE COLOR YELLOW; URINE GLUCOSE-RANDOM NEGATIVE (Negative); URINE KETONES NEGATIVE (Negative); URINE LEUKOCYTES-REFLEX NEGATIVE (Negative); URINE NITRITE-REFLEX NEGATIVE (Negative); URINE PROTEIN NEGATIVE (Negative); URINE UROBILINOGEN 0.2 E.U./dl (0.2-1.0)
[2019-01-15 04:00] VITALS: BP 131/47
[2019-01-15 07:40] VITALS: BP 143/68
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
[2019-01-15 11:43] VITALS: BP 135/49
--- NOTE | 2019-01-15 13:20 | 2DMMODE ---
[place] [address] 2 D/M-MODE ECHOCARDIOGRAM Name: SHANITAHEATHER Gunnar Room: [address] IN [facility]#: [id number] Admission: 01/14/19 Attend Phys: Hao Cui MD Discharge: Date of : 53 Date of Service: 01/15/19 1320 Report #: [id number] THIS REPORT FOR: //name// APPROVED REPORT Study performed: 01/15/2019 10:45:31 EXAM: Comprehensive 2D, Doppler, and color-flow Echocardiogram Patient Location: In-Patient Room #: [facility] Status: routine BSA: 2.44 HR: 86 bpm BP: 143/68 mmHg Rhythm: NSR Other Information Study Quality: Good Indications COPD Dyspnea Chest Pain 2D Dimensions IVSd: 10.06 (7-11mm) LVOT Diam: 22.05 (18-24mm) LVDd: 48.53 mm PWd: 11.01 (7-11mm) Ascending Ao: 34.34 (22-36mm) LVDs: 25.77 (25-40mm) Aortic Root: 30.81 mm Volumes Left Atrial Volume (Systole) LA ESV Index: 22.60 mL/m2 Aortic Valve AoV Peak Sonny.: 1.36 m/s AO Peak Gr.: 7.43 mmHg LVOT Max P.22 mmHg AO Mean Gr.: 3.79 mmHg LVOT Mean P.40 mmHg LVOT Max V: 1.03 m/s AO V2 VTI: 30.05 cm LVOT Mean V: 0.73 m/s SUKI (VTI): 3.09 cm2 LVOT V1 VTI: 24.32 cm Mitral Valve E/A Ratio: 1.08 [place] [address] 2 D/M-MODE ECHOCARDIOGRAM Name: HEATHER DIEHL Room: [address] IN ..#: [id number] Admission: 01/14/19 Attend Phys: Hao Cui MD Discharge: Date of : 53 Date of Service: 01/15/19 1320 Report #: [id number] MV Decel. Time: 261.79 ms MV E Max Sonny.: 0.97 m/s MV PHT: 75.92 ms MVA (PHT): 2.90 cm2 TDI E/Lateral E': 8.08 Lateral E' Sonny.: 0.12 m/s Pulmonary Valve PV Peak Sonny.: 1.10 m/s PV Peak Gr.: 4.81 mmHg Tricuspid Valve RAP Estimate: 5.00 mmHg TR Peak Gr.: 32.16 mmHg RVSP: 37.00 mmHg PA Pressure: 37.00 mmHg Left Ventricle The left ventricle is normal size. There is normal LV segmental wall motion. There is normal left ventricular wall thickness. Left ventricular systolic function is normal. The left ventricular ejection fraction is within the normal range. LVEF is 60-65%. The left ventricular diastolic function is normal. Right Ventricle The right ventricle is normal size. The right ventricular systolic function is normal. Atria The left atrium size is normal. The right atrium size is normal. Aortic Valve The aortic valve is normal in structure. No aortic regurgitation is present. There is no aortic valvular stenosis. Mitral Valve The mitral valve is normal in structure. There is no mitral valve regurgitation noted. No evidence of mitral valve stenosis. Tricuspid Valve The tricuspid valve is normal in structure. Trace tricuspid regurgitation. estimate pa pressure 40 mm Hg Pulmonic Valve Pulmonic valve is not well visualized. There [place] [address] 2 D/M-MODE ECHOCARDIOGRAM Name: HEATHER DIEHL Room: [address]#: [id number] Admission: 01/14/19 Attend Phys: Hao Cui MD Discharge: Date of : 53 Date of Service: 01/15/19 1320 Report #: [id number] regurgitation. Great Vessels The aortic root is normal in size. IVC is normal in size and collapses >50% with inspiration. Pericardium There is no pericardial effusion. <Conclusion> LVEF is 60-65%. Trace tricuspid regurgitation. estimate pa pressure 40 mm Hg <ELECTRONICALLY SIGNED> By: Rene Robles MD, FACC 01/15/19 1320 19 19 Rene Robles MD, FACC /INF
[2019-01-15] MEDS ORDERED: PREDNISONE 10 M10 M1 PO (15:17)
[2019-01-15] MEDS ORDERED: MUCINEX600 MG PO (15:18)
[2019-01-15 15:22] VITALS: BP 135/49
== END 2019-01-15 16:00 | disposition home or self-care (01) | DRG 189 ==
LOC: M.ERS 03:03 → M.TBA-ER 04:15 → M.2W 04:15
PROVIDERS: Personal Emergency Response Attendant; ADMIT Family Medicine
DX: J96.22 Acute and chronic respiratory failure with hypercapnia (principal); G93.41 Metabolic encephalopathy; J44.1 Chronic obstructive pulmonary disease with (acute) exacerbation; E87.1 Hypo-osmolality and hyponatremia; N17.9 Acute kidney failure, unspecified; Z68.42 Body mass index [BMI] 45.0-49.9, adult; I50.32 Chronic diastolic (congestive) heart failure; J45.901 Unspecified asthma with (acute) exacerbation; I13.0 Hypertensive heart and chronic kidney disease with heart failure and stage 1 through stage 4 chronic kidney disease, or unspecified chronic kidney disease; R65.10 Systemic inflammatory response syndrome (SIRS) of non-infectious origin without acute organ dysfunction; F11.20 Opioid dependence, uncomplicated; A04.72 Enterocolitis due to Clostridium difficile, not specified as recurrent; E87.2 Acidosis; J96.21 Acute and chronic respiratory failure with hypoxia; N18.2 Chronic kidney disease, stage 2 (mild); I48.0 Paroxysmal atrial fibrillation; K21.9 Gastro-esophageal reflux disease without esophagitis; E03.9 Hypothyroidism, unspecified; E11.22 Type 2 diabetes mellitus with diabetic chronic kidney disease; Z90.710 Acquired absence of both cervix and uterus; E66.01 Morbid (severe) obesity due to excess calories; Z90.49 Acquired absence of other specified parts of digestive tract; Z87.81 Personal history of (healed) traumatic fracture; Z98.41 Cataract extraction status, right eye; Z88.2 Allergy status to sulfonamides; Z88.8 Allergy status to other drugs, medicaments and biological substances; Z79.01 Long term (current) use of anticoagulants; Z82.49 Family history of ischemic heart disease and other diseases of the circulatory system; Z83.49 Family history of other endocrine, nutritional and metabolic diseases; Z79.82 Long term (current) use of aspirin; Z79.899 Other long term (current) drug therapy; Z91.19 Patient's noncompliance with other medical treatment and regimen

== ENCOUNTER → 2019-01-26 | Outpatient (CLI) | payer MEDICARE, MEDICAID ==
[~2019-01-26] MED LIST changes: +LEVOXYL75 MCG PO; +MUCINEX600 MG PO; +OMEPRAZOLE 20 M20 M1; +PREDNISONE 10 M10 M1 PO; +ROBAXIN 750 MG750 MG PO
== END ==
LOC: M.MRI 07:56
DX: S83.242A Other tear of medial meniscus, current injury, left knee, initial encounter (principal); E03.9 Hypothyroidism, unspecified; J43.1 Panlobular emphysema; I10 Essential (primary) hypertension; G44.229 Chronic tension-type headache, not intractable; X58.XXXA Exposure to other specified factors, initial encounter; Y93.89 Activity, other specified; Y92.89 Other specified places as the place of occurrence of the external cause; Y99.8 Other external cause status

== ENCOUNTER 2019-03-17 19:13 | Inpatient (IN) | payer MEDICARE, MEDICAID ==
[~2019-03-17] VITALS: Ht 167.6 cm; Wt 137.0 kg
[2019-03-17 19:13] VITALS: BP 164/74
[2019-03-17 19:44] LABS: HEMATOCRIT 41.3 % (37.0-47.0); HEMOGLOBIN 13.7 gm/dL (12.0-15.0); MCH 29.6 pg (26.0-34.0); MCHC 33.1 g/dL (28.0-37.0); MCV 89.5 fL (80.0-100.0); MPV 10.6 fl. (7.2-11.1); NUCLEATED RBCS 0 /100WBC; PLATELET COUNT* 152 thou/uL (150-400); RBC 4.61 mil/uL (4.20-5.00); RDW-CV 13.8 % (10.5-14.5); WBC 15.2 thou/uL (4.0-11.0)
[2019-03-17 19:47] LABS: ANION GAP 11 mmol/L (7-16); BUN 19 mg/dL (7-18); CALCIUM 9.2 mg/dL (8.5-10.1); CHLORIDE 95 mmol/L (98-107); CO2 26 mmol/L (21-32); CREATININE 1.3 mg/dL (0.6-1.3); GLUCOSE 164 mg/dL (70-99); POTASSIUM 3.7 mmol/L (3.5-5.1); SODIUM 132 mmol/L (136-145)
[2019-03-17 19:58] LABS: ALBUMIN 3.3 g/dL (3.4-5.0); ALKALINE PHOSPHATASE 120 U/L (46-116); NT-PRO BRAIN NAT PEPTIDE 861 pg/mL (<300); SGOT 33 U/L (15-37); SGPT 40 U/L (30-65); TOTAL BILIRUBIN 0.3 mg/dL (<0.1-1.0); TOTAL PROTEIN 7.8 g/dL (6.4-8.2); TROPONIN-I LEVEL <0.06 ng/mL (<0.06)
[2019-03-17 19:59] LABS: ABSOLUTE EOSINOPHILS 0.3 thou/uL (0.0-0.7); ABSOLUTE LYMPHOCYTES 0.2 thou/uL (0.8-5.3); ABSOLUTE MONOCYTES 0.8 thou/uL (0.0-1.2); PLATELET ESTIMATE ADEQUATE
[2019-03-17 20:03] LABS: URINE BILIRUBIN NEGATIVE (Negative); URINE BLOOD 3+ (Negative); URINE CLARITY CLEAR; URINE COLOR YELLOW; URINE GLUCOSE-RANDOM NEGATIVE (Negative); URINE KETONES NEGATIVE (Negative); URINE LEUKOCYTES-REFLEX 1+ (Negative); URINE NITRITE-REFLEX NEGATIVE (Negative); URINE PROTEIN 2+ (Negative); URINE SPECIFIC GRAVITY 1.015 (1.005-1.030); URINE UROBILINOGEN 0.2 E.U./dl (0.2-1.0)
--- NOTE | 2019-03-17 20:06 | NUR ---
REPORTED TO [facility] ABOUT [facility] LIVING CONDITION INCLUDING ANTS SPREAD ON BODY, COCKROACHES IN THE HOME FECES ON THE ROSS, WOUND LOCATED ON SELF, UNKEPT CONDITIONS, AND UNKEPT HEALTH I SPOKE WITH BRODERICK THROUGH [facility].
[2019-03-17 20:09] LABS: CASTS None Seen /LPF (None Seen); CRYSTALS None Seen /LPF (None Seen); SQUAMOUS 0-3 Few /LPF (0-3); URINE RBC 0-2 Rare /HPF (0-2); URINE WBC-REFLEX 6-15 Few /HPF (0-5)
[2019-03-17 22:46] VITALS: BP 145/85
[2019-03-17 23:30] VITALS: BP 191/69
[2019-03-18] MEDS ORDERED: TRAMADOL 50 MG50 MG PO (00:08)
[2019-03-18 04:20] VITALS: BP 140/71
[2019-03-18 08:00] VITALS: BP 139/52
--- NOTE | 2019-03-18 08:31 | NUR ---
Pt is A&O. Resides at home with her and granddtr, known to this CM from previous hospital stay. Pt is independent, assists as needed. Pt uses a slide board for transfers and an electric wc for mobility. Hx of [facility]. Hx of skilled at [facility] and [facility]. Consult recieved to check cost of Bhavin, nurse CM to cost. No home o2. Goal is home at mt, CM following for disposition.
[2019-03-18 11:35] LABS: ABSOLUTE LYMPHOCYTES 0.6 thou/uL (0.8-5.3); ABSOLUTE MONOCYTES 0.3 thou/uL (0.0-1.2); ABSOLUTE NEUTROPHILS 5.9 thou/uL (1.6-8.1); BASOPHILS 0.4 %; EOSINOPHILS 0.3 %; HEMATOCRIT 33.4 % (37.0-47.0); LYMPHOCYTES 8.8 %; MCHC 33.8 g/dL (28.0-37.0); MCV 88.5 fL (80.0-100.0); MONOCYTES 4.9 %; MPV 10.1 fl. (7.2-11.1); NUCLEATED RBCS 0 /100WBC; PLATELET COUNT* 108 thou/uL (150-400); POLYS 85.6 %; RBC 3.78 mil/uL (4.20-5.00); RDW-CV 13.5 % (10.5-14.5); WBC 6.9 thou/uL (4.0-11.0)
[2019-03-18 11:37] LABS: HEMOGLOBIN 11.3 gm/dL (12.0-15.0)
[2019-03-18 11:42] VITALS: BP 148/52
--- NOTE | 2019-03-18 12:07 | EKG ---
[place] [address] ELECTROCARDIOGRAM REPORT Name: SHANITAHEATHER KWOK Room: [address] ADM IN ..#: [id number] Admission: 03/17/19 Attend Phys: Robert Caputo MD Discharge: Date of : 53 Report #: [id number] THIS REPORT FOR: //name// [facility] ED Test Date: 2019-03-17 Test Time: 19:25:37 Pat Name: HEATHER DIEHL Department: Room: [facility] Gender: F Cruise Consultant: WILBERT : 1955 Requested By: Williams Moffett Order Number: [id number] MD: Yahir Wylie Measurements Intervals [place] Rate: 106 P: 47 NM: 189 QRS: 0 QRSD: 93 T: 33 QT: 338 QTc: 449 Interpretive Statements Sinus tachycardia Compared to ECG 01/14/2019 03:11:44 Sinus rate has increased T-wave abnormality no longer present Electronically Signed On 03-18-2019 12:07:13 CDT by Yahir Wylie [email or web address] <ELECTRONICALLY SIGNED> By: Yahir Wylie MD, [facility] 03/18/19 1202 1925 24 Yahir Wylie MD, [facility] /EPI
[2019-03-18 12:08] LABS: ALBUMIN 2.3 g/dL (3.4-5.0); CALCIUM 8.4 mg/dL (8.5-10.1); POTASSIUM 3.3 mmol/L (3.5-5.1); TOTAL BILIRUBIN 0.3 mg/dL (<0.1-1.0); TOTAL PROTEIN 5.9 g/dL (6.4-8.2)
--- NOTE | 2019-03-18 15:17 | EKG ---
[place] [address] ELECTROCARDIOGRAM REPORT Name: SHANITAHEATHER Gunnar Room: [address] ADM IN M.R.#: [id number] Admission: 03/17/19 Attend Phys: Robert Caputo MD Discharge: Date of : 53 Report #: [id number] THIS REPORT FOR: //name// [facility] Test Date: 2019-03-18 Test Time: 12:50:45 Pat Name: HEATHER DIEHL Department: Room: [address] Gender: F Mica Washer Gluer: MEGHARHONDA : 1955 Requested By: Bryant Amato Order Number: [id number] Harriett RIOS: Yahir Wylie Measurements Intervals [place] Rate: 79 P: [place]: QRS: 6 QRSD: 94 T: 13 QT: 409 QTc: 469 Interpretive Statements sinus rhythm with pac's Abnormal R-wave progression, early transition Compared to ECG 03/17/2019 19:25:37 Sinus tachycardia no longer present Electronically Signed On 03-18-2019 15:17:44 CDT by Yahir Wylie [email or web address] <ELECTRONICALLY SIGNED> By: Yahir Wylie MD, [facility] 03/18/19 1517 1250 1250 Yahir Wylie MD, [facility] /EPI
[2019-03-18 16:00] VITALS: BP 114/49
--- NOTE | 2019-03-18 16:35 | NUR ---
ASSUMED PT CARE AT 0800, AOX4, BEDREST. O2 SAT 90'S RA. PT COMPLAINS OF KNEE PAIN. PT HAS HX OF FALL, ON FALL PRECAUTION. REDNESS ON THE BOTTOM NOTED, Q2 TURN. PT/OT ON BOARD. PT FOR ACCU CHECK, HAS HAM CATH. TRACING SR ON MONITOR, HAD AN EPISODE OF AFIB, EKG DONE, CARDIOLOGY CONSULTED, DR NOTIFIED. PT REMOVED FROM CDIFF ISOLATION PER DR'S CALL. NO LOOSE STOOL. VSS, AM ASSESSMENT CHARTED. MEDS GIVEN PER OCT. CALL LIGHT WITHIN REACH. WILL CONTINUE TO MONITOR.
[2019-03-18 20:00] VITALS: BP 131/58
[2019-03-19] VITALS: BP 125/53
[2019-03-19 04:00] VITALS: BP 116/40
[2019-03-19 07:55] VITALS: BP 158/61
--- NOTE | 2019-03-19 07:58 | NUR ---
ASSUMED PT CARE AT 1930. ASSESSMENT COMPLETED CHARTED. ABLE TO MAKE NEEDS KNOWN. P8ROOCV COMPLETED CHARTED. NO C/O PAIN OR DISCOMFORT. VSS. PT RESTING IN BED AT THIS TIME. WILL CONTINUE TO MONITOR.
--- NOTE | 2019-03-19 10:24 | NUR ---
spoke with Yulia Crabtree from [facility], she informed of a hotline placed on Pt. Per [facility], Pt is A&O, so there is nothing that they can really do other than offer resources. [facility] wants to be contacted at co with name of HH agency, if Pt accepts HH at co. Yulia:[phone]
[2019-03-19 11:09] VITALS: BP 127/61
[2019-03-19] MEDS ORDERED: NORVASC2.5 MG PO (11:24)
[2019-03-19] MEDS ORDERED: CEFDINIR300 MG PO (11:31)
[2019-03-19 11:32] VITALS: BP 127/61
--- NOTE | 2019-03-19 12:20 | NUR ---
Nutrition: Pt admitted with UTI. Used to weigh 340#, but has been gradually losing wt with diet education from RD here. Currently, she is 302#. CHO controlled diet. Pt was busy with therapies at time of visit. Consider low risk. GOALS: continued gradual wt loss, good BG control, good hydration for UTI.
--- NOTE | 2019-03-19 14:18 | NUR ---
EXPERIMENTAL PLASTICS FABRICATOR SPOKE TO THE PATIENT TO DISCUSS DISCHARGE PLANNING AND HH AT D/C. PATIENT DECLINED HH DESPITE EDUCATION. D/C BAREBACK RIDER INFORMED THE PATIENT THAT IF SHE CHANGED HER MIND AND DECIDED THAT SHE WANTED HH TO INFORM CM. PHYSICIAN INFORMED. CM WILL REMAIN AVAILABLE TO ASSIST AND FOLLOW NEEDED.
--- NOTE | 2019-03-19 14:28 | NUR ---
PATIENT UP TO CHAIR THIS AM, NO DIFFICULTY NOTED WITH SBA. FATOUMATA DC'D PER ORDERS, PATIENT VOIDED AND HAD A BM VIA BSC. PATIENT TRACING SR WITH EPISODES OF CONTROLLED AFIBB. IV ABX INFUSED THIS AM. DC'D FOR DISCHARGE. PATIENT VERBALIZES UNDERSTANDING OF PAPERWORK AND SCRIPT. PATIENT TAKEN OUT VIA WHEELCHAIR WITH ALL BELONGINGS.
== END 2019-03-19 14:30 | disposition home or self-care (01) | DRG 871 ==
LOC: M.ERS 19:13 → M.2W 21:41 → M.TBA-ER 21:41 → M.2W 23:02
PROVIDERS: Emergency Medicine Emergency Medical Services; Internal Medicine; ADMIT Internal Medicine
DX: A41.9 Sepsis, unspecified organism (principal); G93.41 Metabolic encephalopathy; N39.0 Urinary tract infection, site not specified; I50.32 Chronic diastolic (congestive) heart failure; Z68.42 Body mass index [BMI] 45.0-49.9, adult; I13.0 Hypertensive heart and chronic kidney disease with heart failure and stage 1 through stage 4 chronic kidney disease, or unspecified chronic kidney disease; J44.9 Chronic obstructive pulmonary disease, unspecified; E66.01 Morbid (severe) obesity due to excess calories; N18.9 Chronic kidney disease, unspecified; I48.0 Paroxysmal atrial fibrillation; E11.22 Type 2 diabetes mellitus with diabetic chronic kidney disease; N18.2 Chronic kidney disease, stage 2 (mild); Z79.4 Long term (current) use of insulin; Z90.710 Acquired absence of both cervix and uterus; Z98.41 Cataract extraction status, right eye; Z90.49 Acquired absence of other specified parts of digestive tract; Z87.81 Personal history of (healed) traumatic fracture; Z88.2 Allergy status to sulfonamides; Z88.8 Allergy status to other drugs, medicaments and biological substances; Z82.49 Family history of ischemic heart disease and other diseases of the circulatory system; Z87.891 Personal history of nicotine dependence

== ENCOUNTER → 2020-03-08 | Outpatient (CLI) | payer MEDICARE ==
[~2020-03-08] MED LIST changes: +CEFDINIR300 MG PO; +TRAMADOL 50 MG50 MG PO
== END ==
LOC: M.RAD 02-29 12:09
PROVIDERS: ATTEND Family Medicine
DX: Z12.31 Encounter for screening mammogram for malignant neoplasm of breast (principal); Z78.0 Asymptomatic menopausal state

== ENCOUNTER → 2020-06-02 | Outpatient (CLI) | payer MEDICARE, MEDICAID | LOC: M.ULTRA 10:38 | PROVIDERS: ATTEND Family Medicine | DX: R79.89 Other specified abnormal findings of blood chemistry (principal); R16.0 Hepatomegaly, not elsewhere classified ==

== ENCOUNTER 2021-02-04 19:25 | Inpatient (IN) | payer MEDICARE, MEDICAID ==
[~2021-02-04] VITALS: Ht 170.2 cm; Wt 131.5 kg
--- NOTE | ~2021-02-04 | EMS ---
[facility] [address] [facility] [place] [address] EMS Patient Care Report Name: HEATHER DIEHL Room: [address] IN ..#: [id number] Admission: 02/05/21 Attend Phys: Belle Gillespie Discharge: Date of : 53 Report #: [id number] THIS REPORT FOR: //name// Report Transmitted: 02/05/2021 06:12 EMS Care Summary [facility] Incident [id number] @ 02/04/2021 18:28 Incident Location [address] [address] Patient HEATHER DIEHL Female, 65 Years 1955 Patient Address [address] [address] Patient History Chronic Obstructive Pulmonary Disease (COPD),Diabetes,Atrial Fibrillation,Sepsis,Myocardial Infarction (CO), Chief Complaint General weakness Disposition Transported No Lights/Canmer Dispatch Reason No Other Appropriate Choice Transported To [facility] Narrative Dispatched to a 65 y/o female with general weakness. On arrival the pt is sitting in a recliner, the front door wide open, no A/C. The though is A&Ox4 but seems to be in a dazed state, slow talking and appears simply tired. We begin obtaining vitals and history. Her explains to us when this occurred, which was 02 Feb 2021 after [facility] [address] [place] [address] EMS Patient Care Report Name: HEATHER DIEHL Room: [address] IN M.R.#: [id number] Admission: 02/05/21 Attend Phys: Belle Gillespie Discharge: Date of : 53 Report #: [id number] she was released from a rehab facility for recovery on her left broken ankle. He said she's been in this condition since then. Last oral intake was 10-15 min prior to arrival and they both stated that she was drinking water regularly. He proceeds on to tell us that she has a bed sore between her buttocks about 1"-1.5" deep and about a 4"-5" [place]; I was unable to confirm and check out the site due to the pt being morbidly obese and could not move. We bring the stair chair in do to tight space and only 2 of us to move her, we attempted without success as she was unable able to help herself in any way. But we did move her forward a little that I noticed blood where she was sitting, it was much but maybe 1/2cc bright red with what appeared to be old blood stains around it on a pillow or cushion. At this point I called for additional manpower. Others arrived mins later, and we got her on the stair chair but that wasn't going to work, again she was nothing but weight, still alert and aware of what was going on. We manage to get the cot inside and transferred her to it. Once on the ambulance the monitor was re-attached and a 4-lead was obtained. Oxygen was administered via NC. During transport she was telling her history and what has happened in the past couple months. One thing that stood out was when she mentioned she was septic a couple months ago and as also had that bed sore for awhile and that it had already been cleaned or something, I couldn't quite understand what she said. In conclusion I feel it could be a number of things being the underlying issue such as sepsis; I didn't recognize any indications of cardiac related issues nor diabetes which the pt has history of. Dehydration could be a possibility but not indicated at this time. Transported to [facility] Initial Vitals @19:17P: 65,BP: 107/64,GCS: 15,SpO2: 98, @19:12P: 64,R: 12,BP: 90/57,GCS: 15,SpO2: 99,Revised Trauma: 12, @18:32P: 67,R: 14,BP: 102/37,GCS: 15,Glucose: 177,SpO2: 97,Revised Trauma: 12, Assessments @18:31MENTAL:Person Oriented,Time Oriented,Place Oriented,Event Oriented,SKIN:No Abnormalities,HEENT:Head/Face: No Abnormalities,LUNG SOUNDS:ABDOMEN:PELVIS//GI:EXTREMITIES:PULSE:NEURO:@18:59MENTAL:Person Oriented,Time Oriented,Event Oriented,Place Oriented,SKIN:HEENT:LUNG SOUNDS:ABDOMEN:PELVIS//GI:EXTREMITIES:PULSE:NEURO: Impression Fatigue Timeline 18:24,Call Received 18:28,Dispatched 18:29,[place] [address] EMS Patient Care Report Name: HEATHER DIEHLMarlo Room: [address] IN M.R.#: [id number] Admission: 02/05/21 Attend Phys: Belle Gillespie Discharge: Date of : 53 Report #: [id number] 18:30,Initial Responder On Scene 18:30,On Scene 18:31,At Patient 18:32,BP: 102/37 M,PULSE: 67,RR: 14 R,SPO2: 97 Ox,ETCO2: ,B,PAIN: ,GCS: 15, 18:59,Depart Scene 19:12,BP: 90/57 M,PULSE: 64,RR: 12 R,SPO2: 99 Ox,ETCO2: ,BG: ,PAIN: ,GCS: 15, 19:17,BP: 107/64 M,PULSE: 65,RR: R,SPO2: 98 Ox,ETCO2: ,BG: ,PAIN: ,GCS: 15, 19:22,At Destination 19:24,Transfer Patient 19:38,Call Closed 19:54,In District Disclaimer v1.1 Copyright 2020 [employer] This EMS Care Summary contains data elements from the applicable legal record (which may be displayed differently). It is designed to provide pertinent information for the following purposes: continuity of care, clinical quality, and state data reporting. The complete legal record is available to ED staff and administrators of the receiving hospital in [employer] Patient Tracker. All data is provided "as is."
[2021-02-04 19:29] VITALS: BP 133/38
[2021-02-04 20:09] LABS: ABSOLUTE BASOPHILS 0.1 thou/uL (0.0-0.2); ABSOLUTE EOSINOPHILS 0.3 thou/uL (0.0-0.7); ABSOLUTE LYMPHOCYTES 1.5 thou/uL (0.8-5.3); ABSOLUTE MONOCYTES 0.8 thou/uL (0.0-1.2); ABSOLUTE NEUTROPHILS 6.3 thou/uL (1.6-8.1); BASOPHILS 0.6 %; EOSINOPHILS 3.8 %; HEMOGLOBIN 10.9 gm/dL (12.0-15.0); LYMPHOCYTES 16.9 %; MCHC 34.2 g/dL (28.0-37.0); MCV 90.4 fL (80.0-100.0); MONOCYTES 8.4 %; MPV 9.9 fl. (7.2-11.1); NUCLEATED RBCS 0 /100WBC; PLATELET COUNT* 216 thou/uL (150-400); POLYS 70.3 %; RBC 3.53 mil/uL (4.20-5.00)
[2021-02-04 20:17] LABS: CALCIUM 8.3 mg/dL (8.5-10.1); CREATININE 1.2 mg/dL (0.6-1.3); POTASSIUM 4.5 mmol/L (3.5-5.1)
[2021-02-04 20:22] LABS: ALBUMIN 2.5 g/dL (3.4-5.0); MAGNESIUM 1.7 mg/dL (1.8-2.4); TOTAL BILIRUBIN 0.1 mg/dL (<0.1-1.0); TOTAL PROTEIN 6.6 g/dL (6.4-8.2)
[2021-02-04 20:25] LABS: URINE BILIRUBIN NEGATIVE (Negative); URINE BLOOD 2+ (Negative); URINE CLARITY CLOUDY; URINE COLOR YELLOW; URINE GLUCOSE-RANDOM NEGATIVE (Negative); URINE KETONES NEGATIVE (Negative); URINE NITRITE-REFLEX NEGATIVE (Negative); URINE PROTEIN TRACE (Negative); URINE SPECIFIC GRAVITY 1.015 (1.005-1.030); URINE UROBILINOGEN 0.2 E.U./dl (0.2-1.0)
[2021-02-04 20:26] LABS: URINE LEUKOCYTES-REFLEX 3+ (Negative)
[2021-02-04 20:37] LABS: CASTS None Seen /LPF (None Seen); CRYSTALS None Seen /LPF (None Seen); MUCUS 0-3 Light strn/LPF (None Seen); SQUAMOUS 4-10 Moderate /LPF (0-3); URINE RBC 3-10 Few /HPF (0-2); URINE WBC-REFLEX >25 Many /HPF (0-5)
[2021-02-04 20:48] LABS: BE -4.7 mmol/L (-2 to +3); PCO2 37.2 mmHg (35.0-45.0); PO2 70.7 mmHg (75.0-100.0); pH 7.355 (7.340-7.450)
[2021-02-05 00:44] VITALS: BP 146/37
[2021-02-05 01:30] VITALS: BP 188/72
[2021-02-05 08:39] VITALS: BP 151/47
--- NOTE | 2021-02-05 10:51 | EKG ---
[place] [address] ELECTROCARDIOGRAM REPORT Name: HEATHER DIEHLMarlo Room: [address] ADM IN ..#: [id number] Admission: 02/05/21 Attend Phys: Bryant Amato Discharge: Date of : 53 Date of Service: 02/04/211944 Report #: [id number] THIS REPORT FOR: //name// [facility] ED Test Date: 2021-02-04 Test Time: 19:45:39 Pat Name: HEATHER DIEHL Department: Room: [facility] Gender: F Peg Driver: KAMILAH : 1955 Requested By: Clary Morin Order Number: [id number] MD: Yahir Wylie Measurements Intervals [place] Rate: 65 P: 28 HI: 212 QRS: -9 QRSD: 105 T: 86 QT: 444 QTc: 462 Interpretive Statements Sinus rhythm Borderline prolonged HI interval Diffuse nonspecific ST-T abnormalities Compared to ECG 03/18/2019 12:50:[address]-T abnormalities have developed Electronically Signed On 02-05-2021 10:51:14 CDT by Yahir Wylie [email or web address] <ELECTRONICALLY SIGNED> By: Yahir Wylie MD, FACC 02/05/21 1051 44 44 Yahir Wylie MD, FAC /EPI
[2021-02-05 16:49] VITALS: BP 159/53
[2021-02-05 20:00] VITALS: BP 162/66
[2021-02-06 04:46] LABS: ABSOLUTE EOSINOPHILS 0.2 thou/uL (0.0-0.7); ABSOLUTE LYMPHOCYTES 1.2 thou/uL (0.8-5.3); ABSOLUTE MONOCYTES 0.3 thou/uL (0.0-1.2); ABSOLUTE NEUTROPHILS 2.6 thou/uL (1.6-8.1); BASOPHILS 0.5 %; EOSINOPHILS 5.1 %; HEMATOCRIT 26.8 % (37.0-47.0); LYMPHOCYTES 26.9 %; MCH 30.4 pg (26.0-34.0); MCHC 33.6 g/dL (28.0-37.0); MCV 90.3 fL (80.0-100.0); MONOCYTES 7.5 %; MPV 9.6 fl. (7.2-11.1); NUCLEATED RBCS 0 /100WBC; RBC 2.97 mil/uL (4.20-5.00); RDW-CV 13.8 % (10.5-14.5); WBC 4.4 thou/uL (4.0-11.0)
[2021-02-06 04:49] LABS: PLATELET COUNT* 133 thou/uL (150-400)
[2021-02-06 04:57] LABS: CALCIUM 7.6 mg/dL (8.5-10.1); CREATININE 0.7 mg/dL (0.6-1.3); POTASSIUM 3.5 mmol/L (3.5-5.1)
[2021-02-06 08:00] VITALS: BP 136/51
[2021-02-06 15:58] VITALS: BP 151/68
[2021-02-07 04:10] LABS: ABSOLUTE EOSINOPHILS 0.3 thou/uL (0.0-0.7); ABSOLUTE LYMPHOCYTES 0.9 thou/uL (0.8-5.3); ABSOLUTE MONOCYTES 0.3 thou/uL (0.0-1.2); BASOPHILS 0.6 %; EOSINOPHILS 6.4 %; HEMATOCRIT 28.4 % (37.0-47.0); HEMOGLOBIN 9.6 gm/dL (12.0-15.0); MCH 30.8 pg (26.0-34.0); MCV 90.7 fL (80.0-100.0); MONOCYTES 7.6 %; MPV 9.6 fl. (7.2-11.1); NUCLEATED RBCS 0 /100WBC; PLATELET COUNT* 138 thou/uL (150-400); POLYS 65.4 %; RBC 3.13 mil/uL (4.20-5.00); RDW-CV 13.4 % (10.5-14.5); WBC 4.6 thou/uL (4.0-11.0)
[2021-02-07 04:16] LABS: CALCIUM 7.7 mg/dL (8.5-10.1); CREATININE 0.7 mg/dL (0.6-1.3); POTASSIUM 3.5 mmol/L (3.5-5.1)
[2021-02-07 07:50] VITALS: BP 163/59
[2021-02-07 16:13] VITALS: BP 174/73
[2021-02-07 20:00] VITALS: BP 167/50
[2021-02-08 07:45] VITALS: BP 161/82
[2021-02-08 07:53] LABS: HEMATOCRIT 27.2 % (37.0-47.0); HEMOGLOBIN 9.2 gm/dL (12.0-15.0); MCH 31.1 pg (26.0-34.0); MCHC 33.9 g/dL (28.0-37.0); MCV 91.7 fL (80.0-100.0); MPV 9.8 fl. (7.2-11.1); RBC 2.96 mil/uL (4.20-5.00); RDW-CV 13.8 % (10.5-14.5); WBC 4.1 thou/uL (4.0-11.0)
[2021-02-08 09:11] LABS: CALCIUM 7.5 mg/dL (8.5-10.1); CREATININE 0.7 mg/dL (0.6-1.3); POTASSIUM 3.9 mmol/L (3.5-5.1)
[2021-02-08 15:37] VITALS: BP 173/76
[2021-02-09 06:31] LABS: HEMATOCRIT 27.3 % (37.0-47.0); HEMOGLOBIN 9.4 gm/dL (12.0-15.0); MCH 31.1 pg (26.0-34.0); MCHC 34.3 g/dL (28.0-37.0); MCV 90.6 fL (80.0-100.0); MPV 9.1 fl. (7.2-11.1); RBC 3.01 mil/uL (4.20-5.00); WBC 3.6 thou/uL (4.0-11.0)
[2021-02-09 06:48] LABS: CALCIUM 7.7 mg/dL (8.5-10.1); CREATININE 0.6 mg/dL (0.6-1.3)
[2021-02-09 07:05] VITALS: BP 142/84
[2021-02-09 16:00] VITALS: BP 184/83
[2021-02-09 19:40] VITALS: BP 166/80
[2021-02-10 07:10] VITALS: BP 160/76
[2021-02-10 09:24] LABS: HEMATOCRIT 31.3 % (37.0-47.0); HEMOGLOBIN 10.5 gm/dL (12.0-15.0); MCH 30.3 pg (26.0-34.0); MCHC 33.4 g/dL (28.0-37.0); MCV 90.7 fL (80.0-100.0); MPV 9.1 fl. (7.2-11.1); RBC 3.45 mil/uL (4.20-5.00); RDW-CV 13.7 % (10.5-14.5); WBC 3.6 thou/uL (4.0-11.0)
[2021-02-10 09:34] LABS: CALCIUM 8.3 mg/dL (8.5-10.1); CREATININE 0.7 mg/dL (0.6-1.3); POTASSIUM 4.2 mmol/L (3.5-5.1)
[2021-02-10 16:11] VITALS: BP 179/95
[2021-02-10 21:20] VITALS: BP 192/102
[2021-02-11 00:20] VITALS: BP 167/76
[2021-02-11 04:14] VITALS: BP 146/47
[2021-02-11 05:22] LABS: HEMATOCRIT 29.5 % (37.0-47.0); HEMOGLOBIN 9.9 gm/dL (12.0-15.0); MCH 31.2 pg (26.0-34.0); MCHC 33.5 g/dL (28.0-37.0); MCV 92.9 fL (80.0-100.0); RBC 3.17 mil/uL (4.20-5.00); RDW-CV 13.7 % (10.5-14.5); WBC 4.7 thou/uL (4.0-11.0)
[2021-02-11 05:32] LABS: CALCIUM 7.7 mg/dL (8.5-10.1); CREATININE 0.6 mg/dL (0.6-1.3); POTASSIUM 4.1 mmol/L (3.5-5.1)
[2021-02-11 08:03] VITALS: BP 169/71
[2021-02-11 11:28] VITALS: BP 160/79
[2021-02-11 15:42] VITALS: BP 169/76
[2021-02-12 00:24] VITALS: BP 156/69
[2021-02-12 04:22] LABS: HEMATOCRIT 30.1 % (37.0-47.0); HEMOGLOBIN 10.2 gm/dL (12.0-15.0); MCH 30.7 pg (26.0-34.0); MCHC 33.9 g/dL (28.0-37.0); MCV 90.6 fL (80.0-100.0); MPV 8.9 fl. (7.2-11.1); RBC 3.32 mil/uL (4.20-5.00); RDW-CV 13.6 % (10.5-14.5); WBC 4.3 thou/uL (4.0-11.0)
[2021-02-12 04:31] LABS: CALCIUM 7.8 mg/dL (8.5-10.1); CREATININE 0.8 mg/dL (0.6-1.3)
[2021-02-12 04:51] VITALS: BP 136/64
[2021-02-12] MEDS ORDERED: CEFDINIR300 MG PO (08:43)
[2021-02-12] MEDS ORDERED: OMEPRAZOLE 20 M20 M1 PO (08:43)
[2021-02-12] MEDS ORDERED: NYAMYC15 GM TOP (08:43)
--- NOTE | 2021-02-12 10:22 | EKG ---
[place] [address] ELECTROCARDIOGRAM REPORT Name: HEATHER DIEHLMarlo Room: [address] ADM IN ..#: [id number] Admission: 02/05/21 Attend Phys: Bryant Amato Discharge: Date of : 53 Date of Service: 02/10/21 2256 Report #: [id number] THIS REPORT FOR: //name// [facility] Test Date: 2021-02-10 Test Time: 22:56:29 Pat Name: HEATHER DIEHL Department: Room: [facility] Gender: F Business Specialist: BXIONG : 1955 Requested By: Natalia Moreno Order Number: [id number] Harriett MD: Rene Robles Measurements Intervals [place] Rate: 104 P: [place]: QRS: -23 QRSD: 73 T: 6 QT: 350 QTc: 461 Interpretive Statements sinus tachycardia nonspecific t wave changes Borderline left axis deviation Low voltage, precordial leads Compared to ECG 02/04/2021 19:45:39 Low QRS voltage now present Sinus rhythm no longer present Electronically Signed On 02-12-2021 10:22:20 CDT by Rene Robles [email or web address] <ELECTRONICALLY SIGNED> By: Rene Robles MD, FACC 02/12/21 1022 2256 2256 Rene Robles MD, FAC /EPI
[2021-02-12 12:00] VITALS: BP 177/60
--- NOTE | 2021-02-12 14:18 | EKG ---
[place] [address] ELECTROCARDIOGRAM REPORT Name: HEATHER DIEHL ADDISON Room: [address] ADM IN .R.#: [id number] Admission: 02/05/21 Attend Phys: Bryant Amato Discharge: Date of : 53 Date of Service: 02/10/21 2255 Report #: [id number] THIS REPORT FOR: //name// [facility] Test Date: 2021-02-10 Test Time: 22:55:30 Pat Name: HEATHER DIEHL Department: Room: [address] Gender: F Wire Web Worker: BXIONG : 1955 Requested By: Bryant Amato Order Number: [id number] Harriett MD: Rene Robles Measurements Intervals [place] Rate: 82 P: -6 CA: 156 QRS: -18 QRSD: 80 T: -12 QT: 496 QTc: 580 Interpretive Statements Sinus rhythm Borderline left axis deviation Low voltage, precordial leads Borderline T abnormalities, diffuse leads Prolonged QT interval Compared to ECG 02/04/2021 19:45:39 Low QRS voltage now present Prolonged QT interval now present Electronically Signed On 02-12-2021 14:18:07 CDT by Rene Robels [email or web address] <ELECTRONICALLY SIGNED> By: Rene Robles MD, [facility] 02/12/21 1418 2255 Rene Robles MD, [facility] /EPI
[2021-02-12 16:00] VITALS: BP 163/68
[2021-02-12 20:34] VITALS: BP 159/75
[2021-02-13] VITALS: BP 149/58
[2021-02-13 08:00] VITALS: BP 153/66
[2021-02-13 08:30] VITALS: BP 149/58
[2021-02-13] MEDS ORDERED: ASA81BEC PO (08:32)
--- NOTE | 2021-02-13 09:12 | CON ---
[address] [address] CONSULTATION Name: HEATHER DIEHL Room: [address] IN .R.#: [id number] Admission: 02/05/21 Attend Phys: Belle Gillespie Discharge: Date of : 53 Report #: [id number] THIS REPORT FOR: cc: José Luis Sierra Adam J DO Blick, David R. MD [facility] ~ DOC #: [id number] cc: DO Rene Stephenson MD [facility] DATE OF CONSULTATION: 02/12/2021 CARDIOLOGY CONSULTATION HISTORY OF PRESENT ILLNESS: The patient is a 65-year-old white female who I was asked to see in the hospital today after an episode of atrial fibrillation. The patient has a long past medical history. She has history of arthritis and is basically wheelchair bound. She has a history of atrial fibrillation and apparently has been cardioverted twice in the past. She has been cared for by my partner, Dr. Verma. She has been taking flecainide. She last saw Dr. Verma in August this year. The patient was on Pradaxa in the past, but apparently a year ago had a Watchman device placed and is no longer on anticoagulation. She recently apparently fell out of her wheelchair and fractured her leg. She required surgery on her leg. She was discharged to a fdc. Recently, she was sent home and developed a urinary tract infection. She was admitted here to [place] a week ago. She denies any chest pain, shortness of breath, palpitations or lightheadedness. PAST MEDICAL HISTORY: She has had repair of a knee, cataract extraction, cholecystectomy. She has a history of tremor and had a brain stimulator implanted in the past, subsequently removed. She has a history of hysterectomy. She has a history of diabetes and hypertension. CURRENT MEDICATIONS: Include aspirin, flecainide, albuterol inhaler for asthma, amlodipine for blood pressure, Neurontin, she is on insulin and uses inhaler, lisinopril, Robaxin, oxybutynin, Topamax, tramadol. ALLERGIES: SHE HAS PREVIOUS ALLERGY TO SULFA DRUGS. FAMILY HISTORY: Her father had heart disease. SOCIAL HISTORY: She is . She and her live in [place]. Quit smoking years ago. No alcohol abuse. REVIEW OF SYSTEMS: She is overweight, being 5 feet 6 inches, weighing [address] [place] [address] CONSULTATION Name: HEATHER DIEHL Room: [address]#: [id number] Admission: 02/05/21 Attend Phys: Belle Gillespie Discharge: Date of : 53 Report #: [id number] pounds. She apparently had a TIA in the past. No history of liver disease, kidney disease, cancer, psychiatric illness, chronic skin condition. PHYSICAL EXAMINATION: GENERAL: Revealed an obese elderly female lying in bed. She appears in no distress. VITAL SIGNS: She had a blood pressure of 140/70, pulse 70. She is afebrile. HEENT: She was anicteric. Conjunctivae pink. Mucosa is moist. NECK: Veins nondistended. No carotid bruits. NECK: Supple. CHEST: Clear to auscultation. HEART: Regular rate and rhythm. ABDOMEN: Obese. EXTREMITIES: Had no pitting edema. Dorsalis pedis pulse, 1+ bilaterally. SKIN: Cool and dry. NEUROLOGIC: Nonfocal. LABORATORY DATA: Her ECG shows a normal sinus rhythm with no QT prolongation. The patient's lab work in 2020 included a creatinine of 1.1. Lipid profile in 2020 revealed a cholesterol 170, triglycerides 79, HDL 60, LDL 94. Hemoglobin 11.2. TSH 2.9. Echocardiogram in 2018 showed an ejection fraction of 60%. Previous nuclear stress test showed no evidence of ischemia. Previous CT scan of the head in 2018 showed no evidence of a stroke. IMPRESSION AND RECOMMENDATIONS: 1. Atrial fibrillation. The patient appears to be remaining in sinus rhythm on flecainide. She now has a Watchman in place. I will continue aspirin 81 mg a day. 2. Hypertension. The patient is on a calcium liban and ZAIDA inhibitor. 3. Asthma. The patient uses inhaler. 4. Diabetes mellitus. The patient is on insulin. 5. Recent fall, requiring surgery on her leg. 6. Obesity. 7. Arthritis. The patient is basically confined to a wheelchair. 8. Recent urinary tract infection. Rene Robles MD [facility] DRJael/MAYRA [address] [place] [address] CONSULTATION Name: HEATHER DIEHL Room: [address] IN [facility].#: [id number] Admission: 02/05/21 Attend Phys: Belle Gillespie Discharge: Date of : 53 Report #: [id number] <ELECTRONICALLY SIGNED> By: Rene Robles MD, FACC 02/13/2112 1447 2004Davibelle Robles MD, FACBere /nt
[2021-02-13 11:52] VITALS: BP 156/69
== END 2021-02-13 13:52 | disposition home health service (06) | DRG 689 ==
LOC: M.ERS 19:25 → M.ORTHSURG 02-05 00:20 → M.TBA-ER 02-05 00:20 → M.ORTHSURG 02-05 00:44 → M.2W 02-11 00:33
PROVIDERS: Family Medicine; Personal Emergency Response Attendant; ADMIT Internal Medicine; ATTEND Internal Medicine
DX: N39.0 Urinary tract infection, site not specified (principal); G93.41 Metabolic encephalopathy; I13.0 Hypertensive heart and chronic kidney disease with heart failure and stage 1 through stage 4 chronic kidney disease, or unspecified chronic kidney disease; I50.32 Chronic diastolic (congestive) heart failure; Z68.42 Body mass index [BMI] 45.0-49.9, adult; E87.1 Hypo-osmolality and hyponatremia; J44.1 Chronic obstructive pulmonary disease with (acute) exacerbation; E11.22 Type 2 diabetes mellitus with diabetic chronic kidney disease; N18.2 Chronic kidney disease, stage 2 (mild); L89.152 Pressure ulcer of sacral region, stage 2; I48.0 Paroxysmal atrial fibrillation; R09.02 Hypoxemia; G47.33 Obstructive sleep apnea (adult) (pediatric); B95.1 Streptococcus, group B, as the cause of diseases classified elsewhere; K21.9 Gastro-esophageal reflux disease without esophagitis; M19.90 Unspecified osteoarthritis, unspecified site; E66.9 Obesity, unspecified; Z20.822 Contact with and (suspected) exposure to COVID-19; T50.995A Adverse effect of other drugs, medicaments and biological substances, initial encounter; Z87.891 Personal history of nicotine dependence; Z99.3 Dependence on wheelchair; Z88.2 Allergy status to sulfonamides; Z72.89 Other problems related to lifestyle; Z90.710 Acquired absence of both cervix and uterus; Z79.899 Other long term (current) drug therapy; Z98.41 Cataract extraction status, right eye; Z90.49 Acquired absence of other specified parts of digestive tract

== ENCOUNTER 2021-03-11 19:30 | Inpatient (IN) | payer MEDICARE, MEDICAID ==
[~2021-03-11] VITALS: Ht 167.6 cm; Wt 122.4 kg
--- NOTE | ~2021-03-11 | EMS ---
[address] [address] EMS Patient Care Report Name: HEATHER DIEHL [id number] Admission: 03/11/21 Attend Phys: Discharge: Date of : 53 Report #: [id number] THIS REPORT FOR: //name// Report Transmitted: 03/11/2021 19:43 EMS Care Summary [facility] [employer] [facility] Incident [id number] @ 03/11/2021 18:41 Incident Location [address] [place] [address] Patient HEATHER DIEHL Female, 65 Years 1955 Patient Address [address] [place] [address] Patient History Chronic Obstructive Pulmonary Disease (COPD),Diabetes,Atrial Fibrillation,Sepsis,Myocardial Infarction (AR), Patient Allergies Bactrim, Chief Complaint Diahrrea Disposition Transported No Lights/[place] Dispatch Reason No Other Appropriate Choice Transported To [facility] Narrative Med 1 & Engine 1 was dispatched for a [age] year old female c/o diarrhea, weakness and unable to care for herself. Upon arrival, the patient was sitting in the recliner with her catheter and a diaper laying on her. The patient was [address] [address] EMS Patient Care Report Name: HEATHER DIEHL [id number] Admission: 03/11/21 Attend Phys: Discharge: Date of : 53 Report #: [id number] AOx3, she had a strong, regular bilateral radial pulses. The patient had feces all running down her legs, her chair was covered in it and she had ants crawling all over her body including her face. The house was infested with bugs, there was trash and empty food plates covering the living room and kitchen floor. The patient's can not physically take care of her due to his age and his medical conditions. [place] [facility] have been called on the patient twice before. She reports the hospital/rehab centers keep releasing her and sending her home. She would like assistance but does not know what else to do. Blankets were placed under the patient and she was lifted onto the stretcher. There were bugs underneath her on the chair and ants crawling on her body, face and in between the fat rolls on her stomach. Patient was wrapped in sheets and blankets to contain the insects. Patient was moved to the ambulance without incident. Med 1 went en route to [facility]. Patient was monitored throughout transport. No IV access was attempted due to all the bugs on the patient. Hospital report was given via cell phone and details of the bugs were reported. No questions or orders were received or requested. Upon arrival to the hospital, they wheeled the EMS stretcher into the hazmat room and cleaned the patient from head to toe and her arrived at the hospital POV and the nursing staff sent him home due to bugs crawling on him. Patient care was transferred to ER staff for decon in the hazmat room. Med 1 returned back to station and deconned the back of the ambulance and returned back into service. [id number] Mily Initial Vitals @19:04P: 86,R: 20,BP: 134/88,GCS: 15,SpO2: 94,Revised Trauma: 12, @19:13P: 84,R: 20,BP: 132/84,GCS: 15,SpO2: 96,Revised Trauma: 12, Assessments @19:06MENTAL:No Abnormalities,SKIN:Pale,Other,HEENT:Head/Face: No Abnormalities,LUNG SOUNDS:ABDOMEN:PELVIS//GI:EXTREMITIES:Right Arm: Other,Left Arm: Weakness,Left Leg: Weakness,Right Arm: Weakness,Right Leg: Weakness,PULSE:NEURO: Impression Diarrhea Procedures @19:06StretcherResponse: [place] [address] EMS Patient Care Report Name: HEATHER DIEHL Room: [facility]#: [id number] Admission: 03/11/21 Attend Phys: Discharge: Date of : 53 Report #: [id number] 18:40,Call Received 18:41,Dispatched 18:41,En Route 18:43,On Scene 18:44,At Patient 18:56,Depart Scene 19:04,BP: 134/88 M,PULSE: 86,RR: 20 R,SPO2: 94 Ox,ETCO2: ,BG: ,PAIN: ,GCS: 15, 19:06,Stretcher,Response: Unchanged 19:13,BP: 132/84 M,PULSE: 84,RR: 20 R,SPO2: 96 Ox,ETCO2: ,BG: ,PAIN: ,GCS: 15, 19:18,At Destination 20:22,Call Closed 20:22,In District Disclaimer v1.1 Copyright 2020 [employer] This EMS Care Summary contains data elements from the applicable legal record (which may be displayed differently). It is designed to provide pertinent information for the following purposes: continuity of care, clinical quality, and state data reporting. The complete legal record is available to ED staff and administrators of the receiving hospital in [employer]'s Patient Tracker. All data is provided "as is."
[~2021-03-11 19:30] MED LIST changes: +ASA81BEC PO; +OMEPRAZOLE 20 M20 M1 PO
[2021-03-11 19:35] VITALS: BP 151/61
[2021-03-11 20:41] LABS: ABSOLUTE EOSINOPHILS 0.3 thou/uL (0.0-0.7); ABSOLUTE LYMPHOCYTES 1.1 thou/uL (0.8-5.3); ABSOLUTE MONOCYTES 0.5 thou/uL (0.0-1.2); ABSOLUTE NEUTROPHILS 5.1 thou/uL (1.6-8.1); BASOPHILS 0.5 %; EOSINOPHILS 4.3 %; HEMATOCRIT 31.7 % (37.0-47.0); HEMOGLOBIN 10.5 gm/dL (12.0-15.0); LYMPHOCYTES 15.5 %; MCH 29.3 pg (26.0-34.0); MCV 88.6 fL (80.0-100.0); MONOCYTES 6.5 %; MPV 10.4 fl. (7.2-11.1); NUCLEATED RBCS 0 /100WBC; PLATELET COUNT* 153 thou/uL (150-400); POLYS 73.2 %; RBC 3.57 mil/uL (4.20-5.00); RDW-CV 13.6 % (10.5-14.5)
[2021-03-11 20:47] LABS: URINE BILIRUBIN NEGATIVE (Negative); URINE BLOOD TRACE (Negative); URINE CLARITY CLEAR; URINE COLOR YELLOW; URINE GLUCOSE-RANDOM NEGATIVE (Negative); URINE KETONES NEGATIVE (Negative); URINE NITRITE-REFLEX NEGATIVE (Negative); URINE PROTEIN NEGATIVE (Negative); URINE UROBILINOGEN 0.2 E.U./dl (0.2-1.0)
[2021-03-11 20:48] LABS: URINE LEUKOCYTES-REFLEX 2+ (Negative)
[2021-03-11 20:54] LABS: CALCIUM 8.1 mg/dL (8.5-10.1); CREATININE 1.5 mg/dL (0.6-1.3); POTASSIUM 4.3 mmol/L (3.5-5.1)
[2021-03-11 20:55] LABS: HYALINE CASTS 0-3 Few /LPF (None Seen); MUCUS None Seen strn/LPF (None Seen); SQUAMOUS 4-10 Moderate /LPF (0-3); URINE WBC-REFLEX >25 Many /HPF (0-5)
[2021-03-11 20:56] LABS: BACTERIA-REFLEX 1-9 Few /HPF (None Seen); WBC CLUMPS Few (None Seen); YEAST-REFLEX Present (None Seen)
[2021-03-11 20:57] LABS: CRYSTALS None Seen /LPF (None Seen); URINE RBC 0-2 Rare /HPF (0-2)
[2021-03-11 20:58] LABS: ALBUMIN 2.7 g/dL (3.4-5.0); TOTAL BILIRUBIN 0.2 mg/dL (<0.1-1.0)
[2021-03-11 23:40] VITALS: BP 148/48
[2021-03-12 03:40] VITALS: BP 100/30
[2021-03-12 07:40] VITALS: BP 135/34
[2021-03-12 11:40] VITALS: BP 153/90
--- NOTE | 2021-03-12 14:09 | EKG ---
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 : 1955 Requested By: Della Yin Order Number: [id number] MD: Yahir Wylie Measurements Intervals [place] Rate: 64 P: 32 MN: 280 QRS: -35 QRSD: 110 T: 82 QT: 436 QTc: 450 Interpretive Statements Sinus rhythm Multiple ventricular premature complexes Prolonged MN interval Minor interventricular conduction delay Baseline wander in lead(s) III,aVF Compared to ECG 02/10/2021 22:56:29 Ventricular premature complex(es) now present First degree AV block now present Minor IVCD is noted Sinus tachycardia no longer present T-wave abnormality no longer present Electronically Signed On 03-12-2021 14:08:47 CDT by Yahir Wylie [email or web address] <ELECTRONICALLY SIGNED> By: Yahir Wylie MD, [facility] 03/12/21 1408 19 19 Yahir Wylie MD, [facility] /EPI
[2021-03-12 14:43] VITALS: BP 169/39
[2021-03-12 15:32] VITALS: BP 167/58
[2021-03-12 16:00] VITALS: BP 155/69
[2021-03-13 01:14] VITALS: BP 169/51
[2021-03-13 04:30] VITALS: BP 137/57
[2021-03-13 07:35] VITALS: BP 125/42
[2021-03-13 12:21] LABS: ALBUMIN 2.5 g/dL (3.4-5.0); CALCIUM 8.1 mg/dL (8.5-10.1); POTASSIUM 4.1 mmol/L (3.5-5.1); TOTAL BILIRUBIN 0.2 mg/dL (<0.1-1.0); TOTAL PROTEIN 6.4 g/dL (6.4-8.2)
[2021-03-13 17:07] VITALS: BP 159/43
[2021-03-13 20:30] VITALS: BP 166/58
[2021-03-14 08:12] VITALS: BP 147/43
[2021-03-14 16:33] VITALS: BP 143/45
[2021-03-14 21:18] VITALS: BP 157/57
[2021-03-15 08:00] VITALS: BP 172/67
[2021-03-15 08:57] VITALS: BP 172/67
[2021-03-15] MEDS ORDERED: VANCOMYCIN HCL125 MG PO (14:21)
== END 2021-03-15 17:51 | DRG 371 ==
LOC: M.ERS 19:30 → M.2W 22:32 → M.TBA-ER 22:32 → M.2W 03-12 14:59
PROVIDERS: Nurse Practitioner Family; ADMIT Internal Medicine; ATTEND Internal Medicine
DX: A04.72 Enterocolitis due to Clostridium difficile, not specified as recurrent (principal); N17.0 Acute kidney failure with tubular necrosis; L89.154 Pressure ulcer of sacral region, stage 4; N39.0 Urinary tract infection, site not specified; I50.32 Chronic diastolic (congestive) heart failure; I13.0 Hypertensive heart and chronic kidney disease with heart failure and stage 1 through stage 4 chronic kidney disease, or unspecified chronic kidney disease; Z68.41 Body mass index [BMI] 40.0-44.9, adult; Z96.0 Presence of urogenital implants; E66.01 Morbid (severe) obesity due to excess calories; B37.2 Candidiasis of skin and nail; I48.0 Paroxysmal atrial fibrillation; Z20.822 Contact with and (suspected) exposure to COVID-19; J44.9 Chronic obstructive pulmonary disease, unspecified; N18.2 Chronic kidney disease, stage 2 (mild); B96.5 Pseudomonas (aeruginosa) (mallei) (pseudomallei) as the cause of diseases classified elsewhere; G25.0 Essential tremor; R53.81 Other malaise; E11.22 Type 2 diabetes mellitus with diabetic chronic kidney disease; S02.5XXA Fracture of tooth (traumatic), initial encounter for closed fracture; X58.XXXA Exposure to other specified factors, initial encounter; Z90.710 Acquired absence of both cervix and uterus; Z98.41 Cataract extraction status, right eye; Z90.49 Acquired absence of other specified parts of digestive tract; Z79.899 Other long term (current) drug therapy; Z79.82 Long term (current) use of aspirin; Z79.4 Long term (current) use of insulin; Z79.51 Long term (current) use of inhaled steroids; Z88.2 Allergy status to sulfonamides; Z88.8 Allergy status to other drugs, medicaments and biological substances; Z80.8 Family history of malignant neoplasm of other organs or systems; Z82.49 Family history of ischemic heart disease and other diseases of the circulatory system; Z83.3 Family history of diabetes mellitus; Z87.891 Personal history of nicotine dependence; Y93.89 Activity, other specified; Y92.89 Other specified places as the place of occurrence of the external cause; Y99.8 Other external cause status